=== PATIENT | male | born 1955 | race Caucasian/White ===

== ENCOUNTER → 2017-05-18 | Outpatient (CLI) | payer OTHER ==
[~2017-05-18] MED LIST: ATOR20TA OR; HYDROCODONE PO
[2017-05-18 10:06] LABS: Basophils # (auto) 0 uL; Basophils % (auto) 0.6 % (0.0-2.0); Eosinophils # (auto) 0.3 uL; Eosinophils % (auto) 5.7 % (0.0-7.0); Hematocrit 47.2 % (41.0-53.0); Hemoglobin 16.1 g/dL (13.5-17.5); Lymphocytes # (auto) 2.1 uL; Lymphocytes % (auto) 36.3 % (10.0-50.0); Mean Corpuscular Hemoglobin 32.7 pg (28.0-32.0); Mean Corpuscular Hgb Conc. 34.1 g/dL (32.0-36.0); Mean Corpuscular Volume 95.9 fL (80.0-100.0); Mean Platelet Volume 7.9 fL (6.9-10.8); Monocytes # (auto) 0.5 uL; Monocytes % (auto) 9.4 % (0.0-12.0); Neutrophils # (auto) 2.8 uL; Nucleated Red Blood Cells % 0.1 %; Platelet Count (auto) 238 10^3/uL (140-450); Red Cell Distribution Width 13.5 % (11.8-14.3); White Blood Cell 5.8 10^3/uL (4.4-10.8)
[2017-05-18 10:15] LABS: Urine Bilirubin Negative (Negative); Urine Blood Negative /uL (Negative); Urine Color Yellow (Yellow); Urine Glucose Normal (Normal); Urine Ketone Negative (Negative); Urine Nitrite Negative (Negative); Urine RBC 2 /hpf (0 - 3); Urine Urobilinogen Normal (Negative)
[2017-05-18 10:43] LABS: Albumin 3.9 g/dL (3.4-5.0); BUN/Creatinine Ratio 14.4; Bilirubin, Total 0.4 mg/dL (0.2-1.0); Potassium 4.2 mmol/L (3.5-5.1); Total Protein 7.4 g/dL (6.4-8.2)
== END | disposition home or self-care (01) ==
LOC: LAB 09:38
PROVIDERS: ATTEND Family Medicine
DX: I10 Essential (primary) hypertension (principal); E55.9 Vitamin D deficiency, unspecified; E78.5 Hyperlipidemia, unspecified
CPT/HCPCS: 36415; 80053; 80061; 81001; 82306; 84403; 85025

== ENCOUNTER → 2018-02-15 | Outpatient (CLI) | payer OTHER, MEDICARE ==
[2018-02-15 08:12] LABS: Basophils # (auto) 0 uL; Basophils % (auto) 0.5 % (0.0-2.0); Eosinophils # (auto) 0.3 uL; Eosinophils % (auto) 4.9 % (0.0-7.0); Hematocrit 48.6 % (41.0-53.0); Hemoglobin 16.2 g/dL (13.5-17.5); Lymphocytes # (auto) 2.2 uL; Lymphocytes % (auto) 30.6 % (10.0-50.0); Mean Corpuscular Hemoglobin 31.9 pg (28.0-32.0); Mean Corpuscular Hgb Conc. 33.4 g/dL (32.0-36.0); Mean Corpuscular Volume 95.7 fL (80.0-100.0); Monocytes # (auto) 0.6 uL; Nucleated Red Blood Cells % 0.1 %; Platelet Count (auto) 241 10^3/uL (140-450); Red Blood Cells 5.08 10^6/uL (4.5-5.90); Red Cell Distribution Width 13.7 % (11.8-14.3); White Blood Cell 7.2 10^3/uL (4.4-10.8)
[2018-02-15 08:22] LABS: Urine Bacteria NONE SEEN /hpf (None Seen); Urine Blood Negative /uL (Negative); Urine Specific Gravity 1.018 (1.001-1.035); Urine WBC 5 /hpf (0 - 3)
[2018-02-15 08:43] LABS: Alcohol, Urine < 3.0 mg/dL (0-5); Amphetamine Screen, Urine NEGATIVE (NEGATIVE); Barbiturate Scree,Urine POSITIVE (NEGATIVE); Benzodiazephine Screen, Urine NEGATIVE (NEGATIVE); Cannabinoid Screen, Urine NEGATIVE (NEGATIVE); Cocaine Screen, Urine NEGATIVE (NEGATIVE); Opiate Scree,Urine POSITIVE (NEGATIVE); Phencyclidine Screen, Urine NEGATIVE (NEGATIVE)
[2018-02-15 08:49] LABS: Albumin 3.7 g/dL (3.4-5.0); Bilirubin, Total 0.6 mg/dL (0.2-1.0); Calcium 8.7 mg/dL (8.5-10.1); Potassium 4.3 mmol/L (3.5-5.1); Total Protein 7.5 g/dL (6.4-8.2)
== END | disposition home or self-care (01) ==
LOC: LAB 07:36
PROVIDERS: ATTEND Nurse Practitioner
DX: Z02.83 Encounter for blood-alcohol and blood-drug test (principal); E78.5 Hyperlipidemia, unspecified; Z87.891 Personal history of nicotine dependence
CPT/HCPCS: 36415; 80053; 80061; 80307; 81001; 83036; 84153; 84403; 84443; 85025

== ENCOUNTER → 2018-04-10 | Outpatient (CLI) | payer OTHER, MEDICARE ==
[2018-04-10 09:41] LABS: Basophils # (auto) 0 uL; Basophils % (auto) 0.4 % (0.0-2.0); Eosinophils # (auto) 0.1 uL; Eosinophils % (auto) 2.2 % (0.0-7.0); Hemoglobin 17.3 g/dL (13.5-17.5); Lymphocytes # (auto) 1.3 uL; Lymphocytes % (auto) 20.4 % (10.0-50.0); Mean Corpuscular Hemoglobin 31.8 pg (28.0-32.0); Mean Corpuscular Hgb Conc. 33.8 g/dL (32.0-36.0); Mean Corpuscular Volume 94.1 fL (80.0-100.0); Monocytes # (auto) 0.9 uL; Monocytes % (auto) 13.7 % (0.0-12.0); Neutrophils # (auto) 3.9 uL; Neutrophils % (auto) 63.3 % (37.0-80.0); Platelet Count (auto) 273 10^3/uL (140-450); Red Blood Cells 5.42 10^6/uL (4.5-5.90); Red Cell Distribution Width 13.6 % (11.8-14.3); White Blood Cell 6.2 10^3/uL (4.4-10.8)
[2018-04-10 09:49] LABS: Urine Bacteria NONE SEEN /hpf (None Seen); Urine Blood Negative /uL (Negative); Urine Mucus FEW (None Seen); Urine Specific Gravity 1.018 (1.001-1.035); Urine WBC 2 /hpf (0 - 3)
[2018-04-10 09:58] LABS: BUN/Creatinine Ratio 15.1; Calcium 9.4 mg/dL (8.5-10.1); Potassium 3.6 mmol/L (3.5-5.1); Uric Acid 7.8 mg/dL (3.5-7.2)
[2018-04-10 10:36] LABS: Protein, Urine 11.9 mg/dL (0.0-11.9)
== END | disposition home or self-care (01) ==
LOC: LAB 09:10
PROVIDERS: ATTEND Nurse Practitioner
DX: I10 Essential (primary) hypertension (principal); E78.5 Hyperlipidemia, unspecified; E55.9 Vitamin D deficiency, unspecified
CPT/HCPCS: 36415; 80048; 81001; 82306; 82340; 82570; 84156; 84550; 85025

== ENCOUNTER → 2019-12-05 | Outpatient (CLI) | payer MEDICARE, OTHER ==
[2019-12-05 08:07] LABS: Basophils # (auto) 0 10 ^3/uL (0-0.2); Basophils % (auto) 0.4 % (0.0-2.0); Eosinophils # (auto) 0 10 ^3/uL (0-0.8); Eosinophils % (auto) 0.1 % (0.0-7.0); Hematocrit 43.4 % (41.0-53.0); Hemoglobin 14.7 g/dL (13.5-17.5); Lymphocytes # (auto) 1.7 10 ^3/uL (0.4-5.4); Lymphocytes % (auto) 21.2 % (10.0-50.0); Mean Corpuscular Hemoglobin 32.4 pg (28.0-32.0); Mean Corpuscular Hgb Conc. 33.8 g/dL (32.0-36.0); Mean Corpuscular Volume 95.8 fL (80.0-100.0); Monocytes # (auto) 0.6 10 ^3/uL (0-1.3); Monocytes % (auto) 8.3 % (0.0-12.0); Neutrophils # (auto) 5.5 10 ^3/uL (1.6-8.6); Nucleated Red Blood Cells % 0.1 %; Platelet Count (auto) 236 10^3/uL (140-450); Red Blood Cells 4.53 10^6/uL (4.5-5.90); Red Cell Distribution Width 13.7 % (11.8-14.3); White Blood Cell 7.8 10^3/uL (4.4-10.8)
[2019-12-05 08:08] LABS: Urine Bacteria FEW /hpf (None Seen); Urine Blood Negative /uL (Negative); Urine Specific Gravity 1.014 (1.001-1.035); Urine WBC 1 /hpf (0 - 3)
[2019-12-05 08:32] LABS: Albumin 3.6 g/dL (3.4-5.0); Potassium 3.7 mmol/L (3.5-5.1)
[2019-12-05 08:39] LABS: BUN/Creatinine Ratio 19.9; Bilirubin, Total 0.4 mg/dL (0.2-1.0)
== END | disposition home or self-care (01) ==
LOC: LAB 07:48
PROVIDERS: ATTEND Nurse Practitioner
DX: Z12.5 Encounter for screening for malignant neoplasm of prostate (principal); E78.5 Hyperlipidemia, unspecified; R30.0 Dysuria
CPT/HCPCS: 36415; 80053; 80061; 81001; 84153; 84443; 85025

== ENCOUNTER → 2020-12-16 | Outpatient (CLI) | payer MEDICARE, OTHER ==
[2020-12-16 09:21] LABS: Basophils # (auto) 0 10 ^3/uL (0-0.2); Basophils % (auto) 0.2 % (0.0-2.0); Eosinophils # (auto) 0 10 ^3/uL (0-0.8); Hematocrit 42.5 % (41.0-53.0); Hemoglobin 14.9 g/dL (13.5-17.5); Lymphocytes # (auto) 1.6 10 ^3/uL (0.4-5.4); Lymphocytes % (auto) 12.1 % (10.0-50.0); Mean Corpuscular Hemoglobin 32.9 pg (28.0-32.0); Mean Corpuscular Hgb Conc. 35.1 g/dL (32.0-36.0); Mean Corpuscular Volume 93.6 fL (80.0-100.0); Monocytes # (auto) 0.8 10 ^3/uL (0-1.3); Monocytes % (auto) 5.8 % (0.0-12.0); Neutrophils # (auto) 10.7 10 ^3/uL (1.6-8.6); Neutrophils % (auto) 81.9 % (37.0-80.0); Platelet Count (auto) 320 10^3/uL (140-450); Red Blood Cells 4.55 10^6/uL (4.5-5.90); Red Cell Distribution Width 13.2 % (11.8-14.3); White Blood Cell 13.1 10^3/uL (4.4-10.8)
[2020-12-16 10:01] LABS: Urine Amorphous Crystal FEW /hpf (None Seen); Urine Bacteria FEW /hpf (None Seen); Urine Blood Negative /uL (Negative); Urine Hyaline Cast FEW /lpf (0 - 2); Urine Mucus FEW (None Seen); Urine Specific Gravity 1.028 (1.001-1.035); Urine WBC 4 /hpf (0 - 3)
[2020-12-16 10:16] LABS: Calcium 9.4 mg/dL (8.5-10.1); Potassium 4.2 mmol/L (3.5-5.1)
[2020-12-16 10:27] LABS: Albumin 3.7 g/dL (3.4-5.0); BUN/Creatinine Ratio 20.5; Bilirubin, Total 0.5 mg/dL (0.2-1.0); Total Protein 7.5 g/dL (6.4-8.2)
== END | disposition home or self-care (01) ==
LOC: LAB 09:00
PROVIDERS: ATTEND Nurse Practitioner
DX: I10 Essential (primary) hypertension (principal); E78.5 Hyperlipidemia, unspecified
CPT/HCPCS: 36415; 80053; 80061; 81001; 84403; 84443; 85025; 85049

== ENCOUNTER → 2021-01-20 | Outpatient (CLI) | payer MEDICARE, OTHER | END | disposition home or self-care (01) | LOC: LAB 11:35 | PROVIDERS: ATTEND Nurse Practitioner Family | DX: Z20.822 Contact with and (suspected) exposure to COVID-19 (principal) | CPT/HCPCS: C9803; U0003 ==

== ENCOUNTER 2021-03-20 13:35 | Inpatient (IN) | payer MEDICARE, OTHER ==
[~2021-03-20] VITALS: Ht 172.7 cm; Wt 97.2 kg
[2021-03-20 14:30] LABS: Basophils # (auto) 0 10 ^3/uL (0-0.2); Basophils % (auto) 0.5 % (0.0-2.0); Eosinophils # (auto) 0.1 10 ^3/uL (0-0.8); Hemoglobin 15.3 g/dL (13.5-17.5); Lymphocytes # (auto) 2.2 10 ^3/uL (0.4-5.4); Lymphocytes % (auto) 23.1 % (10.0-50.0); Mean Corpuscular Hemoglobin 32.1 pg (28.0-32.0); Mean Corpuscular Hgb Conc. 34.1 g/dL (32.0-36.0); Mean Corpuscular Volume 94.4 fL (80.0-100.0); Monocytes % (auto) 10.8 % (0.0-12.0); Neutrophils # (auto) 6.2 10 ^3/uL (1.6-8.6); Neutrophils % (auto) 64.6 % (37.0-80.0); Red Blood Cells 4.76 10^6/uL (4.5-5.90); Red Cell Distribution Width 13.5 % (11.8-14.3); White Blood Cell 9.7 10^3/uL (4.4-10.8)
[2021-03-20 14:48] LABS: Alanine Aminotransferase 37 U/L (16-61); Albumin 3.5 g/dL (3.4-5.0); Anion Gap 6 (5-15); Blood Urea Nitrogen 39 mg/dL (7-18); Calcium 9.4 mg/dL (8.5-10.1); Carbon Dioxide 24 mmol/L (21-32); Chloride 108 mmol/L (98-107); Glucose 101 mg/dL (74-106); Magnesium 2.3 mg/dL (1.6-2.6); Potassium 3.8 mmol/L (3.5-5.1); Sodium 138 mmol/L (136-145)
[2021-03-20 14:52] LABS: Alkaline Phosphatase 38 U/L (45-117); Aspartate Aminotransferase 14 U/L (15-37); BUN/Creatinine Ratio 22.8; Bilirubin, Total 0.3 mg/dL (0.2-1.0); GFR African American 51 mL/min; GFR Non-African American 43 mL/min
[2021-03-20] MEDS ORDERED: ASPirin 81 mg TAB PO ONE (18:15)
[2021-03-20] MEDS ORDERED: MORPHINE SULFATE INJECTION 2 MG/ML SYRG IV PRN ×2 (18:15→19:00)
[2021-03-20] MEDS ORDERED: NITROGLYCERIN 0.4 MG SL TAB SL PRN (18:15)
[2021-03-20] MEDS ORDERED: HYDROcodone-ACET 10/325MG TAB PO ONE (18:45)
[2021-03-20] MEDS ORDERED: ONDANSETRON HCL 4 MG/2 ML VIAL IV PRN (19:00)
[2021-03-20] MEDS ORDERED: ACETAMINOPHEN 500 MG TAB PO PRN (19:00)
[2021-03-20] MEDS ORDERED: LACTULOSE 20Gm/30ML SOLN PO PRN (19:00)
[2021-03-20 20:28] VITALS: BP 111/73
[2021-03-20] MEDS: SODIUM CHLORIDE 0.9% 1,000 ML IV SCH ×2 (20:57→22:25)
[2021-03-20 22:00] VITALS: BP 115/60
[2021-03-20] MEDS: ATORVASTATIN 20 MG TAB PO SCH (22:26)
[2021-03-20] MEDS: CARVEDILOL 3.125 MG TAB PO SCH (22:26)
[2021-03-20] MEDS ORDERED: ZOLP10TA PO (22:29)
[2021-03-20] MEDS ORDERED: LISI-716 PO (22:29)
[2021-03-20] MEDS ORDERED: FENO1TAB41 PO (22:29)
[2021-03-20] MEDS ORDERED: CHLO25TA2 PO (22:29)
[2021-03-20] MEDS ORDERED: FINA5TAB4 PO (22:29)
[2021-03-20] MEDS ORDERED: TAM04C PO (22:29)
[2021-03-20] MEDS ORDERED: HYDR-4798 PO (22:29)
[2021-03-20] MEDS ORDERED: BUTA-280 OR (22:29)
[2021-03-21 05:00] VITALS: BP 102/60
[2021-03-21 07:07] LABS: Chloride 109 mmol/L (98-107); Sodium 139 mmol/L (136-145)
[2021-03-21 07:17] LABS: Alanine Aminotransferase 29 U/L (16-61); Alkaline Phosphatase 29 U/L (45-117); Anion Gap 6 (5-15); Aspartate Aminotransferase 15 U/L (15-37); BUN/Creatinine Ratio 27.8; Basophils # (auto) 0 10 ^3/uL (0-0.2); Basophils % (auto) 0.3 % (0.0-2.0); Bilirubin, Total 0.5 mg/dL (0.2-1.0); Blood Urea Nitrogen 37 mg/dL (7-18); Calcium 8.4 mg/dL (8.5-10.1); Carbon Dioxide 24 mmol/L (21-32); Cholesterol 155 mg/dL (< 200); Eosinophils # (auto) 0.1 10 ^3/uL (0-0.8); Eosinophils % (auto) 1.6 % (0.0-7.0); GFR African American 69 mL/min; GFR Non-African American 57 mL/min; Glucose 90 mg/dL (74-106); HDL Cholesterol 46 mg/dL (40-59); Hematocrit 42.5 % (41.0-53.0); LDL Cholesterol 92 mg/dL (< 100); Lymphocytes # (auto) 2.1 10 ^3/uL (0.4-5.4); Lymphocytes % (auto) 28.9 % (10.0-50.0); Mean Corpuscular Hemoglobin 31.5 pg (28.0-32.0); Mean Corpuscular Volume 95.7 fL (80.0-100.0); Monocytes # (auto) 0.6 10 ^3/uL (0-1.3); Monocytes % (auto) 7.9 % (0.0-12.0); Neutrophils # (auto) 4.5 10 ^3/uL (1.6-8.6); Neutrophils % (auto) 61.3 % (37.0-80.0); Nucleated Red Blood Cells % 0.1 %; Red Blood Cells 4.44 10^6/uL (4.5-5.90); Red Cell Distribution Width 13.6 % (11.8-14.3); Triglycerides 134 mg/dL (< 150); White Blood Cell 7.3 10^3/uL (4.4-10.8)
[2021-03-21] MEDS: SODIUM CHLORIDE 0.9% 1,000 ML IV SCH ×2 (08:16→22:47)
[2021-03-21 09:00] VITALS: BP 121/67
[2021-03-21] MEDS: ASPirin 81 mg TAB PO SCH (09:51)
[2021-03-21] MEDS: LISINOPRIL 10 MG TAB PO SCH (09:52)
[2021-03-21] MEDS: ENOXAPARIN SOD 40 MG/0.4 ML SYRINGE SC SCH (09:52)
[2021-03-21] MEDS: CARVEDILOL 3.125 MG TAB PO SCH ×2 (09:52→22:00)
[2021-03-21] MEDS: NITROGLYCERIN 0.2MG/HR TOPICAL PATCH TD SCH (09:53)
[2021-03-21] MEDS: HYDROcodone-ACET 10/325MG TAB PO PRN ×3 (10:14→22:49)
[2021-03-21 13:00] VITALS: BP 115/58
[2021-03-21 17:00] VITALS: BP 125/72
[2021-03-21] MEDS: TAMSULOSIN HYDROCHLORIDE 0.4 MG CAP PO SCH (18:09)
[2021-03-21 22:00] VITALS: BP 119/67
[2021-03-21] MEDS: ATORVASTATIN 20 MG TAB PO SCH (22:49)
[2021-03-22 05:00] VITALS: BP 96/72
[2021-03-22 05:57] LABS: BUN/Creatinine Ratio 22.4; Calcium 8.5 mg/dL (8.5-10.1)
[2021-03-22 06:00] VITALS: BP 113/70
[2021-03-22] MEDS: HYDROcodone-ACET 10/325MG TAB PO PRN ×2 (06:02→13:52)
[2021-03-22 08:00] VITALS: BP 112/69
[2021-03-22] MEDS ORDERED: ADENOSINE 82 MG in GIVE UN-DILUTED 0 ML IV STA (10:03)
[2021-03-22 10:47] VITALS: BP 118/72
[2021-03-22] MEDS: ASPirin 81 mg TAB PO SCH (12:20)
[2021-03-22] MEDS: ENOXAPARIN SOD 40 MG/0.4 ML SYRINGE SC SCH (12:21)
[2021-03-22] MEDS: LISINOPRIL 10 MG TAB PO SCH (12:21)
[2021-03-22] MEDS: CARVEDILOL 3.125 MG TAB PO SCH (12:21)
[2021-03-22] MEDS: SODIUM CHLORIDE 0.9% 1,000 ML IV SCH (12:22)
[2021-03-22] MEDS: NITROGLYCERIN 0.2MG/HR TOPICAL PATCH TD SCH (12:22)
[2021-03-22 13:00] VITALS: BP 128/75
[2021-03-22 17:09] VITALS: BP 115/72
[2021-03-22] MEDS: TAMSULOSIN HYDROCHLORIDE 0.4 MG CAP PO SCH (17:36)
[2021-03-22] MEDS ORDERED: ATORVASTATIN 20 MG TAB PO SCH (22:00)
== END 2021-03-22 20:09 | disposition home or self-care (01) | DRG 311 ==
LOC: ER 13:36 → TELE 18:12 → TELE-WESTW 19:50
PROVIDERS: ADMIT Internal Medicine; ATTEND Internal Medicine Geriatric Medicine
DX: I20.9 Angina pectoris, unspecified (principal); I48.91 Unspecified atrial fibrillation; I73.9 Peripheral vascular disease, unspecified; I12.9 Hypertensive chronic kidney disease with stage 1 through stage 4 chronic kidney disease, or unspecified chronic kidney disease; E78.5 Hyperlipidemia, unspecified; Z20.822 Contact with and (suspected) exposure to COVID-19; N40.0 Benign prostatic hyperplasia without lower urinary tract symptoms; G89.29 Other chronic pain; Z82.0 Family history of epilepsy and other diseases of the nervous system; Z82.49 Family history of ischemic heart disease and other diseases of the circulatory system; Z90.49 Acquired absence of other specified parts of digestive tract; N18.31 Chronic kidney disease, stage 3a
CPT/HCPCS: 36415; 71045; 78452; 80048; 80053; 80061; 82550; 83735; 83880; 84443; 84484; 85025; 85379; 87426; 93005; 93017; 93306; 96374; G0378; J0153

== ENCOUNTER 2021-05-02 00:32 | Emergency (ER) | payer MEDICARE, OTHER ==
[~2021-05-02] VITALS: Ht 172.7 cm; Wt 93.0 kg
[~2021-05-02 00:32] MED LIST changes: +BUTA-280 OR; +CHLO25TA2 PO; +FENO1TAB41 PO; +FINA5TAB4 PO; +HYDR-4798 PO; +LISI-716 PO; +TAM04C PO; +ZOLP10TA PO
[2021-05-02 00:33] VITALS: BP 115/81
== END 2021-05-02 00:58 | disposition left against medical advice (07) ==
LOC: ER 00:32
DX: R00.2 Palpitations (principal); Z53.21 Procedure and treatment not carried out due to patient leaving prior to being seen by health care provider
CPT/HCPCS: 93005

== ENCOUNTER → 2021-07-08 | Outpatient (CLI) | payer MEDICARE, OTHER ==
[2021-07-08 08:39] LABS: Albumin 3.6 g/dL (3.4-5.0); Calcium 9.1 mg/dL (8.5-10.1); Potassium 3.8 mmol/L (3.5-5.1)
[2021-07-08 08:43] LABS: BUN/Creatinine Ratio 19.1; Bilirubin, Total 0.5 mg/dL (0.2-1.0); Total Protein 6.9 g/dL (6.4-8.2)
== END | disposition home or self-care (01) ==
LOC: LAB 08:03
PROVIDERS: ATTEND Nurse Practitioner
DX: R73.9 Hyperglycemia, unspecified (principal)
CPT/HCPCS: 36415; 80053; 83036

== ENCOUNTER 2021-09-12 15:19 | Inpatient (IN) | payer MEDICARE, OTHER ==
[~2021-09-12] VITALS: Ht 172.7 cm; Wt 93.0 kg
[2021-09-12] MEDS ORDERED: ASPirin 81 mg TAB PO ONE (15:45)
[2021-09-12] MEDS ORDERED: METOPROLOL TARTRATE 1MG/1ML-5ML VIAL IV ONE (15:45)
[2021-09-12 17:19] LABS: Basophils # (auto) 0.1 10 ^3/uL (0-0.2); Basophils % (auto) 0.9 % (0.0-2.0); Eosinophils # (auto) 0.3 10 ^3/uL (0-0.8); Eosinophils % (auto) 3.4 % (0.0-7.0); Hematocrit 43.9 % (41.0-53.0); Hemoglobin 15.2 g/dL (13.5-17.5); Lymphocytes # (auto) 2.4 10 ^3/uL (0.4-5.4); Lymphocytes % (auto) 25.6 % (10.0-50.0); Mean Corpuscular Hemoglobin 32.3 pg (28.0-32.0); Mean Corpuscular Hgb Conc. 34.7 g/dL (32.0-36.0); Mean Corpuscular Volume 92.9 fL (80.0-100.0); Monocytes # (auto) 1.1 10 ^3/uL (0-1.3); Monocytes % (auto) 11.7 % (0.0-12.0); Neutrophils # (auto) 5.4 10 ^3/uL (1.6-8.6); Neutrophils % (auto) 58.4 % (37.0-80.0); Nucleated Red Blood Cells % 0.1 %; Red Blood Cells 4.72 10^6/uL (4.5-5.90); Red Cell Distribution Width 13.6 % (11.8-14.3); White Blood Cell 9.3 10^3/uL (4.4-10.8)
[2021-09-12 17:21] LABS: Albumin 3.5 g/dL (3.4-5.0); BUN/Creatinine Ratio 20.8; Calcium 9.5 mg/dL (8.5-10.1); Potassium 3.6 mmol/L (3.5-5.1)
[2021-09-12 17:25] LABS: Bilirubin, Total 0.4 mg/dL (0.2-1.0); Total Protein 7.2 g/dL (6.4-8.2)
[2021-09-12 17:45] LABS: INR 1.01 (0.9-1.15)
[2021-09-12] MEDS ORDERED: MORPHINE SULFATE INJECTION 2 MG/ML SYRG IV PRN ×2 (17:45→19:30)
[2021-09-12] MEDS ORDERED: NITROGLYCERIN 0.4 MG SL TAB SL PRN (17:45)
[2021-09-12 19:30] VITALS: BP 107/75
[2021-09-12] MEDS ORDERED: METOPROLOL TARTRATE 1MG/1ML-5ML VIAL IV PRN (19:30)
[2021-09-12] MEDS ORDERED: ACETAMINOPHEN 325 MG TAB PO PRN (19:30)
[2021-09-12] MEDS ORDERED: HYDROcodone-ACET 5/325MG TAB PO PRN (19:30)
[2021-09-12] MEDS ORDERED: METOPROLOL SUCCINATE XL 50 MG TAB PO ONE (19:30)
[2021-09-12] MEDS ORDERED: DOCUSATE SOD 100 MG CAP PO PRN (19:30)
[2021-09-12] MEDS ORDERED: SODIUM CHLORIDE 0.9% 1,000 ML IV SCH (19:30)
[2021-09-12] MEDS ORDERED: IPRATROPIUM BROM 0.5 MG/2.5ML INH SOL NEB ONE (19:30)
[2021-09-12] MEDS ORDERED: hydrALAZINE HCL 20 MG/ML VL IV PRN (19:30)
[2021-09-12] MEDS ORDERED: HYDROcodone-ACET 5/325MG TAB PO ONE (19:30)
[2021-09-12] MEDS ORDERED: LACTULOSE 20Gm/30ML SOLN PO PRN (19:30)
[2021-09-12] MEDS ORDERED: METOCLOPRAMIDE HCL 5MG/ml INJ 2ml VIAL IV PRN (19:30)
[2021-09-12] MEDS ORDERED: FAMOTIDINE (10MG/ML) 2ML VL IV ONE (19:30)
[2021-09-12] MEDS ORDERED: IPRATROPIUM BROM 0.5 MG/2.5ML INH SOL NEB PRN (19:36)
[2021-09-12 19:54] LABS: Magnesium 2.2 mg/dL (1.6-2.6)
[2021-09-12] MEDS ORDERED: IPRATROPIUM BROM 0.5 MG/2.5ML INH SOL NEB SCH (22:00)
[2021-09-12] MEDS ORDERED: ATORVASTATIN 20 MG TAB PO SCH (22:00)
[2021-09-12] MEDS ORDERED: APIXABAN 5 MG TAB PO SCH (22:00)
[2021-09-13 01:00] VITALS: BP 106/75
[2021-09-13] MEDS ORDERED: BENAZEPRIL HCL 10 MG TAB PO SCH (10:00)
[2021-09-13] MEDS ORDERED: HCTZ 25 MG TAB PO SCH (10:00)
[2021-09-13] MEDS ORDERED: METOPROLOL SUCCINATE XL 50 MG TAB PO SCH (10:00)
[2021-09-13] MEDS ORDERED: ASPirin 81 mg TAB PO SCH (10:00)
[2021-09-13] MEDS ORDERED: FAMOTIDINE (10MG/ML) 2ML VL IV SCH (10:00)
[2021-09-13] MEDS ORDERED: FINASTERIDE 5 MG TAB PO SCH (10:00)
[2021-09-13] MEDS ORDERED: GEMFIBROZIL 600 MG TAB PO SCH (10:00)
[2021-09-13] MEDS ORDERED: TAMSULOSIN HYDROCHLORIDE 0.4 MG CAP PO SCH (18:00)
== END 2021-09-13 01:15 | disposition left against medical advice (07) | DRG 308 ==
LOC: ER 15:19 → TELE 17:41
PROVIDERS: ADMIT Hospitalist; ATTEND Hospitalist
DX: I48.0 Paroxysmal atrial fibrillation (principal); N17.0 Acute kidney failure with tubular necrosis; N18.6 End stage renal disease; I12.0 Hypertensive chronic kidney disease with stage 5 chronic kidney disease or end stage renal disease; E29.1 Testicular hypofunction; E66.01 Morbid (severe) obesity due to excess calories; N40.0 Benign prostatic hyperplasia without lower urinary tract symptoms; Z53.29 Procedure and treatment not carried out because of patient's decision for other reasons; Z79.899 Other long term (current) drug therapy; Z90.49 Acquired absence of other specified parts of digestive tract; Z20.822 Contact with and (suspected) exposure to COVID-19
CPT/HCPCS: 36415; 71045; 80053; 83735; 83880; 84100; 84443; 84484; 85025; 85379; 85610; 85730; 87040; 87086; 93005; 94640; 96361; 96374; G0378; J3490

== ENCOUNTER 2022-04-28 11:43 | Emergency (ER) | payer MEDICARE, OTHER ==
[~2022-04-28] VITALS: Ht 172.7 cm; Wt 95.4 kg
[2022-04-28 12:13] LABS: Basophils # (auto) 0 10 ^3/uL (0-0.2); Basophils % (auto) 0.4 % (0.0-2.0); Eosinophils # (auto) 0 10 ^3/uL (0-0.8); Eosinophils % (auto) 0.1 % (0.0-7.0); Hematocrit 43.3 % (41.0-53.0); Hemoglobin 14.7 g/dL (13.5-17.5); Lymphocytes # (auto) 1.6 10 ^3/uL (0.4-5.4); Mean Corpuscular Hemoglobin 32.2 pg (28.0-32.0); Mean Corpuscular Hgb Conc. 33.9 g/dL (32.0-36.0); Mean Corpuscular Volume 95.2 fL (80.0-100.0); Monocytes # (auto) 0.7 10 ^3/uL (0-1.3); Monocytes % (auto) 8.9 % (0.0-12.0); Neutrophils # (auto) 5.9 10 ^3/uL (1.6-8.6); Neutrophils % (auto) 71.6 % (37.0-80.0); Red Blood Cells 4.55 10^6/uL (4.5-5.90); White Blood Cell 8.2 10^3/uL (4.4-10.8)
[2022-04-28 12:24] LABS: Albumin 3.4 g/dL (3.4-5.0); BUN/Creatinine Ratio 22.5; Calcium 9.1 mg/dL (8.5-10.1); Magnesium 2.1 mg/dL (1.6-2.6); Potassium 3.8 mmol/L (3.5-5.1)
[2022-04-28 12:27] LABS: Bilirubin, Total 0.4 mg/dL (0.2-1.0); Total Protein 6.6 g/dL (6.4-8.2)
[2022-04-28 14:42] VITALS: BP 106/64
== END 2022-04-28 14:52 | disposition home or self-care (01) ==
LOC: ER 11:43
DX: E11.22 Type 2 diabetes mellitus with diabetic chronic kidney disease (principal); I12.9 Hypertensive chronic kidney disease with stage 1 through stage 4 chronic kidney disease, or unspecified chronic kidney disease; R00.2 Palpitations; E11.65 Type 2 diabetes mellitus with hyperglycemia; N18.6 End stage renal disease; I48.91 Unspecified atrial fibrillation; Z79.84 Long term (current) use of oral hypoglycemic drugs; Z90.49 Acquired absence of other specified parts of digestive tract
CPT/HCPCS: 36415; 71045; 80053; 83735; 84443; 84484; 85025; 93005

== ENCOUNTER → 2022-07-13 | Outpatient (CLI) | payer MEDICARE, OTHER ==
[2022-07-13 09:55] LABS: Urine Bacteria NONE SEEN /hpf (None Seen); Urine Blood Negative /uL (Negative); Urine Specific Gravity 1.018 (1.001-1.035); Urine WBC 2 /hpf (0 - 3)
[2022-07-13 09:59] LABS: Basophils # (auto) 0 10 ^3/uL (0-0.2); Basophils % (auto) 0.5 % (0.0-2.0); Eosinophils # (auto) 0.2 10 ^3/uL (0-0.8); Eosinophils % (auto) 3.6 % (0.0-7.0); Hematocrit 42.5 % (41.0-53.0); Hemoglobin 14.1 g/dL (13.5-17.5); Lymphocytes # (auto) 1.6 10 ^3/uL (0.4-5.4); Lymphocytes % (auto) 26.6 % (10.0-50.0); Mean Corpuscular Hemoglobin 31.6 pg (28.0-32.0); Mean Corpuscular Hgb Conc. 33.3 g/dL (32.0-36.0); Mean Corpuscular Volume 95.1 fL (80.0-100.0); Monocytes # (auto) 0.6 10 ^3/uL (0-1.3); Monocytes % (auto) 10.2 % (0.0-12.0); Neutrophils # (auto) 3.6 10 ^3/uL (1.6-8.6); Neutrophils % (auto) 59.1 % (37.0-80.0); Red Blood Cells 4.47 10^6/uL (4.5-5.90); Red Cell Distribution Width 13.4 % (11.8-14.3); White Blood Cell 6.1 10^3/uL (4.4-10.8)
[2022-07-13 10:12] LABS: Potassium 4.4 mmol/L (3.5-5.1)
[2022-07-13 10:21] LABS: Albumin 3.6 g/dL (3.4-5.0); BUN/Creatinine Ratio 16.9; Bilirubin, Total 0.3 mg/dL (0.2-1.0); Calcium 9.2 mg/dL (8.5-10.1); Total Protein 6.8 g/dL (6.4-8.2)
== END | disposition home or self-care (01) ==
LOC: LAB 09:19
PROVIDERS: ATTEND Nurse Practitioner
DX: I10 Essential (primary) hypertension (principal); E78.5 Hyperlipidemia, unspecified
CPT/HCPCS: 36415; 80053; 80061; 81001; 85025

== ENCOUNTER → 2023-10-11 | Outpatient (CLI) | payer MEDICARE, OTHER ==
[~2023-10-11] MED LIST changes: -LISI-716 PO; +LISI10TA34 PO; -TAM04C PO; +TAMS-35 PO
[2023-10-11 08:33] LABS: Urine Bacteria None Seen /hpf (None Seen)
[2023-10-11 08:39] LABS: Basophils # (auto) 0 10 ^3/uL (0-0.2); Eosinophils # (auto) 0.2 10 ^3/uL (0-0.8); Monocytes # (auto) 0.6 10 ^3/uL (0-1.3); Neutrophils # (auto) 3.9 10 ^3/uL (1.6-8.6); White Blood Cell 6.3 10^3/uL (4.4-10.8)
[2023-10-11 08:40] LABS: Basophils % (auto) 0.4 % (0.0-2.0); Eosinophils % (auto) 3.2 % (0.0-7.0); Hemoglobin 18.4 g/dL (13.5-17.5); Lymphocytes # (auto) 1.5 10 ^3/uL (0.4-5.4); Lymphocytes % (auto) 24.5 % (10.0-50.0); Mean Corpuscular Hemoglobin 32.9 pg (28.0-32.0); Mean Corpuscular Hgb Conc. 34.1 g/dL (32.0-36.0); Mean Corpuscular Volume 96.6 fL (80.0-100.0); Monocytes % (auto) 9.4 % (0.0-12.0); Neutrophils % (auto) 62.5 % (37.0-80.0); Nucleated Red Blood Cells % 0.2 %; Red Blood Cells 5.59 10^6/uL (4.5-5.90); Red Cell Distribution Width 14.2 % (11.8-14.3)
[2023-10-11 08:51] LABS: Urine Blood Negative /uL (Negative); Urine Clarity Clear (Clear); Urine Color Yellow (Yellow); Urine Protein, UAD Negative (Negative); Urine Specific Gravity 1.019 (1.001-1.035); Urine Urobilinogen Normal (Negative); Urine WBC 1 /hpf (0 - 3)
[2023-10-11 09:38] LABS: Alanine Aminotransferase 17 U/L (7-40); Alkaline Phosphatase 40 U/L (46-116); Anion Gap 5 (5-15); BUN/Creatinine Ratio 13.3 (10.0-20.0); Blood Urea Nitrogen 19 mg/dL (9-23); Calcium 10.2 mg/dL (8.5-10.1); Carbon Dioxide 30 mmol/L (20-30); Chloride 103 mmol/L (98-107); Glucose 92 mg/dL (74-106); LDL Cholesterol 96 mg/dL (< 100); Potassium 4.3 mmol/L (3.5-5.1); Sodium 138 mmol/L (136-145); Triglycerides 127 mg/dL (< 150)
[2023-10-11 09:39] LABS: Albumin 4.5 g/dL (3.2-4.8); Aspartate Aminotransferase 18 U/L (13-40); Cholesterol 164 mg/dL (< 200)
[2023-10-11 09:40] LABS: HDL Cholesterol 50 mg/dL (40-59); Total Protein 7.2 g/dL (5.7-8.2)
== END | disposition home or self-care (01) ==
LOC: LAB 08:22
PROVIDERS: ATTEND Nurse Practitioner
DX: Z12.5 Encounter for screening for malignant neoplasm of prostate (principal); I10 Essential (primary) hypertension; E78.5 Hyperlipidemia, unspecified; E03.9 Hypothyroidism, unspecified; R73.9 Hyperglycemia, unspecified
CPT/HCPCS: 36415; 80053; 80061; 81001; 83036; 84153; 84403; 84443; 85025

== ENCOUNTER 2024-02-25 16:09 | Emergency (ER) | payer MEDICARE, OTHER ==
[~2024-02-25] VITALS: Ht 170.2 cm; Wt 88.3 kg
[2024-02-25 17:06] LABS: Basophils # (auto) 0 10 ^3/uL (0-0.2); Basophils % (auto) 0.4 % (0.0-2.0); Eosinophils # (auto) 0.1 10 ^3/uL (0-0.8); Eosinophils % (auto) 1.2 % (0.0-7.0); Hematocrit 31.6 % (41.0-53.0); Hemoglobin 10.8 g/dL (13.5-17.5); Lymphocytes # (auto) 1.3 10 ^3/uL (0.4-5.4); Lymphocytes % (auto) 13.8 % (10.0-50.0); Mean Corpuscular Hemoglobin 34.2 pg (28.0-32.0); Mean Corpuscular Hgb Conc. 34.3 g/dL (32.0-36.0); Monocytes # (auto) 0.6 10 ^3/uL (0-1.3); Neutrophils # (auto) 7.1 10 ^3/uL (1.6-8.6); Neutrophils % (auto) 77.6 % (37.0-80.0); Platelet Count (auto) 237 10^3/uL (140-450); Red Blood Cells 3.16 10^6/uL (4.5-5.90); Red Cell Distribution Width 14.2 % (11.8-14.3); White Blood Cell 9.2 10^3/uL (4.4-10.8)
[2024-02-25 17:26] LABS: Alanine Aminotransferase 12 U/L (7-40); Albumin 4.1 g/dL (3.2-4.8); Alkaline Phosphatase 28 U/L (46-116); Anion Gap 6 (5-15); Aspartate Aminotransferase 10 U/L (13-40); BUN/Creatinine Ratio 41.6 (10.0-20.0); Bilirubin, Total 0.5 mg/dL (0.2-1.0); Blood Urea Nitrogen 67 mg/dL (9-23); Calcium 10.6 mg/dL (8.7-10.4); Carbon Dioxide 27 mmol/L (20-30); Chloride 103 mmol/L (98-107); Glucose 111 mg/dL (74-106); Lipase 66 U/L (12-53); Potassium 3.4 mmol/L (3.5-5.1); Sodium 136 mmol/L (136-145); Total Protein 6.2 g/dL (5.7-8.2)
[2024-02-25] MEDS: DICYCLOMINE HCL (10MG/ML) 2 ML AMPULE IM ONE (17:41)
[2024-02-25 22:27] VITALS: BP 112/70; PULSE 92; RESP 16; TEMP 98; O2SAT 98
== END 2024-02-25 22:30 | disposition home or self-care (01) ==
LOC: ER 16:09
DX: S37.099A Other injury of unspecified kidney, initial encounter (principal); D64.9 Anemia, unspecified; R19.5 Other fecal abnormalities; I12.0 Hypertensive chronic kidney disease with stage 5 chronic kidney disease or end stage renal disease; N18.6 End stage renal disease; E78.5 Hyperlipidemia, unspecified; I48.91 Unspecified atrial fibrillation; E66.9 Obesity, unspecified; Z68.30 Body mass index [BMI] 30.0-30.9, adult; Z98.890 Other specified postprocedural states; Z79.899 Other long term (current) drug therapy; X58.XXXA Exposure to other specified factors, initial encounter; Y93.89 Activity, other specified; Y92.89 Other specified places as the place of occurrence of the external cause; Y99.8 Other external cause status
CPT/HCPCS: 36415; 80053; 83690; 85025; 93005; 96372; 99284; J0500

== ENCOUNTER 2024-02-26 08:11 | Inpatient (IN) | payer MEDICARE, OTHER ==
[~2024-02-26] VITALS: Ht 170.2 cm; Wt 88.0 kg
[2024-02-26 09:20] LABS: Basophils # (auto) 0 10 ^3/uL (0-0.2); Basophils % (auto) 0.4 % (0.0-2.0); Eosinophils # (auto) 0.1 10 ^3/uL (0-0.8); Hemoglobin 10.5 g/dL (13.5-17.5); Monocytes # (auto) 0.6 10 ^3/uL (0-1.3)
[2024-02-26 09:23] LABS: Eosinophils % (auto) 1.6 % (0.0-7.0); Hematocrit 29.9 % (41.0-53.0); Lymphocytes # (auto) 0.9 10 ^3/uL (0.4-5.4); Lymphocytes % (auto) 12.4 % (10.0-50.0); Mean Corpuscular Hemoglobin 35.2 pg (28.0-32.0); Mean Corpuscular Hgb Conc. 35.1 g/dL (32.0-36.0); Mean Corpuscular Volume 100.1 fL (80.0-100.0); Monocytes % (auto) 7.5 % (0.0-12.0); Neutrophils # (auto) 5.9 10 ^3/uL (1.6-8.6); Neutrophils % (auto) 78.1 % (37.0-80.0); Nucleated Red Blood Cells % 0.1 %; Platelet Count (auto) 219 10^3/uL (140-450); Red Blood Cells 2.98 10^6/uL (4.5-5.90); Red Cell Distribution Width 14.1 % (11.8-14.3); White Blood Cell 7.5 10^3/uL (4.4-10.8)
[2024-02-26 10:18] LABS: Chloride 102 mmol/L (98-107); Potassium 3.9 mmol/L (3.5-5.1); Sodium 137 mmol/L (136-145)
[2024-02-26 10:19] LABS: Anion Gap 7 (5-15); Calcium 9.8 mg/dL (8.7-10.4); Carbon Dioxide 28 mmol/L (20-30)
[2024-02-26 10:24] LABS: Blood Urea Nitrogen 64 mg/dL (9-23); Glucose 115 mg/dL (74-106)
[2024-02-26 14:21] LABS: Prothrombin Time 10.6 sec (9.3-11.8)
[2024-02-26] MEDS: PANTOPRAZOLE 40 MG/10 ML VIAL INJ IV ONE (14:23)
[2024-02-26] MEDS: SODIUM CHLORIDE 0.9% 1,000 ML IV ONE (14:43)
[2024-02-26] MEDS ORDERED: DOCUSATE SOD 100 MG CAP PO PRN (16:30)
[2024-02-26] MEDS ORDERED: MORPHINE SULFATE INJ 2 MG/ml SYRG IV PRN (16:30)
[2024-02-26] MEDS: PANTOPRAZOLE 80 MG in SODIUM CHL 0.9% 100 ML IV ONE (16:30)
[2024-02-26] MEDS ORDERED: ONDANSETRON HCL 4 MG/2 ML VIAL IV PRN (16:30)
[2024-02-26] MEDS ORDERED: NITROGLYCERIN 0.4 MG SL TAB SL PRN (16:30)
[2024-02-26] MEDS ORDERED: PIPERACILLIN-TAZOB 3.375GM 100 ML IV ONE (17:00)
[2024-02-26] MEDS: PIPERACILLIN-TAZOB 3.375GM 100 ML IV ONE (17:15)
[2024-02-26 18:20] LABS: Hemoglobin 9.2 g/dL (13.5-17.5)
[2024-02-26 18:23] LABS: Hematocrit 26.8 % (41.0-53.0)
[2024-02-26] MEDS: SODIUM CHLORIDE 0.9% 1,000 ML IV SCH (18:25)
[2024-02-26] MEDS: OCTREOTIDE ACETATE 100 MCG in SODIUM CHL 0.9% 50 ML IV ONE (18:45)
[2024-02-26 19:02] VITALS: BP 100/57; PULSE 85; PULSE 88; RESP 16; RESP 18; TEMP 97.7; O2SAT 95; O2SAT 99
[2024-02-26 19:11] VITALS: BP 99/60; PULSE 78; RESP 18; TEMP 98.1; O2SAT 97
[2024-02-26] MEDS: PIPERACILLIN-TAZOB 3.375GM 100 ML IV SCH (19:51)
[2024-02-26 20:00] VITALS: PULSE 88; RESP 16; O2SAT 98
[2024-02-26] MEDS: PANTOPRAZOLE 40mg/50ML NS AE 50 ML IV SCH (20:04)
[2024-02-26 21:00] VITALS: BP 100/57; PULSE 85; RESP 18; TEMP 97.7; O2SAT 95
[2024-02-26] MEDS: OCTREOTIDE ACETATE 500 MCG in SODIUM CHL 0.9% 99 ML IV SCH (23:41)
[2024-02-27] VITALS (8 sets, daily range): BP systolic 99–112; BP diastolic 59–63; PULSE 17–93; RESP 14–81; TEMP 97.8–98.4; O2SAT 91–99
[2024-02-27 00:30] LABS: Hematocrit 24.8 % (41.0-53.0); Hemoglobin 8.6 g/dL (13.5-17.5)
[2024-02-27] MEDS ORDERED: METO25TA93 PO ×2 (02:09)
[2024-02-27] MEDS ORDERED: RIV15T PO ×2 (02:09)
[2024-02-27] MEDS: OCTREOTIDE ACETATE 100 MCG/ML VL ONE (05:20)
[2024-02-27 06:22] LABS: Basophils # (auto) 0 10 ^3/uL (0-0.2); Basophils % (auto) 0.4 % (0.0-2.0); Eosinophils # (auto) 0.2 10 ^3/uL (0-0.8); Monocytes # (auto) 0.6 10 ^3/uL (0-1.3); Neutrophils # (auto) 3.2 10 ^3/uL (1.6-8.6); Nucleated Red Blood Cells % 0.1 %; Red Cell Distribution Width 14.3 % (11.8-14.3); White Blood Cell 5.1 10^3/uL (4.4-10.8)
[2024-02-27 06:25] LABS: Eosinophils % (auto) 4.1 % (0.0-7.0); Hematocrit 25.5 % (41.0-53.0); Hemoglobin 8.8 g/dL (13.5-17.5); Lymphocytes % (auto) 20.7 % (10.0-50.0); Mean Corpuscular Hemoglobin 34.9 pg (28.0-32.0); Mean Corpuscular Hgb Conc. 34.4 g/dL (32.0-36.0); Mean Corpuscular Volume 101.6 fL (80.0-100.0); Monocytes % (auto) 12.3 % (0.0-12.0); Neutrophils % (auto) 62.5 % (37.0-80.0); Platelet Count (auto) 190 10^3/uL (140-450); Red Blood Cells 2.51 10^6/uL (4.5-5.90)
[2024-02-27 06:45] LABS: Alanine Aminotransferase 21 U/L (7-40); Albumin 3.7 g/dL (3.2-4.8); Alkaline Phosphatase 28 U/L (46-116); Anion Gap 5 (5-15); Aspartate Aminotransferase 20 U/L (13-40); BUN/Creatinine Ratio 24.4 (10.0-20.0); Calcium 8.8 mg/dL (8.7-10.4); Carbon Dioxide 26 mmol/L (20-30); Chloride 105 mmol/L (98-107); Glucose 126 mg/dL (74-106); Potassium 3.7 mmol/L (3.5-5.1); Sodium 136 mmol/L (136-145)
[2024-02-27 06:46] LABS: Bilirubin, Total 0.7 mg/dL (0.2-1.0); Total Protein 5.5 g/dL (5.7-8.2)
[2024-02-27 06:52] LABS: Blood Urea Nitrogen 41 mg/dL (9-23)
[2024-02-27] MEDS ORDERED: NALOXONE HCL 0.4 MG/ML VIAL ONE (09:15)
[2024-02-27] MEDS ORDERED: FLUMAZENIL 0.1 MG/ML INJ 10ML MDV IV ONE (09:15)
[2024-02-27] MEDS ORDERED: SODIUM CHLORIDE LOCK 10 ML ONE (09:16)
[2024-02-27] MEDS ORDERED: SIMETHICONE 40 MG/0.6 ML ORAL DROP ONE (09:29)
[2024-02-27 10:04] LABS: INR 1.05 (0.9-1.15); Partial Thromboplastin Time 22.8 SEC (24.5-34.5); Prothrombin Time 11.1 sec (9.3-11.8)
[2024-02-27] MEDS: PANTOPRAZOLE 40 MG/10 ML VIAL INJ IV SCH (10:58)
[2024-02-27 12:59] LABS: Triglycerides 126 mg/dL (< 150)
[2024-02-27 13:00] LABS: LDL Cholesterol 63 mg/dL (< 100)
[2024-02-27 13:01] LABS: Cholesterol 116 mg/dL (< 200); HDL Cholesterol 32 mg/dL (40-59)
[2024-02-27 14:01] LABS: Hemoglobin 9.2 g/dL (13.5-17.5)
[2024-02-27 14:04] LABS: Hematocrit 26.1 % (41.0-53.0)
[2024-02-27] MEDS: LIDOCAINE VISCOUS 2% 15ML UD ONE (14:51)
[2024-02-27] MEDS: fentaNYL CITRATE 100 MCG/2 ML VL ONE (14:53)
[2024-02-27] MEDS: diphenhdrAMINE HCL 50 MG/1 ML VL ONE (14:53)
[2024-02-27] MEDS: MIDAZOLAM HCL 5 MG/ML-1ML VIAL ONE (14:53)
[2024-02-27] MEDS: LACTATED RINGER'S 1,000 ML IV ONE (16:12)
[2024-02-27 16:51] LABS: Urine Bacteria None Seen /hpf (None Seen)
[2024-02-27] MEDS ORDERED: SUCRALFATE 1 GM/10 ML ORAL SUSP GT SCH (17:00)
[2024-02-27 17:14] LABS: Urine Blood Negative /uL (Negative); Urine Clarity Clear (Clear); Urine Color Light-Yellow (Yellow); Urine Protein, UAD Negative (Negative); Urine Specific Gravity 1.015 (1.001-1.035); Urine Urobilinogen Normal (Negative); Urine WBC 1 /hpf (0 - 3); Urine pH 6.5 (5.0-9.0)
[2024-02-27 17:25] LABS: Sodium Urine 116 mmol/L (40-220)
[2024-02-27 17:30] LABS: Protein, Urine 7.5 mg/dL (0.0-11.9)
[2024-02-27 17:31] LABS: Amphetamine Screen, Urine Neg (NEGATIVE)
[2024-02-27 17:32] LABS: Barbiturate Scree,Urine Pos (NEGATIVE); Benzodiazephine Screen, Urine Pos (NEGATIVE); Cannabinoid Screen, Urine Neg (NEGATIVE); Cocaine Screen, Urine Neg (NEGATIVE); Creatinine, Urine 73.97 mg/dL (30.0-125.0); Opiate Scree,Urine Neg (NEGATIVE); Phencyclidine Screen, Urine Neg (NEGATIVE)
[2024-02-27 17:35] LABS: Micro Albumin < 3.0 mg/L (<30.0)
[2024-02-27] MEDS: SUCRALFATE 1 GM/10 ML ORAL SUSP PO SCH (18:00)
[2024-02-27] MEDS: TAMSULOSIN HYDROCHLORIDE 0.4 MG CAP PO SCH (18:01)
[2024-02-27] MEDS: HYDROcodone-ACET 5/325MG TAB PO PRN (18:02)
[2024-02-27 18:37] LABS: Hematocrit 26.3 % (41.0-53.0); Hemoglobin 9.2 g/dL (13.5-17.5)
[2024-02-27 19:04] LABS: % Iron Saturation 9.1 % (20-55)
[2024-02-27] MEDS: ATORVASTATIN 20 MG TAB PO SCH (21:45)
[2024-02-28 01:00] VITALS: BP 108/60; PULSE 79; RESP 18; TEMP 97.6; O2SAT 98
[2024-02-28 05:00] VITALS: BP 95/54; PULSE 69; RESP 17; TEMP 97.7; O2SAT 95
[2024-02-28 07:17] LABS: Basophils # (auto) 0 10 ^3/uL (0-0.2); Basophils % (auto) 0.4 % (0.0-2.0); Eosinophils # (auto) 0.2 10 ^3/uL (0-0.8); Lymphocytes # (auto) 1.2 10 ^3/uL (0.4-5.4); Monocytes # (auto) 0.4 10 ^3/uL (0-1.3); Neutrophils # (auto) 2.5 10 ^3/uL (1.6-8.6); White Blood Cell 4.3 10^3/uL (4.4-10.8)
[2024-02-28 07:19] LABS: Eosinophils % (auto) 4.5 % (0.0-7.0); Hematocrit 24.7 % (41.0-53.0); Hemoglobin 8.6 g/dL (13.5-17.5); Lymphocytes % (auto) 28.2 % (10.0-50.0); Mean Corpuscular Hemoglobin 35.5 pg (28.0-32.0); Mean Corpuscular Volume 101.3 fL (80.0-100.0); Monocytes % (auto) 9.1 % (0.0-12.0); Neutrophils % (auto) 57.8 % (37.0-80.0); Nucleated Red Blood Cells % 0.2 %; Platelet Count (auto) 196 10^3/uL (140-450); Red Blood Cells 2.44 10^6/uL (4.5-5.90); Red Cell Distribution Width 14.1 % (11.8-14.3)
[2024-02-28 07:23] LABS: Chloride 108 mmol/L (98-107); Potassium 3.5 mmol/L (3.5-5.1); Sodium 138 mmol/L (136-145)
[2024-02-28 07:24] LABS: Anion Gap 3 (5-15); Carbon Dioxide 27 mmol/L (20-30)
[2024-02-28 07:25] LABS: Calcium 8.8 mg/dL (8.7-10.4)
[2024-02-28 07:26] LABS: % Iron Saturation 6.8 % (20-55)
[2024-02-28 07:29] LABS: Blood Urea Nitrogen 20 mg/dL (9-23); Glucose 117 mg/dL (74-106)
[2024-02-28] MEDS: IRON SUCROSE COMPLEX 100 ML IV SCH (09:15)
[2024-02-28 09:22] VITALS: BP 137/75; PULSE 79; RESP 20; TEMP 98.2; O2SAT 97
[2024-02-28] MEDS: POTASSIUM CHL 10 Meq TABLET PO SCH (09:52)
[2024-02-28] MEDS: HYDROcodone-ACET 5/325MG TAB PO PRN (09:53)
[2024-02-28] MEDS: POTASSIUM PHOSPHATE 22 MEQ in SODIUM CHL 0.9% 100 ML IV ONE (09:54)
[2024-02-28 13:00] VITALS: BP 122/63; PULSE 91; RESP 18; TEMP 98.5; O2SAT 96
[2024-02-28] MEDS: POTASSIUM CHLORIDE 20 MEQ, LIDOCAINE 1% (LOCAL ANESTH.) 2 ML in SODIUM CHL 0.9% 100 ML IV ONE (16:00)
[2024-02-28 17:00] VITALS: BP 117/66; PULSE 81; RESP 18; TEMP 98.2; O2SAT 94
[2024-02-28] MEDS ORDERED: PANT40T PO ×2 (17:38)
[2024-02-28] MEDS ORDERED: SUCR1SUS26 PO ×2 (17:38)
[2024-02-28 18:18] VITALS: BP 122/63; PULSE 91; RESP 18; TEMP 36.8; O2SAT 96
== END 2024-02-28 18:50 | disposition home or self-care (01) | DRG 377 ==
LOC: ER 08:11 → OVERFLOW 16:39 → EAST 19:09
PROVIDERS: ADMIT Internal Medicine Pulmonary Disease; ATTEND Emergency Medicine
PROC: 0DB68ZX Excision of Stomach, Via Natural or Artificial Opening Endoscopic, Diagnostic (ICD-10-PCS; 2024-02-27)
PROC: 0DB48ZX Excision of Esophagogastric Junction, Via Natural or Artificial Opening Endoscopic, Diagnostic (ICD-10-PCS; 2024-02-27)
PROC: 0DB68ZZ Excision of Stomach, Via Natural or Artificial Opening Endoscopic (ICD-10-PCS; 2024-02-27)
PROC: 0DB98ZX Excision of Duodenum, Via Natural or Artificial Opening Endoscopic, Diagnostic (ICD-10-PCS; principal; 2024-02-27 14:45)
DX: K25.4 Chronic or unspecified gastric ulcer with hemorrhage (principal); N17.0 Acute kidney failure with tubular necrosis; D62 Acute posthemorrhagic anemia; E66.2 Morbid (severe) obesity with alveolar hypoventilation; K22.10 Ulcer of esophagus without bleeding; K52.9 Noninfective gastroenteritis and colitis, unspecified; K76.0 Fatty (change of) liver, not elsewhere classified; E78.5 Hyperlipidemia, unspecified; K57.30 Diverticulosis of large intestine without perforation or abscess without bleeding; I95.9 Hypotension, unspecified; K44.9 Diaphragmatic hernia without obstruction or gangrene; K31.7 Polyp of stomach and duodenum; I48.0 Paroxysmal atrial fibrillation; Z53.29 Procedure and treatment not carried out because of patient's decision for other reasons; K29.70 Gastritis, unspecified, without bleeding; N20.0 Calculus of kidney; N40.0 Benign prostatic hyperplasia without lower urinary tract symptoms; Z68.30 Body mass index [BMI] 30.0-30.9, adult; Z79.891 Long term (current) use of opiate analgesic; Z79.899 Other long term (current) drug therapy; Z90.49 Acquired absence of other specified parts of digestive tract; Z79.01 Long term (current) use of anticoagulants; Z82.0 Family history of epilepsy and other diseases of the nervous system; I12.9 Hypertensive chronic kidney disease with stage 1 through stage 4 chronic kidney disease, or unspecified chronic kidney disease; N18.30 Chronic kidney disease, stage 3 unspecified
CPT/HCPCS: 36415; 71045; 74176; 76705; 76775; 80048; 80053; 80061; 80307; 81001; 82043; 82306; 82570; 82607; 82728; 83036; 83540; 83550; 83690; 83735; 83970; 84100; 84156; 84300; 84443; 85014; 85018; 85025; 85384; 85610; 85730; 86704; 86706; 86708; 86803; 86850; 86900; 86901; 87340; 93005; 96365; 99291; G0378; J1756; J2001; J2250; J2470; J2543

== ENCOUNTER 2025-01-21 10:01 | Outpatient (CLI) | payer MEDICARE, OTHER ==
[~2025-01-21 10:01] MED LIST changes: +METO25TA93 PO; +PANT40T PO; +SUCR1SUS26 PO
[2025-01-21 10:24] LABS: Urine Protein, UAD Negative (Negative)
[2025-01-21 11:02] LABS: Hematocrit 45.6 % (41.0-53.0); Hemoglobin 15.5 g/dL (13.5-17.5); Mean Corpuscular Hemoglobin 30.3 pg (28.0-32.0); Mean Corpuscular Volume 89.5 fL (80.0-100.0); Nucleated Red Blood Cells % 0.1 %
[2025-01-21 11:03] LABS: Alanine Aminotransferase 22 U/L (7-40); Albumin 4.4 g/dL (3.2-4.8); Alkaline Phosphatase 99 U/L (46-116); Anion Gap 7 (5-15); BUN/Creatinine Ratio 11.9 (10.0-20.0); Blood Urea Nitrogen 14 mg/dL (9-23); Calcium 9.4 mg/dL (8.7-10.4); Carbon Dioxide 30 mmol/L (20-31); Chloride 99 mmol/L (98-107); Glucose 93 mg/dL (74-106); Potassium 3.6 mmol/L (3.5-5.1); Sodium 136 mmol/L (136-145); Total Protein 6.7 g/dL (5.7-8.2); Triglycerides 70 mg/dL (< 150)
[2025-01-21 11:04] LABS: Bilirubin, Total 0.5 mg/dL (0.2-1.0); Cholesterol 132 mg/dL (< 200); HDL Cholesterol 49 mg/dL (40-59)
== END 2025-01-21 17:00 | disposition home or self-care (01) ==
LOC: LAB 10:01
PROVIDERS: ATTEND Nurse Practitioner
DX: I10 Essential (primary) hypertension (principal); E78.5 Hyperlipidemia, unspecified; Z79.899 Other long term (current) drug therapy
CPT/HCPCS: 36415; 80053; 80061; 81003; 83036; 84153; 84443; 85025

== ENCOUNTER 2025-03-24 11:34 | Inpatient (IN) | payer MEDICARE, OTHER ==
[~2025-03-24] VITALS: Ht 170.2 cm; Wt 74.7 kg
[~2025-03-24 11:34] MED LIST changes: -ATOR20TA OR; +ATOR20TA PO; -BUTA-280 OR; +BUTA-280 PO
[2025-03-24] MEDS: SODIUM CHLORIDE 0.9% 1,000 ML IVB ONE (12:30)
--- NOTE | 2025-03-24 12:37 | ED.PDOC ---
History of Present Illness HPI Comments 70 year old male with PMHx HTN, ESRD, HLD, a-fib, gastric adenocarcinoma presents to the ED with a chief complaint of generalized body pain onset 3 weeks. Patient states he was diagnosed with gastric adenocarcinoma about 1 year ago, has gotten 80% stomach resection, 6 chemotherapy, 4 immunotherapy at [facility]. For the past 3 weeks, patient has been experiencing generalized body pain, neck pain, chest pain, RT hip pain, abdominal pain, back pain, has morphine patch in place, takes Percocet, last dose was this morning. Spouse states she noticed patient is experiencing poor appetite, generalized weakness, nausea, vomiting and constipation. Denies hematemesis, diarrhea, headache, dizz iness, dysuria, hematuria. No other symptoms or modifying factors present at this time. Chief Complaint: Body Pain Time Seen by MD: 12:25 Primary Care Provider: Floresita Reviewed Notes: Medications, Allergies Allergies: Coded Allergies: No Known Drug Allergy (Verified Allergy, Mild, 04/19/10) Home Meds Active Scripts Pantoprazole Sodium Sesquihydr (Pantoprazole Sodium) 40 Mg Tab, 40 MG PO BID for 30 Days, #60 TAB Prov:MAGEN KISER RESIDENT 02/28/24 Sucralfate (CARAFATE SUSP) 1 Gm/10 Ml Ss, 1 GM PO QID@0600,1130,1700,2200 for 30 Days, #100 ML Prov:MAGEN KISER RESIDENT 02/28/24 Reported Medications Metoprolol Succinate (Metoprolol Succinate Er) 25 Mg Tab, 25 MG PO DAILY for 30 Days, MG 02/27/24 Fenofibrate (Tricor) Unknown Strength Tab, PO, TAB 03/20/21 Tamsulosin Hcl (Flomax) 0.4 Mg Cap, 1 CAP PO DAILY, #30 CAP 11 Refills 03/20/21 Zolpidem Tartrate (Ambien) Unknown Strength Tab, PO QPM, #30 TAB 5 Refills 03/20/21 Rnpuuqusfw-Nkeiqrxipklfo-Rwnxz (FIORICET) Unknown Strength Cap, OR, CAP 03/20/21 Lisinopril (Lisinopril) 10 Mg Tab, 10 MG PO DAILY for 30 Days, MG 03/20/21 Finasteride (Finasteride) Unknown Strength Tab, PO DAILY for 30 Days, MG 03/20/21 Chlorthalidone (Chlorthalidone) Unknown Strength Tab, PO, TAB 03/20/21 Hydrocodone-Acetaminophen (Hydrocodone Bitartrate/AC 10-325 mg) 1 Tab Tab, 1 TAB PO QID, TAB 03/20/21 [Hydrocodone] No Conflict Check, 7.5 - 750 PO TIDP 04/14/10 Atorvastatin Calcium (Lipitor) 20 Mg Tab, 20 MG OR HS 04/14/10 Information Source: Patient, Spouse Mode of Arrival: Wheelchair Severity: Moderate Timing: Weeks Duration: Since onset Prehospital treatment: Pain Meds Past Medical History PAST MEDICAL HISTORY: AFIB, Cancer, ESRD, High Lipids, HTN Surgical History: Cholecystectomy Surgical History (Other): 80% stomach removal, RT knee, cardiac ablasion Family History Family History: Unknown Social History Smoker: Non-Smoker Alcohol: Occasionally Drugs: Denies Drug Use Lives In: Home Constitutional: reports: weakness; denies: chills, diaphoresis, fatigue, fever, malaise, sweats, others EENTM: denies: blurred vision, double vision, ear bleeding, ear discharge, ear drainage, ear pain, ear ringing, eye pain, eye redness, hearing loss, mouth pain, mouth swelling, nasal discharge, nose bleeding, nose congestion, nose pain, photophobia, tearing, throat pain, throat swelling, voice changes, others Respiratory: denies: cough, hemoptysis, orthopnea, SOB at rest, shortness of breath, SOB with excertion, stridor, wheezing, others Cardiovascular: reports: chest pain; denies: dizzy spells, diaphoresis, Dyspnea on exertion, edema, irregular heart beat, left arm pain, lightheadedness, palpitations, PND, syncope, others Gastrointestinal: reports: abdominal pain, constipated, nausea, poor appetite, vomiting; denies: abdomen distended, blood streaked bowels, diarrhea, dysphagia, difficulty swallowing, hematemesis, melena, poor fluid intake, rectal bleeding, rectal pain, others Genitourinary: denies: burning, dysuria, flank pain, frequency, hematuria, incontinence, penile discharge, penile sore, pain, testicle pain, testicle swelling, urgency, others Neurological: reports: weakness; denies: dizziness, fainting, headache, left sided numbness, left sided weakness, numbness, paresthesia, pre-existing deficit, right sided numbness, right sided weakness, seizure, speech problems, tingling, tremors, others Musculoskeletal: reports: back pain, neck pain, others (RT hip pain); denies: gout, joint pain, joint swelling, muscle pain, muscle stiffness Integumetry: denies: bruises, change in color, change in hair/nails, dryness, laceration, lesions, lumps, rash, wounds, others Allergic/Immunocompromised: denies: Difficulty Healing, Frequent Infections, Hives, Itching, others Hematologic/Lymphatic: denies: anemia, blood clots, easy bleeding, easy bruising, swollen glands, others Endocrine: denies: excessive hunger, excessive sweating, excessive thirst, excessive urination, flushing, intolerance to cold, intolerance to heat, unexplained weight gain, unexplained weight loss, others Psychiatric: denies: anxiety, bipolar disorder, depression, hopeless, panic disorder, schizophrenia, sleepless, suicidal, others All Other Systems: Reviewed and Negative Physical Exam General Appearance: Normal HEENT: Pharynx Normal, Scleral Icterus (L), Scleral Icterus (R), TMs Normal Neck: Full Range of Motion, Non-Tender, Normal, Normal Inspection Respiratory: Chest Non-Tender, Lungs Clear, No Accessory Muscle Use, No Respiratory Distress, Normal Breath Sounds Cardiovascular: No Edema, No JVD, No Murmur, No Gallop, Normal Peripheral Pulses, Regular Rate/Rhythm Breast Exam: Deferred Gastrointestinal: No Organomegaly, Non Tender, No Pulsatile Mass, Normal Bowel Sounds, Soft Genitalia: Deferred Pelvic: Deferred Rectal: Deferred Extremities: No calf tenderness, Normal capillary refill, Normal inspection, Normal range of motion, Non-tender, No pedal edema Musculoskeletal : Apperance: Normal Neurologic: Alert, director patient financial services II-XII nml as Tested, No Motor Deficits, Normal Affect, Normal Mood, No Sensory Deficits Cerebellar Function: Normal Reflexes: Normal Skin: Dry, Jaundice, Warm Lymphatic: No Adenopathy Was a procedure done? Was a procedure done?: No Differential Dx Considerations may include: Generalized weakness, electrolyte imbalance, autonomic dysfunction, dehydration X-Ray, Labs, Meds, VS Vital Signs Date Time Temp Pulse Resp B/P (MAP) Pulse Ox O2 Delivery O2 Flow Rate FiO2 03/24/25 13:55 139 20 123/75 (91) 93 03/24/25 11:39 97.7 139 18 114/70 94 97.7 Lab Test 03/24/25 14:55 03/24/25 12:55 Range/Units Lactic Acid Level 1.9 0.4-2.0 mmol/L Ammonia 23 11-32 umol/L White Blood Count 15.3 H 4.4-10.8 10^3/uL Red Blood Count 3.03 L 4.5-5.90 10^6/uL Hemoglobin 9.6 L 13.5-17.5 g/dL Hematocrit 28.6 L 41.0-53.0 % Mean Corpuscular Volume 94.6 80.0-100.0 fL Mean Corpuscular Hemoglobin 31.6 28.0-32.0 pg Mean Corpuscular Hemoglobin Concent 33.4 32.0-36.0 g/dL Red Cell Distribution Width 23.3 H 11.8-14.3 % Platelet Count 91 L 140-450 10^3/uL Mean Platelet Volume 10.3 6.9-10.8 fL Neutrophils (%) (Auto) 37.0-80.0 % Lymphocytes (%) (Auto) 10.0-50.0 % Monocytes (%) (Auto) 0.0-12.0 % Basophils (%) (Auto) 0.0-2.0 % Neutrophils # (Auto) 1.6-8.6 10 ^3/uL Lymphocytes # (Auto) 0.4-5.4 10 ^3/uL Monocytes # (Auto) 0-1.3 10 ^3/uL Differential Total Cells Counted 100.0 100 Neutrophils % (Manual) 83 H 37.0-80.0 Band Neutrophils % (Manual) 5 Lymphocytes % (Manual) 6 L 10.0-50.0 Monocytes % (Manual) 2 0-12 Eosinophils % (Manual) 0 0-7 Basophils % (Manual) 0 0.0-2.0 Metamyelocytes % (manual) 2 Myelocytes % (Manual) 2 Promyelocytes % (Manual) 0 Blast Cells % (Manual) 0 Nucleated Red Blood Cells 16.0 % Reactive Lymphocytes 0 Platelet Estimate Decreased Large Platelets Few Polychromasia Moderate Anisocytosis (manual) Slight Schistocytes Few Sodium Level 133 L 136-145 mmol/L Potassium Level 3.8 3.5-5.1 mmol/L Chloride Level 96 L 98-107 mmol/L Carbon Dioxide Level 24 20-31 mmol/L Anion Gap 13 5-15 Blood Urea Nitrogen 44 H 9-23 mg/dL Creatinine 1.43 H 0.700-1.30 mg/dL Glomerular Filtration Rate Calc 52 >90 mL/min BUN/Creatinine Ratio 30.8 H 10.0-20.0 Serum Glucose 132 H 74-106 mg/dL Hemoglobin A1c 4.1 <5.7 % A1C Calcium Level 9.0 8.7-10.4 mg/dL Total Bilirubin 7.8 H 0.2-1.0 mg/dL Aspartate Amino Transferase (AST) 133 H 13-40 U/L Alanine Aminotransferase (ALT) 69 H 7-40 U/L Alkaline Phosphatase 1042 H 46-116 U/L Total Protein 6.6 5.7-8.2 g/dL Albumin 3.8 3.2-4.8 g/dL Lipase 87 H 12-53 U/L Current Medications Medications (Trade) Dose Ordered Sig/Leonela Route Start Time Stop Time Status Last Admin Sodium Chloride 1,000 ml @ 1,000 mls/hr Q1H ONCE IVB 03/24/25 12:30 03/24/25 13:29 DC 03/24/25 12:30 PROCEDURE(s): ABPL - CT AB PEL WO CON-NO ORAL OR IV IMPRESSION: 1. Moderate bilateral pleural effusions, larger on the right. There is associated atelectasis of the lower lobes. 2. Postoperative changes of central line, cholecystectomy, and partial gastrectomy. 3. Low volume free fluid in the abdomen and pelvis, etiology unknown. 4. Nonobstructing bilateral nephrolithiasis. 5. The moderate prostatic enlargement. New 6. Diffusely mottled appearance of the visualized bony structures likely due to widespread lytic metastatic lesions, less likely due to metabolic disorder or other etiology. 7. No evidence of bowel obstruction, acute appendicitis, or other acute process in the abdomen or pelvis. At this time, the patient had an IV Hep-Lock established The patient was given a 1 L bolus of normal saline The liver enzymes are elevated The total bilirubin is 7.8 The CBC shows an elevated white blood cell count of 15.3 The ammonia level is within normal limits The patient is anemic with a hemoglobin of 9.6 The rest of the chemistry panel shows a BUN of 44 and a creatinine of 1.43 The patient is being admitted at this time. The patient's lactic acid level is within normal limits. Although the patient is tachycardic with an elevated white blood cell count, we feel that the patient does not meet sepsis criteria secondary to the cancer and dehydration. We feel that this most likely is secondary to the patient's cancer status We do not suspect sepsis We will not administer sepsis protocol Images Reviewed?: Images reviewed and evaluated by me Time of 1ST Reevaluation: 12:55 Reevaluation 1ST: Unchanged Patient Education/Counseling: Diagnosis, Treatment, Prognosis Family Education/Counseling: Diagnosis, Treatment, Prognosis SEPSIS Sepsis Screen Date sepsis recognized/suspect: Mar 24, 2025 Time Sepsis recognized/suspect: 1138 Recent Procedure: No On Antibiotic Therapy: No Respiratory Rate >20: No Heart Rate >90: Yes Temp<36 C (96.8 F) or >38.3 C: No SBP <90 or MAP <65 mmHG: No New Acute Mental Status Change: No Is the patient on CPAP, BIPAP,: No Physician Orders Urinalysis (03/24/25 12:30) Ct Ab Pel Wo Con-No Oral Or Iv (03/24/25 12:30) Heplock Iv (03/24/25 12:30) Famotidine Injection (Pepcid Injection) (03/24/25 22:00) Atorvastatin (Lipitor) (03/24/25 22:00) Lisinopril Tablet (Zestril Tablet) (03/25/25 10:00) Metoprolol Tartrate Tablet (Lopressor Ta (03/24/25 22:00) Spironolactone (Aldactone) (03/25/25 10:00) Metronidazole 500mg/100ml (Flagyl 500mg/ (03/24/25 22:00) Ceftriaxone 1gm/50ml (Rocephin) (03/25/25 09:00) * Gi Dvh Flat Cl[employer]ier (03/24/25 14:28) *Consult (03/24/25 14:28) Allergies (03/24/25 14:28) Code Status (03/24/25 14:) Sodium Chloride Lock (Saline Lock Ns) (03/24/25 22:00) Oxygen Per Hour (03/24/25 14:28) Hydrocodone-Acet 5/325mg Tab ([place] 5/32 (03/24/25 14:30) Ondansetron Hcl (Zofran) (03/24/25 14:30) Docusate Sodium Capsule (Colace Capsule) (03/24/25 14:30) Complete Blood Count (03/25/25 04:00) Comprehensive Metabolic Panel (03/25/25 04:00) Condition: Serious (03/24/25 14:28) Clear Liq Diet (03/24/25 Dinner) Bedrest With Bathroom Privileg (03/24/25 14:) Maintain Bed Rest (03/24/25 14:) Sequential Compression Device (03/24/25 ) Abdomen Complete Sonogram (03/24/25 14:) Vital Signs Date Time Temp Pulse Resp B/P (MAP) Pulse Ox O2 Delivery O2 Flow Rate FiO2 03/24/25 13:55 139 20 123/75 (91) 93 03/24/25 11:39 97.7 139 18 114/70 94 97.7 Laboratory Tests Test 03/24/25 12:55 03/24/25 14:55 White Blood Count 15.3 10^3/uL (4.4-10.8) H Lactic Acid Level 1.9 mmol/L (0.4-2.0) Medications Medications Dose Ordered Sig/Leonela Route Start Time Stop Time Status Last Admin Dose Admin Sodium Chloride 1,000 ml @ 1,000 mls/hr Q1H ONCE IVB 03/24/25 12:30 03/24/25 13:29 DC 03/24/25 12:30 Departure 1 Departure Time of Disposition: 16:19 Impression: Primary Impression: Intractable vomiting Additional Impressions: Autonomic dysfunction History of cancer Generalized weakness Disposition: ADMITTED INPATIENT Admit to: Med Surg Condition: Fair Critical Care Note Critical Care Time?: No Stability Stability form required: Yes Unstable for transfer: ED Physician Assesment (Clinical assesment) Heart Score Heart Score: Heart Score Response (Comments) Value History N/A 0 EKG N/A 0 Age N/A 0 Risk Factors N/A 0 Troponin N/A 0 Total 0 I personally scribed for RAJWINDER PALMER MD ([email or web address]) on 03/24/25 at 12:37. Electronically submitted by Katy Napoles ([email or web address]). I personally scribed for RAJWINDER PALMER MD ([email or web address]) on 03/24/25 at 13:53. Electronically submitted by Katy Napoles ([email or web address]). RAJWINDER PALMER MD Mar 24, 2025 12:37
[2025-03-24 13:23] LABS: Hematocrit 28.6 % (41.0-53.0); Hemoglobin 9.6 g/dL (13.5-17.5); Mean Corpuscular Hemoglobin 31.6 pg (28.0-32.0); Mean Corpuscular Volume 94.6 fL (80.0-100.0)
[2025-03-24 13:25] LABS: Albumin 3.8 g/dL (3.2-4.8); Anion Gap 13 (5-15); BUN/Creatinine Ratio 30.8 (10.0-20.0); Calcium 9.0 mg/dL (8.7-10.4); Carbon Dioxide 24 mmol/L (20-31); Potassium 3.8 mmol/L (3.5-5.1); Total Protein 6.6 g/dL (5.7-8.2)
[2025-03-24 13:30] LABS: Alanine Aminotransferase 69 U/L (7-40); Bilirubin, Total 7.8 mg/dL (0.2-1.0); Blood Urea Nitrogen 44 mg/dL (9-23); Chloride 96 mmol/L (98-107); Glucose 132 mg/dL (74-106); Lipase 87 U/L (12-53); Sodium 133 mmol/L (136-145)
[2025-03-24 13:33] LABS: Alkaline Phosphatase 1042 U/L (46-116)
--- NOTE | 2025-03-24 13:39 | DVH ---
EXAM: CT CT AB PEL WO CON-NO ORAL OR IV HISTORY: pain, history of stomach cancer COMPARISON: CT CT AB PEL WO CON-NO ORAL OR IV on DOS: 02/26/24 TECHNIQUE: Helical CT images of the abdomen and pelvis were performed without IV contrast. Sagittal a nd coronal reformatted images were obtained. This CT exam was performed using one or more of the foll owing dose reduction techniques: Automated exposure control, adjustment of the mA and/or kv according to patient size, or the use of iterative reconstruction techniques. Radiation Dose: Abdomen/Pelvis: CTDIvol 7.27 mGy, DLP 412.34 mGy*cm. FINDINGS: CT abdomen: There are moderate bilateral pleural effusions, larger on the right. There is interlobula r septal prominence in the lung bases. There is mild atelectasis in the bilateral lower lobes. Ther e is a partially visualized central line terminating in the SVC-RA junction. There are coronary filiberto ry calcifications. The heart is not enlarged. The noncontrast liver, spleen, pancreas, kidneys, and a drenal glands are unremarkable. The gallbladder is surgically absent. There are postoperative changes of partial gastrectomy. There are bilateral subcentimeter nonobstructing renal calculi. No abdominal aortic aneurysm. CT pelvis: No abnormal bowel dilatation or free air. There is low volume free fluid in the abdomen an d pelvis. There are descending and sigmoid colon diverticula without evidence of acute diverticulitis .. The appendix does not appear dilated or inflamed. The urinary bladder is unremarkable. The prosta te is moderately enlarged. There is a mottled appearance throughout the visualized bony structures. T here is advanced lumbar degenerative disc disease and facet arthropathy with multilevel significant n eural foraminal stenosis bilaterally. IMPRESSION: 1. Moderate bilateral pleural effusions, larger on the right. There is associated atelectasis of the lower lobes. 2. Postoperative changes of central line, cholecystectomy, and partial gastrectomy. 3. Low volume free fluid in the abdomen and pelvis, etiology unknown. 4. Nonobstructing bilateral nephrolithiasis. 5. The moderate prostatic enlargement. New 6. Diffusely mottled appearance of the visualized bony structures likely due to widespread lytic meta static lesions, less likely due to metabolic disorder or other etiology. 7. No evidence of bowel obstruction, acute appendicitis, or other acute process in the abdomen or pel vis.
[2025-03-24 14:04] LABS: Nucleated Red Blood Cells % 16.0 %; Total Cells Counted 100.0 (100)
[2025-03-24 14:06] LABS: Anisocytosis Slight; Polychromasia Moderate
[2025-03-24] MEDS ORDERED: DOCUSATE SOD 100 MG CAP PO PRN (14:30)
[2025-03-24] MEDS ORDERED: ONDANSETRON HCL 4 MG/2 ML VIAL IV PRN (14:30)
--- NOTE | 2025-03-24 15:39 | DVH ---
Technique: Real-time ultrasound imaging of the abdomen was performed with grayscale and color Doppler . Indication: Total bilirubin elevated Comparison: None Findings: Liver measures 15.8 cm. It is increased in echogenicity and echotexture without focal mass. Portal v ein is normal in caliber and demonstrates normal hepatopetal flow. Perihepatic ascites fluid. Gallbladder removed. The common bile duct measures 11 mm. No intrahepatic biliary ductal dilatation. The right kidney measures 10.2 cm. The left kidney measures 10.2 cm. No hydronephrosis or sonographic evidence of nephrolithiasis. The visualized portion of the pancreas is unremarkable. Spleen measures 11.4 cm. The visualized portion of the IVC is unremarkable. Right pleural effusion. Impression: Echogenic liver which can be seen with hepatic steatosis, cirrhosis. Dilated common bile duct which could be secondary to reservoir effect/ underlying cholecystectomy. C orrelate clinically. MRCP can be obtained to further evaluate as clinically indicated. Small amount of ascites fluid.
--- NOTE | 2025-03-24 16:37 | DVHHP2 ---
History of Present Illness Reason for Visit: Generalized weakness History of Present Illness The patient is a 70-year-old male with past medical history of gastric cancer, AFib, chronic renal disease, hyperlipidemia, and hypertension who presented to [facility] ED with complaint of generalized body pain for the past 3 weeks. Patient reports he was diagnosed with gastric adenocarcinoma about 1 year ago, has gotten 80% stomach resection, 6 chemotherapy, 4 immunotherapy at [facility], pending appointment next week with Oncology. Patient states in the last 3 weeks, pain has progressively gotten worse, radiating to the neck, chest, right hip, abdomen, back pain; has morphine patch in place, takes Percocet, last dose was this morning without relief. Patient/spouse reports that he has been experiencing poor appetite, generalized weakness, nausea, vomiting, and constipation. Patient was seen and evaluated in the ED, laboratory data shows WBC 15.3, hemoglobin 9.6, hematocrit 28.6, platelets 55640, sodium 133, potassium 3.8, BUN 44, creatinine 1.43, GFR 52, glucose 132, calcium 9.0, total bilirubin 7.8, AST 133, ALT 69, lipase 87, blood pressure 123/75, heart rate 138, temperature 97.7 F, O2 saturation 94% on oxygen. Abdomen/pelvis CT revealing moderate bilateral pleural effusions, large on the right; there is associated atelectasis of the lower lobes; nonobstructing bilateral nephrolithiasis, moderate prostatic enlargement; diffusely mottled appearance of the visualized bony structures likely due to widespread lytic metastatic lesions, less likely due to metabolic disorder other etiology. Patient was started on IV antibiotic regimen Rocephin, please see medication orders section in the computer. On my assessment, at bedside, patient denies chest pain at this moment, no headache, dizziness, diaphoresis, diarrhea, nausea or vomiting at this moment, fever, no chills. Patient was admitted for further evaluation and medical management. Past Medical History AFIB, Cancer, ESRD, High Lipids, HTN Past Surgical History Cholecystectomy, 80% stomach removal, Right knee surgery, cardiac ablation. Family History Reviewed, noncontributory to the management of this case. Past Social History The patient lives at home, denies smoking, alcohol or illicit drugs abuse. Review of Systems Constitutional: Yes: Weakness, Other (Fatigue); No: Fever, Chills, Sweats, Malaise Eyes: No: Pain, Vision change, Conjunctivae inflammation, Eyelid inflammation, Other, Redness ENT: No: Ear pain, Ear discharge, Nose pain, Nose discharge, Nose congestion, Mouth pain, Mouth swelling, Throat pain, Throat swelling, Other Respiratory: No: Cough, Dry, Shortness of breath, SOB with excertion, Wheezing, Hemoptysis, Pleuritic Pain, Sputum, Wheezing, Other Cardiovascular: Chest Pain; No: Palpitations, Orthopnea, Paroxysmal Noc. Dyspnea, Edema, Lt Headedness, Other Gastrointestinal: Nausea, Vomiting, Abdominal Pain, Constipation, Other (Poor appetite); No: Diarrhea, Melena, Hematochezia Genitourinary: No Dysuria, No Frequency, No Incontinence, No Hematuria, No Retention, No Other Musculoskeletal: other (Right hip pain); No: neck pain, shoulder pain, arm pain, back pain, hand pain, leg pain, foot pain Skin: No: Rash, Lesions, Jaundice, Bruising, Other Neurological: Weakness; No: Numbness, Incoordination, Change in speech, Confusion, Seizures, Other Allergies: Coded Allergies: No Known Drug Allergy (Verified Allergy, Mild, 04/19/10) Medications Current Medications Medications Dose Ordered Sig/Leonela Route Start Time Stop Time Status Last Admin Dose Admin Famotidine 20 mg Q12HR IV 03/24/25 22:00 Atorvastatin Calcium 10 mg HS PO 03/24/25 22:00 Lisinopril 10 mg DAILY PO 03/25/25 10:00 Metoprolol Tartrate 25 mg BID PO 03/24/25 22:00 Spironolactone 50 mg DAILY PO 03/25/25 10:00 Metronidazole 100 ml @ 100 mls/hr Q8HR IV 03/24/25 22:00 Ceftriaxone Sodium 50 ml @ 100 mls/hr DAILY@09 IV 03/25/25 09:00 Sodium Chloride 10 ml Q8HR IV 03/24/25 22:00 Acetaminophen/ Hydrocodone Bitart 1 tab Q4HP PRN PO 03/24/25 14:30 Ondansetron HCl 4 mg Q4HP PRN IV 03/24/25 14:30 Docusate Sodium 100 mg BIDPRN PRN PO 03/24/25 14:30 Exam Vital Signs Vital Signs Date Time Temp Pulse Resp B/P (MAP) Pulse Ox O2 Delivery O2 Flow Rate FiO2 03/24/25 13:55 139 20 123/75 (91) 93 03/24/25 11:39 97.7 97.7 General Appearance: Alert, Oriented X3, Cooperative, No acute distress HEENT: Atraumatic, PERRLA, EOMI, Mucous membr. moist/pink Respiratory: Normal air movement, Other (Diminished breath sound) Cardiovascular: Regular rate, Normal S1, Normal S2, No murmurs Abdominal: Normal bowel sounds, Soft, No hepatospenomegaly, No masses, Other (Reports tenderness) Extremities: No clubbing, No cyanosis, No edema, Normal pulses, No tenderness/swelling Skin: No rashes, No breakdown, No significant lesion Neuro: Normal speech, Normal tone, Sensation intact, Cranial nerves 3-12 NL, Reflexes 2+, Other (Generalized weakness) Psych/Mental Status: Mental status NL, Mood NL Labs/Xrays Labs Test 03/24/25 14:55 03/24/25 12:55 Range/Units Lactic Acid Level 1.9 0.4-2.0 mmol/L Ammonia 23 11-32 umol/L White Blood Count 15.3 H 4.4-10.8 10^3/uL Red Blood Count 3.03 L 4.5-5.90 10^6/uL Hemoglobin 9.6 L 13.5-17.5 g/dL Hematocrit 28.6 L 41.0-53.0 % Mean Corpuscular Volume 94.6 80.0-100.0 fL Mean Corpuscular Hemoglobin 31.6 28.0-32.0 pg Mean Corpuscular Hemoglobin Concent 33.4 32.0-36.0 g/dL Red Cell Distribution Width 23.3 H 11.8-14.3 % Platelet Count 91 L 140-450 10^3/uL Mean Platelet Volume 10.3 6.9-10.8 fL Neutrophils (%) (Auto) 37.0-80.0 % Lymphocytes (%) (Auto) 10.0-50.0 % Monocytes (%) (Auto) 0.0-12.0 % Basophils (%) (Auto) 0.0-2.0 % Neutrophils # (Auto) 1.6-8.6 10 ^3/uL Lymphocytes # (Auto) 0.4-5.4 10 ^3/uL Monocytes # (Auto) 0-1.3 10 ^3/uL Differential Total Cells Counted 100.0 100 Neutrophils % (Manual) 83 H 37.0-80.0 Band Neutrophils % (Manual) 5 Lymphocytes % (Manual) 6 L 10.0-50.0 Monocytes % (Manual) 2 0-12 Eosinophils % (Manual) 0 0-7 Basophils % (Manual) 0 0.0-2.0 Metamyelocytes % (manual) 2 Myelocytes % (Manual) 2 Promyelocytes % (Manual) 0 Blast Cells % (Manual) 0 Nucleated Red Blood Cells 16.0 % Reactive Lymphocytes 0 Platelet Estimate Decreased Large Platelets Few Polychromasia Moderate Anisocytosis (manual) Slight Schistocytes Few Sodium Level 133 L 136-145 mmol/L Potassium Level 3.8 3.5-5.1 mmol/L Chloride Level 96 L 98-107 mmol/L Carbon Dioxide Level 24 20-31 mmol/L Anion Gap 13 5-15 Blood Urea Nitrogen 44 H 9-23 mg/dL Creatinine 1.43 H 0.700-1.30 mg/dL Glomerular Filtration Rate Calc 52 >90 mL/min BUN/Creatinine Ratio 30.8 H 10.0-20.0 Serum Glucose 132 H 74-106 mg/dL Hemoglobin A1c 4.1 <5.7 % A1C Calcium Level 9.0 8.7-10.4 mg/dL Total Bilirubin 7.8 H 0.2-1.0 mg/dL Aspartate Amino Transferase (AST) 133 H 13-40 U/L Alanine Aminotransferase (ALT) 69 H 7-40 U/L Alkaline Phosphatase 1042 H 46-116 U/L Total Protein 6.6 5.7-8.2 g/dL Albumin 3.8 3.2-4.8 g/dL Lipase 87 H 12-53 U/L PATIENT: CHAPARRO BARROSO ACCT: [id number] UNIT: [id number] : 1955 LOC: ER ROOM / BED: / AGE / SEX: 70 / M ADM STATUS: REG ER SERVICE 1230 ORDERING PHYSICIAN: RAJWINDER PALMER MD PROCEDURE(s): ABPL - CT AB PEL WO CON-NO ORAL OR IV REASON: pain ORDER NUMBER(s): [id number], ACCESSION NUMBER(s): [id number] EXAM: CT CT AB PEL WO CON-NO ORAL OR IV HISTORY: pain, history of stomach cancer COMPARISON: CT CT AB PEL WO CON-NO ORAL OR IV on DOS: 02/26/24 TECHNIQUE: Helical CT images of the abdomen and pelvis were performed without IV contrast. Sagittal and coronal reformatted images were obtained. This CT exam was performed using one or more of the following dose reduction techniques: Automated exposure control, adjustment of the mA and/or kv according to patient size, or the use of iterative reconstruction techniques. Radiation Dose: Abdomen/Pelvis: CTDIvol 7.27 mGy, DLP 412.34 mGy*cm. FINDINGS: CT abdomen: There are moderate bilateral pleural effusions, larger on the right. There is interlobular septal prominence in the lung bases. There is mild atelectasis in the bilateral lower lobes. There is a partially visualized ce ntral line terminating in the SVC-RA junction. There are coronary artery calcifications. The heart is not enlarged. The noncontrast liver, spleen, pancreas, kidneys, and adrenal glands are unremarkable. The gallbladder is surgically absent. There are postoperative changes of partial gastrectomy. There are bilateral subcentimeter nonobstructing renal calculi. No abdominal aortic aneurysm. CT pelvis: No abnormal bowel dilatation or free air. There is low volume free fluid in the abdomen and pelvis. There are descending and sigmoid colon diverticula without evidence of acute diverticulitis. The appendix does not appear dilated or inflamed. The urinary bladder is unremarkable. The prostate is moderately enlarged. There is a mottled appearance throughout the visualized bony structures. There is advanced lumbar degenerative disc disease and facet arthropathy with multilevel significant neural foraminal stenosis bilaterally. IMPRESSION: 1. Moderate bilateral pleural effusions, larger on the right. There is assoc iated atelectasis of the lower lobes. 2. Postoperative changes of central line, cholecystectomy, and partial gastrectomy. 3. Low volume free fluid in the abdomen and pelvis, etiology unknown. 4. Nonobstructing bilateral nephrolithiasis. 5. The moderate prostatic enlargement. New 6. Diffusely mottled appearance of the visualized bony structures likely due to widespread lytic metastatic lesions, less likely due to metabolic disorder or other etiology. 7. No evidence of bowel obstruction, acute appendicitis, or other acute process in the abdomen or pelvis. ORDERING PHYSICIAN: DEEDEE MORALES DNP PROCEDURE(s): ABDC - ABDOMEN COMPLETE SONOGRAM REASON: Total bilirubin elevated ORDER NUMBER(s): [id number], ACCESSION NUMBER(s): [id number] Technique: Real-time ultrasound imaging of the abdomen was performed with grayscale and color Doppler. Indication: Total bilirubin elevated Comparison: None Findings: Liver measures 15.8 cm. It is increased in echogenicity and echotexture without focal mass. Portal vein is normal in caliber and demonstrates normal hepatopetal flow. Perihepatic ascites fluid. Gallbladder removed. The common bile duct measures 11 mm. No intrahepatic biliary ductal dilatation. The right kidney measures 10.2 cm. The left kidney measures 10.2 cm. No hydronephrosis or sonographic evidence of nephrolithiasis. The visualized portion of the pancreas is unremarkable. Spleen measures 11.4 cm. The visualized portion of the IVC is unremarkable. Right pleural effusion. Impression: Echogenic liver which can be seen with hepatic steatosis, cirrhosis. Dilated common bile duct which could be secondary to reservoir effect/underlying cholecystectomy. Correlate clinically. MRCP can be obtained to further evaluate as clinically indicated. Small amount of ascites fluid. SEPSIS Sepsis Screen Date sepsis recognized/suspect: Mar 24, 2025 Time Sepsis recognized/suspect: 1139 Recent Procedure: No On Antibiotic Therapy: No Respiratory Rate >20: No Heart Rate >90: Yes Temp<36 C (96.8 F) or >38.3 C: No SBP <90 or MAP <65 mmHG: No New Acute Mental Status Change: No Is the patient on CPAP, BIPAP,: No Physician Orders Urinalysis (03/24/25 12:30) Ct Ab Pel Wo Con-No Oral Or Iv (03/24/25 12:30) Heplock Iv (03/24/25 12:30) Famotidine Injection (Pepcid Injection) (03/24/25 22:00) Atorvastatin (Lipitor) (03/24/25 22:00) Lisinopril Tablet (Zestril Tablet) (03/25/25 10:00) Metoprolol Tartrate Tablet (Lopressor Ta (03/24/25 22:00) Spironolactone (Aldactone) (03/25/25 10:00) Metronidazole 500mg/100ml (Flagyl 500mg/ (03/24/25 22:00) Ceftriaxone 1gm/50ml (Rocephin) (03/25/25 09:00) * [facility] Neurologist (03/24/25 14:28) *Consult (03/24/25 14:) Allergies (03/24/25:) Code Status (03/24/25 14:) Sodium Chloride Lock (Saline Lock Ns) (03/24/25 22:00) Oxygen Per Hour (03/24/25 14:) Hydrocodone-Acet 5/325mg Tab ([place] 5/32 (03/24/25 14:30) Ondansetron Hcl (Zofran) (03/24/25 14:30) Docusate Sodium Capsule (Colace Capsule) (03/24/25 14:30) Complete Blood Count (03/25/25 04:00) Comprehensive Metabolic Panel (03/25/25 04:00) Condition: Serious (03/24/25 14:) Clear Liq Diet (03/24/25 Dinner) Bedrest With Bathroom Privileg (03/24/25:) Maintain Bed Rest (03/24/25:) Sequential Compression Device (03/24/25 ) Abdomen Complete Sonogram (03/24/25:) Vital Signs Date Time Temp Pulse Resp B/P (MAP) Pulse Ox O2 Delivery O2 Flow Rate FiO2 03/24/25 13:55 139 20 123/75 (91) 93 03/24/25 11:39 97.7 139 18 114/70 94 97.7 Laboratory Tests Test 03/24/25 12:55 03/24/25 14:55 White Blood Count 15.3 10^3/uL (4.4-10.8) H Lactic Acid Level 1.9 mmol/L (0.4-2.0) Medications Medications Dose Ordered Sig/Leonela Route Start Time Stop Time Status Last Admin Dose Admin Sodium Chloride 1,000 ml @ 1,000 mls/hr Q1H ONCE IVB 03/24/25 12:30 03/24/25 13:29 DC 03/24/25 12:30 1,000 MLS/HR Assessment/Plan Assessment/Plan Generalized weakness Intractable vomiting Hyponatremia Acute renal injury Metastatic disease Liver cirrhosis Anemia, unspecified Autonomic dysfunction Bilateral pleural effusions Sepsis, unspecified organism Plan 1. Admit to telemetry unit 2. Breathing treatment 3. Pain control management 4. IV antibiotic management 5. Management of fluids and electrolytes 6. Consultation for GI/pulmonology 7. Diagnostic test abdomen/pelvis CT 8. DVT prophylaxis-on SCDs 9. Repeat labs CBC, CMP in a.m. 10. Home medication reviewed and reconciled 11. Continue with current medical management 12. Treatment plan discussed with patient/ and RN. Patient/ verbalized understanding. Plan discussed with: Patient, Other (RN) My Orders Orders - DEEDEE MORALES DNP Procedure Category Date Status Time Famotidine Injection PHA 03/24/25 In Process (Pepcid Injection) 22:00 Atorvastatin (Lipitor) PHA 03/24/25 In Process 22:00 Lisinopril Tablet PHA 03/25/25 In Process (Zestril Tablet) 10:00 Metoprolol Tartrate PHA 03/24/25 In Process Tablet (Lopressor Ta 22:00 Spironolactone PHA 03/25/25 In Process (Aldactone) 10:00 Metronidazole PHA 03/24/25 In Process 500mg/100ml (Flagyl 22:00 Ceftriaxone 1gm/50ml PHA 03/25/25 In Process (Rocephin) 09:00 * [facility] Neurolog[facility] CONS 03/24/25 Transmitted 14:28 *Consult CONS 03/24/25 Transmitted 14:28 Allergies ALTAGRACIA 03/24/25 In Process 14:28 Code Status CODE 03/24/25 Transmitted 14:28 Sodium Chloride Lock PHA 03/24/25 In Process (Saline Lock Ns) 22:00 Oxygen Per Hour RT 03/24/25 Transmitted 14:28 Hydrocodone-Acet PHA 03/24/25 In Process 5/325mg Tab ([place] 14:30 Ondansetron Hcl PHA 03/24/25 In Process (Zofran) 14:30 Docusate Sodium PHA 03/24/25 In Process Capsule (Colace 14:30 Complete Blood Count LAB 03/25/25 Verified 04:00 Comprehensive LAB 03/25/25 Verified Metabolic Panel 04:00 Condition: Serious ALTAGRACIA 03/24/25 In Process 14:28 Clear Liq Diet DIET 03/24/25 Transmitted Dinner Bedrest With Bathroom ALTAGRACIA 03/24/25 In Process Privileg 14:28 Maintain Bed Rest ALTAGRACIA 03/24/25 In Process 14:28 Sequential ALTAGRACIA 03/24/25 In Process Compression Device Abdomen Complete US 03/24/25 Resulted Sonogram 14:28 Problem List: (1) Generalized weakness (2) Metastatic disease (3) Hyponatremia (4) Autonomic dysfunction (5) Intractable vomiting (6) Liver cirrhosis (7) Acute kidney injury (8) Anemia, unspecified (9) Bilateral pleural effusion (10) Sepsis, unspecified organism Date of Service: Mar 24, 2025 Billing Provider: DEEDEE MORALES DNP Common Visit Codes: [id number] INP/OBS CARE (HIGH) DEEDEE MORALES DNP Mar 24, 2025 16:37
[2025-03-24] MEDS ORDERED: NITROGLYCERIN 0.4 MG SL TAB SL PRN (16:45)
[2025-03-24] MEDS ORDERED: MORPHINE SULFATE INJ 2 MG/ml SYRG IV PRN (16:45)
[2025-03-24] MEDS: methylPREDNISolone SOD SUCC 125 MG/2 ML VL IV ONE (18:34)
[2025-03-24] MEDS: TAMSULOSIN HYDROCHLORIDE 0.4 MG CAP PO SCH (18:34)
[2025-03-24] MEDS: HYDROcodone-ACET 5/325MG TAB PO PRN (18:34)
[2025-03-24] MEDS: SODIUM CHLOR 0.9% PF (SALINE LOCK) 10ML VIAL/SYR IV SCH (22:47)
[2025-03-24] MEDS: FAMOTIDINE (10MG/ML) 2ML VL IV SCH (22:47)
[2025-03-24] MEDS: ATORVASTATIN 20 MG TAB PO SCH (22:49)
[2025-03-24] MEDS: METOPROLOL TARTRATE 25 MG TAB PO SCH (22:50)
[2025-03-24] MEDS ORDERED: ESCI1TAB36 PO (23:22)
[2025-03-24] MEDS ORDERED: BUPR20DI TOP (23:22)
[2025-03-24] MEDS ORDERED: BACL10TA PO (23:22)
[2025-03-24] MEDS ORDERED: OXYC-963 PO (23:22)
[2025-03-25 04:39] LABS: Hemoglobin 7.8 g/dL (13.5-17.5)
[2025-03-25 04:41] LABS: Hematocrit 22.9 % (41.0-53.0); Mean Corpuscular Hemoglobin 32.6 pg (28.0-32.0); Mean Corpuscular Volume 95.4 fL (80.0-100.0)
[2025-03-25 04:52] LABS: Albumin 3.3 g/dL (3.2-4.8); Anion Gap 13 (5-15); BUN/Creatinine Ratio 39.7 (10.0-20.0); Carbon Dioxide 23 mmol/L (20-31); Potassium 3.8 mmol/L (3.5-5.1); Total Protein 5.7 g/dL (5.7-8.2)
[2025-03-25 04:53] LABS: Alanine Aminotransferase 61 U/L (7-40); Alkaline Phosphatase 943 U/L (46-116); Bilirubin, Total 5.4 mg/dL (0.2-1.0); Blood Urea Nitrogen 58 mg/dL (9-23); Calcium 8.4 mg/dL (8.7-10.4); Chloride 96 mmol/L (98-107); Glucose 147 mg/dL (74-106); Sodium 132 mmol/L (136-145)
[2025-03-25] MEDS: methylPREDNISolone SOD SUCC 40 MG/ML VL IV SCH (05:30)
[2025-03-25 05:38] LABS: Nucleated Red Blood Cells % 6.0 %; Total Cells Counted 100.0 (100)
[2025-03-25 05:39] LABS: Anisocytosis Moderate; Polychromasia Moderate
[2025-03-25 09:45] VITALS: BP 119/72; PULSE 105; RESP 19; TEMP 98.2; O2SAT 92
[2025-03-25] MEDS: SODIUM CHLORIDE 0.9% 1,000 ML IV SCH (11:30)
[2025-03-25] MEDS: LISINOPRIL 5 MG TAB PO SCH (11:51)
[2025-03-25] MEDS: SPIRONOLACTONE 25 MG TAB PO SCH (11:52)
--- NOTE | 2025-03-25 12:07 | DVHPN2 ---
Subjective Continues to have generalized body pain, more so noted in right left lower quadrant Reviewed: Care Plan, H&P, Labs, Medications, Previous Orders Changes from previous H/P or p: No Changes General: Per HPI Eyes: No Pain, No Vision change, No Conjunctivae inflammation, No Eyelid inflammation, No Other, No Redness ENT: No Ear pain, No Ear discharge, No Nose pain, No Nose discharge, No Nose congestion, No Mouth pain, No Mouth swelling, No Throat pain, No Throat swelling, No Other Cardiovascular: Chest Pain; No Palpitations, No Orthopnea, No Paroxysmal Noc. Dyspnea, No Edema, No Lt Headedness, No Other Respiratory: No Cough, No Dry, No Shortness of breath, No SOB with excertion, No Wheezing, No Hemoptysis, No Pleuritic Pain, No Sputum, No Other Gastrointestinal: Nausea, Vomiting, Abdominal Pain; No Diarrhea; Constipation; No Melena, No Hematochezia; Other (Poor appetite) Genitourinary: No Dysuria, No Frequency, No Incontinence, No Hematuria, No Retention, No Other Musculoskeletal: other (Right hip pain); No neck pain, No shoulder pain, No arm pain, No back pain, No hand pain, No leg pain, No foot pain Skin: No Rash, No Lesions, No Jaundice, No Bruising, No Other Objective Vitals Vital Signs Date Time Temp Pulse Resp B/P (MAP) Pulse Ox O2 Delivery O2 Flow Rate FiO2 03/25/25 11:51 105 119/70 03/25/25 09:45 98.2 19 92 98.2 Intake/Output Intake and Output 03/25/25 07:00 Intake Total 200 ml Balance 200 ml Intake IV Total 200 ml General Appearance: Alert, Oriented X3, Cooperative HEENT: Atraumatic, PERRLA Lungs: Clear to auscultation, Normal air movement Cardiovascular: Normal S1, Normal S2 Abdomen: Normal bowel sounds, Soft, No tenderness, No hepatospenomegaly, No masses Genitourinary: No Apparent Abnormalities Back: Flank Tenderness, Midline Tenderness Musculoskeletal: Normal sensory function, Normal motor function Extremities: No clubbing, No cyanosis Skin: Dry, Intact Psych/Mental Status: Mental status NL, Mood NL Medications Current Medications Medications Dose Ordered Sig/Leonela Route Start Time Stop Time Status Last Admin Dose Admin Famotidine 20 mg Q12HR IV 03/24/25 22:00 03/25/25 11:53 20 MG Atorvastatin Calcium 10 mg HS PO 03/24/25 22:00 03/24/25 22:49 10 MG Lisinopril 10 mg DAILY PO 03/25/25 10:00 03/25/25 11:51 10 MG Metoprolol Tartrate 25 mg BID PO 03/24/25 22:00 03/25/25 11:51 25 MG Spironolactone 50 mg DAILY PO 03/25/25 10:00 03/25/25 11:52 50 MG Metronidazole 100 ml @ 100 mls/hr Q8HR IV 03/24/25 22:00 03/25/25 05:31 100 MLS/HR Ceftriaxone Sodium 50 ml @ 100 mls/hr DAILY@09 IV 03/25/25 09:00 03/25/25 11:53 100 MLS/HR Sodium Chloride 10 ml Q8HR IV 03/24/25 22:00 03/25/25 05:30 10 ML Acetaminophen/ Hydrocodone Bitart 1 tab Q4HP PRN PO 03/24/25 14:30 03/25/25 05:35 1 TAB Ondansetron HCl 4 mg Q4HP PRN IV 03/24/25 14:30 Docusate Sodium 100 mg BIDPRN PRN PO 03/24/25 14:30 Nitroglycerin 0.4 mg Q5MINP PRN SL 03/24/25 16:45 Morphine Sulfate 2 mg Q30M PRN IV 03/24/25 16:45 Methylprednisolone Sodium Succinate 40 mg BID@0600,1800 IV 03/25/25 06:00 03/25/25 05:30 40 MG Tamsulosin HCl 0.4 mg QPM PO 03/24/25 18:00 03/24/25 18:34 0.4 MG Sodium Chloride 1,000 ml @ 75 mls/hr [id number] IV 03/25/25 11:30 Laboratory Results Laboratory Tests 03/25/25 03:31 Chemistry Test 03/24/25 12:55 03/25/25 03:31 Albumin 3.8 g/dL (3.2-4.8) 3.3 g/dL (3.2-4.8) Calcium Level 9.0 mg/dL (8.7-10.4) 8.4 mg/dL (8.7-10.4) L Total Protein 6.6 g/dL (5.7-8.2) 5.7 g/dL (5.7-8.2) Lipid panel Test 03/24/25 12:55 Lipase 87 U/L (12-53) H LFT Test 03/24/25 12:55 03/25/25 03:31 Alanine Aminotransferase (ALT) 69 U/L (7-40) H 61 U/L (7-40) H Alkaline Phosphatase 1042 U/L (46-116) H 943 U/L (46-116) H Aspartate Amino Transferase (AST) 133 U/L (13-40) H 121 U/L (13-40) H Total Bilirubin 7.8 mg/dL (0.2-1.0) H 5.4 mg/dL (0.2-1.0) H HgA1c, TSH Test 03/24/25 12:55 Hemoglobin A1c 4.1 % A1C (<5.7) Labs and/or images reviewed: Labs reviewed by me, Image(s) reviewed by me Assessment/Plan Assessment/Plan Impression: -sepsis -gastric adenocarcinoma with probable metastasis -elevated LFTs, probable cirrhosis versus metastatic disease -rule out bone metastasis -acute kidney injury -anemia, rule out GI bleed Plan: -continue antibiotic therapy with Rocephin and Flagyl -stool for occult blood -CT scan and abdominal ultrasound reviewed -three-phase bone scan -blood and urine culture -pain management: Add morphine and Percocet -repeat labs in a.m. -chest x-ray Total time spent with patient discussing and formulating plan of care: 35 minutes. This medical document was created using an electronic medical record system with [email or web address] dictation system. Although this document has been carefully reviewed, there may still be some phonetic and typographical errors. These areas are purely typographical due to imperfections of the software programs, and do not reflect any compromise in the patient's medical care. Plan discussed with: Patient, Other (RN) My Orders Orders - CORINE ASKEW [employer] SUPERVISOR Procedure Category Date Status Time Sodium Chloride 0.9% PHA 03/25/25 In Process 11:30 Complete Blood Count LAB 03/26/25 Verified 04:00 Comprehensive LAB 03/26/25 Verified Metabolic Panel 04:00 Urinalysis LAB 03/25/25 Logged 11:20 Date of Service: Mar 25, 2025 Billing Provider: CORINE ASKEW NP Common Visit Codes: [id number] INP/OBS CARE(HIGH) CORINE ASKEW NP Mar 25, 2025 12:07
[2025-03-25 12:41] LABS: Urine Protein, UAD Negative (Negative)
[2025-03-25 13:00] VITALS: BP 108/71; PULSE 99; RESP 18; TEMP 98; O2SAT 95
--- NOTE | 2025-03-25 13:31 | DVH ---
EXAM: XY CHEST XRAY 1 VIEW HISTORY: sepsis COMPARISON: XY CHEST XRAY 1 VIEW on DOS: 02/27/24, CHEST PORTABLE on DOS: 04/28/22, CXRP on DOS: 04/28, CHEST PORTABLE on DOS: 09/12/21, CXRP on DOS: 09/12/21 TECHNIQUE: Portable upright AP view of the chest was performed. FINDINGS: There is a new right chest port-A-Cath with its tip in the SVC -RA junction. There are diffuse bilate ral interstitial infiltrates, new versus prior chest x-ray. No pneumothorax or consolidative infiltra isael. The heart is not enlarged. The central pulmonary arteries may be ectatic. There is an old right mid clavicular fracture. IMPRESSION: 1. New diffuse bilateral interstitial infiltrates which may be due to interstitial edema or interstit ial pneumonia. 2. Possible pulmonary arterial hypertension.
--- NOTE | 2025-03-25 14:24 | DVHINCON2 ---
GI Consult Consult Note GI consult note Date of Consultation: 03/25/2025 Chief Complaint: Elevated LFTs Referring Physician: Kvng VERONICA H&P: 70-year-old male admitted with complains of generalized body pain for the past three weeks. Patient diagnosed with gastric adenocarcinoma one year ago and has 80% stomach resection at [facility]. Status post six chemotherapy. Ongoing immunotherapy since November with Opdivo and has about four treatments done so far. Patient complaining of poor appetite abdominal discomfort. And also has nausea vomiting, denies hematemesis. Patient is complaining of constipation no melena or red blood in stool Patient admits to taking about 3000 mg of Tylenol every day along with his pain medications Past Medical History: AFIB, Cancer, ESRD, High Lipids, HTN Past Surgical History: Cholecystectomy, 80% stomach removal, Right knee surgery, cardiac ablation. Social History: NO smoking, drinking ETOH and use of illegal drugs. Family History: Noncontributory Review of Systems: Constitutional: Weakness and fatigue HEENT: no eye pain, no hearing loss, no oral lesion, no scleral icterus Heart: no chest pain, no chest pressure Lung: no cough, no dyspnea with exertion Abdomen: see HPI Physical exam: General: NAD, AAOX3 Chest: lung deluna clear to auscultation Heart: RRR, no murmur Abdomen: non-distended, no tenderness to palpation, +BS Labs: Labs Test 03/25/25 12:00 03/25/25 03:31 03/24/25 14:55 03/24/25 12:55 Range/Units Urine Color Yellow Yellow Urine Clarity Turbid H Clear Urine pH 5.5 5.0-9.0 Urine Specific [place] 1.023 1.001-1.035 Urine Protein Negative Negative Urine Ketones Negative Negative Urine Blood Negative Negative /uL Urine Nitrite Negative Negative Urine Bilirubin Negative Negative Urine Urobilinogen 6 Negative mg/dL Urine Leukocyte Esterase 1+ Negative /uL Urine RBC 1 0 - 3 /hpf Urine Microscopic WBC 7 H 0-3 /HPF Urine Squamous Epithelial Cells Few <5 /hpf Urine Bacteria None seen None Seen /hpf Urine Mucus Few None Seen Urine Glucose Normal Normal mg/dL White Blood Count 14.6 H 4.4-10.8 10^3/uL Red Blood Count 2.40 L 4.5-5.90 10^6/uL Hemoglobin 7.8 #L 13.5-17.5 g/dL Hematocrit 22.9 #L 41.0-53.0 % Mean Corpuscular Volume 95.4 80.0-100.0 fL Mean Corpuscular Hemoglobin 32.6 H 28.0-32.0 pg Mean Corpuscular Hemoglobin Concent 34.1 32.0-36.0 g/dL Red Cell Distribution Width 24.2 H 11.8-14.3 % Platelet Count 72 L 140-450 10^3/uL Mean Platelet Volume 10.9 H 6.9-10.8 fL Neutrophils (%) (Auto) 37.0-80.0 % Lymphocytes (%) (Auto) 10.0-50.0 % Monocytes (%) (Auto) 0.0-12.0 % Basophils (%) (Auto) 0.0-2.0 % Neutrophils # (Auto) 1.6-8.6 10 ^3/uL Lymphocytes # (Auto) 0.4-5.4 10 ^3/uL Monocytes # (Auto) 0-1.3 10 ^3/uL Differential Total Cells Counted 100.0 100 Neutrophils % (Manual) 80 37.0-80.0 Band Neutrophils % (Manual) 5 Lymphocytes % (Manual) 14 10.0-50.0 Monocytes % (Manual) 0 0-12 Eosinophils % (Manual) 0 0-7 Basophils % (Manual) 0 0.0-2.0 Metamyelocytes % (manual) 0 Myelocytes % (Manual) 1 Promyelocytes % (Manual) 0 Blast Cells % (Manual) 0 Nucleated Red Blood Cells 6.0 % Reactive Lymphocytes 0 Platelet Estimate Decreased Large Platelets Few Polychromasia Moderate Anisocytosis (manual) Moderate Schistocytes Few Sodium Level 132 L 136-145 mmol/L Potassium Level 3.8 3.5-5.1 mmol/L Chloride Level 96 L 98-107 mmol/L Carbon Dioxide Level 23 20-31 mmol/L Anion Gap 13 5-15 Blood Urea Nitrogen 58 #H 9-23 mg/dL Creatinine 1.46 H 0.700-1.30 mg/dL Glomerular Filtration Rate Calc 51 >90 mL/min BUN/Creatinine Ratio 39.7 H 10.0-20.0 Serum Glucose 147 H 74-106 mg/dL Calcium Level 8.4 L 8.7-10.4 mg/dL Total Bilirubin 5.4 H 0.2-1.0 mg/dL Aspartate Amino Transferase (AST) 121 H 13-40 U/L Alanine Aminotransferase (ALT) 61 H 7-40 U/L Alkaline Phosphatase 943 H 46-116 U/L Total Protein 5.7 5.7-8.2 g/dL Albumin 3.3 3.2-4.8 g/dL Lactic Acid Level 1.9 0.4-2.0 mmol/L Ammonia 23 11-32 umol/L Hemoglobin A1c 4.1 <5.7 % A1C Lipase 87 H 12-53 U/L Imaging: CT abdomen pelvis IMPRESSION: 1. Moderate bilateral pleural effusions, larger on the right. There is associated atelectasis of the lower lobes. 2. Postoperative changes of central line, cholecystectomy, and partial gastrectomy. 3. Low volume free fluid in the abdomen and pelvis, etiology unknown. 4. Nonobstructing bilateral nephrolithiasis. 5. The moderate prostatic enlargement. New 6. Diffusely mottled appearance of the visualized bony structures likely due to widespread lytic metastatic lesions, less likely due to metabolic disorder or other etiology. 7. No evidence of bowel obstruction, acute appendicitis, or other acute process in the abdomen or pelvis. Abdominal ultrasound Impression: Echogenic liver which can be seen with hepatic steatosis, cirrhosis. Dilated common bile duct which could be secondary to reservoir effect/ underlying cholecystectomy. Correlate clinically. MRCP can be obtained to further evaluate as clinically indicated. Small amount of ascites fluid. Assessment: Gastric adenocarcinoma with probable metastasis Elevated LFTs possible immunotherapy mediated hepatitis Hepatic steatosis Anemia Plan: -discussed with Dr. Sandoval Tylenol level Continue IV steroids Monitor labs in a.m. We will continue to follow patient Plan discussed with patient and RN Thank you for this consult Date of Service: Mar 25, 2025 Billing Provider: MARLYS HAN Common Visit Codes: CONSULT ONLY Consultation Codes: [id number] CONSULT <60MIN MARLYS HAN Mar 25, 2025 14:24
[2025-03-25 17:14] VITALS: BP 107/60; PULSE 99; RESP 18; TEMP 98.2; O2SAT 95
[2025-03-25 20:00] VITALS: PULSE 97; RESP 18
[2025-03-25 21:00] VITALS: BP 102/66; PULSE 103; RESP 19; TEMP 97.9; O2SAT 96
--- NOTE | 2025-03-25 21:22 | DVHINCON2 ---
Date of service: Mar 25, 2025 Referring Physician GLENYS Bagley [facility] Reason for Consultation Acute hypoxic respiratory failure and pleural effusion. History of Present Illness A 70-year-old man with past medical history of gastric cancer, AFib, chronic renal disease, hyperlipidemia, and hypertension who presented to ED on 03/24/25 with complaint of generalized body pain for the past 3 weeks. Patient reports he was diagnosed with gastric adenocarcinoma about 1 year ago, has gotten 80% stomach resection, 6 chemotherapy, 4 immunotherapy at [facility], pending appointment next week with Oncology. Patient states in the last 3 weeks, pain has progressively gotten worse, radiating to the neck, chest, right hip, abdomen, back pain; has morphine patch in place, takes Percocet, last dose was on the morning of presentation without relief. Patient/spouse reports poor appetite, generalized weakness, nausea, vomiting, and constipation. Workup in ED shows WBC 15.3, hemoglobin 9.6, hematocrit 28.6, platelets 65183, sodium 133, potassium 3.8, BUN 44, creatinine 1.43, GFR 52, glucose 132, calcium 9.0, total bilirubin 7.8, AST 133, ALT 69, lipase 87. Initial vitals show blood pressure 123/75, heart rate 138, temperature 97.7 F, O2 saturation 94% on oxygen. Abdomen/pelvis CT revealing moderate bilateral pleural effusions, large on the right; there is associated atelectasis of the lower lobes; nonobstructing stuart ateral nephrolithiasis, moderate prostatic enlargement; diffusely mottled appearance of the visualized bony structures likely due to widespread lytic metastatic lesions, less likely due to metabolic disorder other etiology. Patient was admitted for further care. Pulmonary consultation is requested for evaluation and management of acute hypoxic respiratory failure and pleural effusion. Review of Systems: 14-point review of systems negative unless otherwise noted above. Past Medical History: AFIB, gastric cancer, chronic kidney disease, high Lipids, HTN Past Surgical History: Cholecystectomy, 80% stomach removal, Right knee surgery, cardiac ablation Medications: Reviewed. Allergies: No known drug allergies. Family History: Alzheimer's disease and hypercholesterolemia. Social History: Nonsmoker. No alcohol or illicit drug use. Family History: Alzheimer's disease G8 MOTHER High cholesterol G8 FATHER Allergies: Coded Allergies: No Known Drug Allergy (Verified Allergy, Mild, 04/19/10) Home Meds Active Scripts Pantoprazole Sodium Sesquihydr (Pantoprazole Sodium) 40 Mg Tab, 40 MG PO BID for 30 Days, #60 TAB Prov:MAGEN KISER RESIDENT 02/28/24 Reported Medications Oxycodone W/ Acetaminophen (Oxycodone/Acetaminophen 10-300 mg) 1 Tab Tab, 1 TAB PO QID PRN for PAIN SCALE 7 THRU 10 03/24/25 Escitalopram Oxalate (ESCITALOPRAM OXALATE) 10 Mg Tab, 1 TAB PO DAILY 03/24/25 Buprenorphine (Buprenorphine) 20 Mcg/Hr Dis, 1 PATCH TOP QWEEKLY 03/24/25 Baclofen (Baclofen) 10 Mg Tab, 1 TAB PO Q12HP PRN for MUSCLE SPASM 03/24/25 Metoprolol Succinate (Metoprolol Succinate Er) 25 Mg Tab, 25 MG PO DAILY for 30 Days, MG 02/27/24 Fenofibrate (Tricor) Unknown Strength Tab, 145 MG PO DAILY, TAB 03/20/21 Tamsulosin Hcl (Flomax) 0.4 Mg Cap, 1 CAP PO DAILY, #30 CAP 11 Refills 03/20/21 Zolpidem Tartrate (Ambien) Unknown Strength Tab, 5 MG PO HS, #30 TAB 5 Refills 03/20/21 Isdncunboq-[id number]-Jwkwo (FIORICET) Unknown Strength Cap, PO DAILY PRN for HEADACHE, CAP 03/20/21 Finasteride (Finasteride) Unknown Strength Tab, 5 MG PO DAILY for 30 Days, MG 03/20/21 Chlorthalidone (Chlorthalidone) Unknown Strength Tab, 25 MG PO DAILY, TAB 03/20/21 Atorvastatin Calcium (Lipitor) 20 Mg Tab, 20 MG PO HS 04/14/10 Current Medications Current Medications Medications (Trade) Dose Ordered Sig/Leonela Route PRN Reason Start Time Stop Time Status Last Admin Famotidine (Pepcid Injection) 20 mg Q12HR IV 03/24/25 22:00 03/25/25 20:31 Atorvastatin Calcium (Lipitor) 10 mg HS PO 03/24/25 22:00 03/25/25 12:09 DC 03/24/25 22:49 Lisinopril (Zestril Tablet) 10 mg DAILY PO 03/25/25 10:00 03/25/25 11:51 Metoprolol Tartrate (Lopressor Tablet) 25 mg BID PO 03/24/25 22:00 03/25/25 20:30 Spironolactone (Aldactone) 50 mg DAILY PO 03/25/25 10:00 03/25/25 12:09 DC 03/25/25 11:52 Metronidazole 100 ml @ 100 mls/hr Q8HR IV 03/24/25 22:00 03/25/25 20:31 Ceftriaxone Sodium 50 ml @ 100 mls/hr DAILY@09 IV 03/25/25 09:00 03/25/25 11:53 Sodium Chloride (Saline Lock Ns) 10 ml Q8HR IV 03/24/25 22:00 03/25/25 20:31 Methylprednisolone Sodium Succinate (Solu Medrol) 40 mg BID@0600,1800 IV 03/25/25 06:00 03/25/25 17:05 Sodium Chloride 1,000 ml @ 75 mls/hr [id number] IV 03/25/25 11:30 03/25/25 11:30 Vital Signs Vital Signs Date Time Temp Pulse Resp B/P (MAP) Pulse Ox O2 Delivery O2 Flow Rate FiO2 03/25/25 20:30 103 102/66 03/25/25 17:14 98.2 18 95 98.2 Physical Exam Gen.: Patient lying in bed in no apparent distress. On supplemental oxygen. Head: Normocephalic, atraumatic. Eyes: EOMI/PERRLA. Ears: Normal hearing. Normal anatomy. Neck/trachea: Trachea midline, supple. Nose: Normal external anatomy. Mouth: Moist mucous membranes. Chest: Decreased air entry bilaterally. No wheezing or rhonchi. Cardiovascular: Positive S1, positive S2. Regular rate and rhythm. Abdomen: Positive bowel sounds in all 4 quadrants. Soft, non-tender, non- distended. : Deferred. Rectal: Deferred. Skin: Warm, dry. Intact. Extremities: 2+ radial pulses bilaterally. No lower extremity edema. Neuro: Awake, alert, oriented x3. No gross motor or sensory deficits. Cranial n erves II through XII intact. Gait not assessed. Labs/Diagnostic Data Labs Test 03/25/25 12:00 03/25/25 03:31 03/24/25 14:55 03/24/25 12:55 Range/Units Urine Color Yellow Yellow Urine Clarity Turbid H Clear Urine pH 5.5 5.0-9.0 Urine Specific [place] 1.023 1.001-1.035 Urine Protein Negative Negative Urine Ketones Negative Negative Urine Blood Negative Negative /uL Urine Nitrite Negative Negative Urine Bilirubin Negative Negative Urine Urobilinogen 6 Negative mg/dL Urine Leukocyte Esterase 1+ Negative /uL Urine RBC 1 0 - 3 /hpf Urine Microscopic WBC 7 H 0-3 /HPF Urine Squamous Epithelial Cells Few <5 /hpf Urine Bacteria None seen None Seen /hpf Urine Mucus Few None Seen Urine Glucose Normal Normal mg/dL White Blood Count 14.6 H 4.4-10.8 10^3/uL Red Blood Count 2.40 L 4.5-5.90 10^6/uL Hemoglobin 7.8 #L 13.5-17.5 g/dL Hematocrit 22.9 #L 41.0-53.0 % Mean Corpuscular Volume 95.4 80.0-100.0 fL Mean Corpuscular Hemoglobin 32.6 H 28.0-32.0 pg Mean Corpuscular Hemoglobin Concent 34.1 32.0-36.0 g/dL Red Cell Distribution Width 24.2 H 11.8-14.3 % Platelet Count 72 L 140-450 10^3/uL Mean Platelet Volume 10.9 H 6.9-10.8 fL Neutrophils (%) (Auto) 37.0-80.0 % Lymphocytes (%) (Auto) 10.0-50.0 % Monocytes (%) (Auto) 0.0-12.0 % Basophils (%) (Auto) 0.0-2.0 % Neutrophils # (Auto) 1.6-8.6 10 ^3/uL Lymphocytes # (Auto) 0.4-5.4 10 ^3/uL Monocytes # (Auto) 0-1.3 10 ^3/uL Differential Total Cells Counted 100.0 100 Neutrophils % (Manual) 80 37.0-80.0 Band Neutrophils % (Manual) 5 Lymphocytes % (Manual) 14 10.0-50.0 Monocytes % (Manual) 0 0-12 Eosinophils % (Manual) 0 0-7 Basophils % (Manual) 0 0.0-2.0 Metamyelocytes % (manual) 0 Myelocytes % (Manual) 1 Promyelocytes % (Manual) 0 Blast Cells % (Manual) 0 Nucleated Red Blood Cells 6.0 % Reactive Lymphocytes 0 Platelet Estimate Decreased Large Platelets Few Polychromasia Moderate Anisocytosis (manual) Moderate Schistocytes Few Sodium Level 132 L 136-145 mmol/L Potassium Level 3.8 3.5-5.1 mmol/L Chloride Level 96 L 98-107 mmol/L Carbon Dioxide Level 23 20-31 mmol/L Anion Gap 13 5-15 Blood Urea Nitrogen 58 #H 9-23 mg/dL Creatinine 1.46 H 0.700-1.30 mg/dL Glomerular Filtration Rate Calc 51 >90 mL/min BUN/Creatinine Ratio 39.7 H 10.0-20.0 Serum Glucose 147 H 74-106 mg/dL Calcium Level 8.4 L 8.7-10.4 mg/dL Total Bilirubin 5.4 H 0.2-1.0 mg/dL Aspartate Amino Transferase (AST) 121 H 13-40 U/L Alanine Aminotransferase (ALT) 61 H 7-40 U/L Alkaline Phosphatase 943 H 46-116 U/L Total Protein 5.7 5.7-8.2 g/dL Albumin 3.3 3.2-4.8 g/dL Acetaminophen Level 5.0 L 10.0-20.0 UG/ML Lactic Acid Level 1.9 0.4-2.0 mmol/L Ammonia 23 11-32 umol/L Hemoglobin A1c 4.1 <5.7 % A1C Lipase 87 H 12-53 U/L Assessment Impression: Acute hypoxic respiratory failure Dependence on supplemental oxygen Liver cirrhosis Pleural effusion Atelectasis Metastatic disease Sepsis Plan: Supplemental oxygen Titrate to keep O2 sats above 92%. Currently on 2 LPM NC Taper O2 as tolerated. CXR reviewed, demonstrates new diffuse bilateral interstitial infiltrates which may be due to interstitial edema or interstitial pneumonia. Possible pulmonary arterial hypertension. Continue antibiotics Follow up cultures IV steroids Incentive spirometry d/t atelectasis. Blood pressure control Pepcid for GI prophylaxis Diurese as tolerated Monitor renal function. Monitor electrolytes. Supplement as necessary. Monitor ins and outs. Plan for right thoracentesis in the AM. Obtain limited chest ultrasound in AM to evaluate if pleural effusion amenable for thoracentesis. Abdomen/pelvis CT on 03/24 revealing moderate bilateral pleural effusions, large on the right; associated atelectasis of the lower lobes; nonobstructing bilateral nephrolithiasis, moderate prostatic enlargement; diffusely mottled appearance of the visualized bony structures likely due to widespread lytic metastatic lesions, less likely due to metabolic disorder other etiology. Abdominal ultrasound on 03/24 showed echogenic liver which can be seen with hepatic steatosis, cirrhosis. Dilated common bile duct which could be secondary to reservoir effect/ underlying cholecystectomy. Small amount of ascites. Monitor LFTs Follow up GI recommendations Pain control Avoid oversedation Monitor hemoglobin Transfuse if less than 7.0 g/dL. GI/DVT prophylaxis. Prognosis: Poor given patient's multiple co-morbidities. Rest of plan per hospitalist and other consultants. Thank you, GLENYS Bagley, for allowing me to participate in this patient's care. Further recommendations will depend on the patient's clinical course. Please do not hesitate to contact me if you have any questions or concerns. This medical document was created using an electronic medical record system with [employer] dictation system. Although these documentations are being carefully reviewed, there may still be some phonetic and typographical changes. The errors are purely typographical, due to imperfection on the software program, and do not reflect any compromise in the patient's medical care. Plan discussed with: Patient, Other (RN/GLENYS Bagley/) Visit Coding Pulmonary Billing Provider: KEELY FUENTES MD Date of Service if different f: Mar 25, 2025 Common Visit Codes: [id number] INP/OBS CARE (HIGH) KEELY FUENTES MD Mar 25, 2025 21:22
[2025-03-26] VITALS (13 sets, daily range): BP systolic 83–108; BP diastolic 52–75; PULSE 82–117; RESP 18–30; TEMP 97.3–97.9; O2SAT 63–98
[2025-03-26 07:12] LABS: Hematocrit 18.6 % (41.0-53.0)
[2025-03-26 07:15] LABS: Mean Corpuscular Hemoglobin 33.4 pg (28.0-32.0); Mean Corpuscular Volume 98.0 fL (80.0-100.0)
[2025-03-26 07:34] LABS: INR 1.54 (0.9-1.15); Partial Thromboplastin Time 26.7 SEC (24.5-34.5); Prothrombin Time 15.6 sec (9.3-11.8)
[2025-03-26 07:38] LABS: Hemoglobin 6.4 g/dL (13.5-17.5)
[2025-03-26 07:54] LABS: Anion Gap 15 (5-15); BUN/Creatinine Ratio 55.2 (10.0-20.0); Carbon Dioxide 21 mmol/L (20-31); Chloride 100 mmol/L (98-107)
[2025-03-26 07:57] LABS: Alanine Aminotransferase 60 U/L (7-40); Albumin 3.1 g/dL (3.2-4.8); Alkaline Phosphatase 877 U/L (46-116); Bilirubin, Total 4.1 mg/dL (0.2-1.0); Calcium 7.9 mg/dL (8.7-10.4); Glucose 137 mg/dL (74-106); Potassium 3.5 mmol/L (3.5-5.1); Sodium 136 mmol/L (136-145); Total Protein 5.2 g/dL (5.7-8.2)
[2025-03-26 07:59] LABS: Blood Urea Nitrogen 85 mg/dL (9-23)
[2025-03-26] MEDS ORDERED: MORPHINE SULFATE INJ 2 MG/ml SYRG IV PRN (08:30)
[2025-03-26 08:59] LABS: Giant Platelets Few; Nucleated Red Blood Cells % 20.0 %; Smudge Cells 6 /100 WBC; Total Cells Counted 100.0 (100)
[2025-03-26 09:00] LABS: Anisocytosis Moderate
[2025-03-26 09:01] LABS: Polychromasia Moderate
[2025-03-26] MEDS: PANTOPRAZOLE 40 MG/10 ML VIAL INJ IV SCH (10:29)
[2025-03-26] MEDS: OXYCODONE W/ ACETAMINOPHEN 5/325MG TABLET PO PRN ×2 (10:30→16:07)
[2025-03-26] MEDS ORDERED: VANCOMYCIN PER PHARMACY 0 MG IV SCH (13:15)
--- NOTE | 2025-03-26 13:45 | DVHPN2 ---
Subjective Continues to have generalized body pain, more so noted in right left lower quadrant Reviewed: Care Plan, H&P, Labs, Medications, Previous Orders Changes from previous H/P or p: No Changes General: Per HPI Eyes: No Pain, No Vision change, No Conjunctivae inflammation, No Eyelid inflammation, No Other, No Redness ENT: No Ear pain, No Ear discharge, No Nose pain, No Nose discharge, No Nose congestion, No Mouth pain, No Mouth swelling, No Throat pain, No Throat swelling, No Other Cardiovascular: Chest Pain; No Palpitations, No Orthopnea, No Paroxysmal Noc. Dyspnea, No Edema, No Lt Headedness, No Other Respiratory: No Cough, No Dry, No Shortness of breath, No SOB with excertion, No Wheezing, No Hemoptysis, No Pleuritic Pain, No Sputum, No Other Gastrointestinal: Nausea, Vomiting, Abdominal Pain; No Diarrhea; Constipation; No Melena, No Hematochezia; Other (Poor appetite) Genitourinary: No Dysuria, No Frequency, No Incontinence, No Hematuria, No Retention, No Other Musculoskeletal: other (Right hip pain); No neck pain, No shoulder pain, No arm pain, No back pain, No hand pain, No leg pain, No foot pain Skin: No Rash, No Lesions, No Jaundice, No Bruising, No Other Objective Vitals Vital Signs Date Time Temp Pulse Resp B/P (MAP) Pulse Ox O2 Delivery O2 Flow Rate FiO2 03/26/25 13:00 97.4 105 18 105/69 (81) 91 97.4 03/25/25 20:00 Nasal Cannula* 2 28 Intake/Output Intake and Output 03/26/25 07:00 Intake Total 740 ml Output Total 1580 ml Balance -840 ml Intake Oral 740 ml Output Urine Total 1580 ml General Appearance: Alert, Oriented X3, Cooperative HEENT: Atraumatic, PERRLA Lungs: Clear to auscultation, Normal air movement Cardiovascular: Normal S1, Normal S2 Abdomen: Normal bowel sounds, Soft, No tenderness, No hepatospenomegaly, No masses Genitourinary: No Apparent Abnormalities Back: Flank Tenderness, Midline Tenderness Musculoskeletal: Normal sensory function, Normal motor function Extremities: No clubbing, No cyanosis Skin: Dry, Intact Psych/Mental Status: Mental status NL, Mood NL Medications Current Medications Medications Dose Ordered Sig/Leonela Route Start Time Stop Time Status Last Admin Dose Admin Metoprolol Tartrate 25 mg BID PO 03/24/25 22:00 03/26/25 10:30 25 MG Sodium Chloride 10 ml Q8HR IV 03/24/25 22:00 03/26/25 05:18 10 ML Ondansetron HCl 4 mg Q4HP PRN IV 03/24/25 14:30 Docusate Sodium 100 mg BIDPRN PRN PO 03/24/25 14:30 Nitroglycerin 0.4 mg Q5MINP PRN SL 03/24/25 16:45 Morphine Sulfate 2 mg Q30M PRN IV 03/24/25 16:45 Methylprednisolone Sodium Succinate 40 mg BID@0600,1800 IV 03/25/25 06:00 03/26/25 05:18 40 MG Tamsulosin HCl 0.4 mg QPM PO 03/24/25 18:00 03/25/25 17:04 0.4 MG Pantoprazole Sodium 40 mg BID IV 03/26/25 10:00 03/26/25 10:29 40 MG Morphine Sulfate 2 mg Q3HPRN PRN IV 03/26/25 08:30 Oxycodone/ Acetaminophen 2 tab Q6HP PRN PO 03/26/25 12:00 Albuterol 2.5 mg Q4HPRN PRN NEB 03/26/25 12:00 Ipratropium [place] 0.5 mg Q4HPRN PRN NEB 03/26/25 12:00 Meropenem 50 ml @ 17 mls/hr Q8HR IV 03/26/25 14:00 UNV Vancomycin HCl 0 ml @ 0 mls/hr UD IV 03/26/25 13:15 UNV Laboratory Results Laboratory Tests 03/26/25 06:15 Chemistry Test 03/26/25 06:15 Albumin 3.1 g/dL (3.2-4.8) L Calcium Level 7.9 mg/dL (8.7-10.4) L Total Protein 5.2 g/dL (5.7-8.2) L Coagulation Test 03/26/25 06:15 Prothrombin Time 15.6 sec (9.3-11.8) H Prothrombin Time INR 1.54 (0.9-1.15) H Activated Partial Thromboplast Time 26.7 SEC (24.5-34.5) Cardiac Markers Test 03/26/25 06:15 B-Type Natriuretic Peptide 76.04 pg/mL (0-100) LFT Test 03/26/25 06:15 Alanine Aminotransferase (ALT) 60 U/L (7-40) H Alkaline Phosphatase 877 U/L (46-116) H Aspartate Amino Transferase (AST) 157 U/L (13-40) H Total Bilirubin 4.1 mg/dL (0.2-1.0) H Urinalysis Test 03/25/25 12:00 Urine Color Yellow (Yellow) Urine Clarity Turbid (Clear) H Urine pH 5.5 (5.0-9.0) Urine Specific [place] 1.023 (1.001-1.035) Urine Protein Negative (Negative) Urine Ketones Negative (Negative) Urine Blood Negative /uL (Negative) Urine Nitrite Negative (Negative) Urine Bilirubin Negative (Negative) Urine Urobilinogen 6 mg/dL (Negative) Urine Leukocyte Esterase 1+ /uL (Negative) Urine RBC 1 /hpf (0 - 3) Urine Microscopic WBC 7 /HPF (0-3) H Urine Squamous Epithelial Cells Few /hpf (<5) Urine Bacteria None seen /hpf (None Seen) Urine Mucus Few (None Seen) Urine Glucose Normal mg/dL (Normal) Microbiology Microbiology Date/Time Source Procedure Growth Status 03/25/25 13:08 Blood Blood Culture - Preliminary NO GROWTH AFTER 24 HOURS OF INCUBATION. Resulted Labs and/or images reviewed: Labs reviewed by me, Image(s) reviewed by me Assessment/Plan Assessment/Plan Impression: -sepsis -gastric adenocarcinoma with probable metastasis -elevated LFTs, probable cirrhosis versus metastatic disease -rule out bone metastasis -acute kidney injury -anemia, rule out GI bleed -thrombocytopenia -acute hypoxic respiratory failure -community-acquired pneumonia, probable Gram-positive/Gram-negative etiology Plan: Events: Patient with worsening generalized weakness. Also reports some dyspnea. Chest x-ray with bilateral opacities. BNP checked, within normal limits. Worsening anemia. -pulmonary consultation -broaden antibiotic therapy to Meropenem and vancomycin -PRBC transfusion -stool for occult blood -CT scan and abdominal ultrasound reviewed -three-phase bone scan: Pending -blood and urine culture -pain management: Add morphine and Percocet -repeat labs in a.m. Total time spent with patient and family regarding advance care plannin minutes. Total time spent with patient discussing and formulating plan of care: 35 minutes. This medical document was created using an electronic medical record system with [employer] dictation system. Although this document has been carefully reviewed, there may still be some phonetic and typographical errors. These areas are purely typographical due to imperfections of the software programs, and do not reflect any compromise in the patient's medical care. Plan discussed with: Patient, Other (RN) My Orders Orders - CORINE ASKEW NP Procedure Category Date Status Time Pantoprazole PHA 03/26/25 In Process (Protonix) 10:00 Hemoglobin & LAB 03/26/25 Logged Hematocrit 15:00 Morphine Sulfate PHA 03/26/25 In Process Injection 08:30 Complete Blood Count LAB 03/27/25 Verified 04:00 Comprehensive LAB 03/27/25 Verified Metabolic Panel 04:00 *Dr. [facility] CONS 03/26/25 Transmitted -[place] 09:28 B-Type Natriuretic LAB 03/26/25 Logged Peptide 11:48 Echo 2d Mode Cardiac US 03/26/25 Logged DOP 11:48 Oxycodone W/ Acet PHA 03/26/25 In Process 5/325mg Tab (Percocet 12:00 Albuterol Medneb PHA 03/26/25 In Process (Ventolin Medneb) 12:00 Ipratropium Medneb PHA 03/26/25 In Process (Atrovent Medneb) 12:00 Meropenem 1gm Ivpb PHA 03/26/25 Logged (Merrem 1gm/50ml) 14:00 Vancomycin Per PHA 03/26/25 Logged Pharmacy 13:15 Mechanical Soft Diet DIET 03/26/25 Verified Dinner Date of Service: Mar 26, 2025 Billing Provider: CORINE ASKEW NP Common Visit Codes: [id number] INP/OBS CARE(HIGH) Secondary Visit Codes: [id number] CARE PLAN 30 MINUTES CORINE ASKEW NP Mar 26, 2025 13:45
--- NOTE | 2025-03-26 13:47 | DVHPN2 ---
Subjective Patient is still complaining of pain Complaining of dizziness Difficulty breathing Patient is being transfused RBCs No bowel movement since Monday Reviewed: Care Plan, H&P, Labs, Medications, Previous Orders Changes from previous H/P or p: No Changes Objective Vitals Vital Signs Date Time Temp Pulse Resp B/P (MAP) Pulse Ox O2 Delivery O2 Flow Rate FiO2 03/26/25 13:00 97.4 105 18 105/69 (81) 91 97.4 03/25/25 20:00 Nasal Cannula* 2 28 Intake/Output Intake and Output 03/26/25 07:00 Intake Total 740 ml Output Total 1580 ml Balance -840 ml Intake Oral 740 ml Output Urine Total 1580 ml Exam General: NAD, AAOX3 Chest: lung deluna clear to auscultation Heart: RRR, no murmur Abdomen: non-distended, no tenderness to palpation, +BS General Appearance: Alert, Oriented X3, Cooperative Lungs: Clear to auscultation, Normal air movement Cardiovascular: Normal S1, Normal S2 Abdomen: Normal bowel sounds, Soft, No tenderness, No hepatospenomegaly, No masses Medications Current Medications Medications Dose Ordered Sig/Leonela Route Start Time Stop Time Status Last Admin Dose Admin Metoprolol Tartrate 25 mg BID PO 03/24/25 22:00 03/26/25 10:30 25 MG Sodium Chloride 10 ml Q8HR IV 03/24/25 22:00 03/26/25 05:18 10 ML Ondansetron HCl 4 mg Q4HP PRN IV 03/24/25 14:30 Docusate Sodium 100 mg BIDPRN PRN PO 03/24/25 14:30 Nitroglycerin 0.4 mg Q5MINP PRN SL 03/24/25 16:45 Morphine Sulfate 2 mg Q30M PRN IV 03/24/25 16:45 Methylprednisolone Sodium Succinate 40 mg BID@0600,1800 IV 03/25/25 06:00 03/26/25 05:18 40 MG Tamsulosin HCl 0.4 mg QPM PO 03/24/25 18:00 03/25/25 17:04 0.4 MG Pantoprazole Sodium 40 mg BID IV 03/26/25 10:00 03/26/25 10:29 40 MG Morphine Sulfate 2 mg Q3HPRN PRN IV 03/26/25 08:30 Oxycodone/ Acetaminophen 2 tab Q6HP PRN PO 03/26/25 12:00 Albuterol 2.5 mg Q4HPRN PRN NEB 03/26/25 12:00 Ipratropium [place] 0.5 mg Q4HPRN PRN NEB 03/26/25 12:00 Meropenem 50 ml @ 17 mls/hr Q8HR IV 03/26/25 14:00 UNV Vancomycin HCl 0 ml @ 0 mls/hr UD IV 03/26/25 13:15 UNV Laboratory Results Laboratory Tests 03/26/25 06:15 Chemistry Test 03/26/25 06:15 Albumin 3.1 g/dL (3.2-4.8) L Calcium Level 7.9 mg/dL (8.7-10.4) L Total Protein 5.2 g/dL (5.7-8.2) L Coagulation Test 03/26/25 06:15 Prothrombin Time 15.6 sec (9.3-11.8) H Prothrombin Time INR 1.54 (0.9-1.15) H Activated Partial Thromboplast Time 26.7 SEC (24.5-34.5) Cardiac Markers Test 03/26/25 06:15 B-Type Natriuretic Peptide 76.04 pg/mL (0-100) LFT Test 03/26/25 06:15 Alanine Aminotransferase (ALT) 60 U/L (7-40) H Alkaline Phosphatase 877 U/L (46-116) H Aspartate Amino Transferase (AST) 157 U/L (13-40) H Total Bilirubin 4.1 mg/dL (0.2-1.0) H Urinalysis Test 03/25/25 12:00 Urine Color Yellow (Yellow) Urine Clarity Turbid (Clear) H Urine pH 5.5 (5.0-9.0) Urine Specific [place] 1.023 (1.001-1.035) Urine Protein Negative (Negative) Urine Ketones Negative (Negative) Urine Blood Negative /uL (Negative) Urine Nitrite Negative (Negative) Urine Bilirubin Negative (Negative) Urine Urobilinogen 6 mg/dL (Negative) Urine Leukocyte Esterase 1+ /uL (Negative) Urine RBC 1 /hpf (0 - 3) Urine Microscopic WBC 7 /HPF (0-3) H Urine Squamous Epithelial Cells Few /hpf (<5) Urine Bacteria None seen /hpf (None Seen) Urine Mucus Few (None Seen) Urine Glucose Normal mg/dL (Normal) Microbiology Microbiology Date/Time Source Procedure Growth Status 03/25/25 13:08 Blood Blood Culture - Preliminary NO GROWTH AFTER 24 HOURS OF INCUBATION. 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 Sandoval patient is transfusing RBCs recheck H and H Protonix and Zofran MiraLax We will continue to monitor patient Stool for occult blood Possible EGD to be considered if any GI bleed Plan discussed with: Patient, Other (RN) Date of Service: Mar 26, 2025 Billing Provider: MARLYS HAN Common Visit Codes: [id number] INP/OBS CARE(HIGH) MARLYS HAN Mar 26, 2025 13:47
[2025-03-26] MEDS: IPRATROPIUM BROM 0.5 MG/2.5ML INH SOL NEB PRN (14:31)
[2025-03-26] MEDS: ALBUTEROL SULF 2.5 MG/0.5ML(0.5%) NEB SOLN NEB PRN (14:31)
[2025-03-26 15:20] LABS: Hemoglobin 8.3 g/dL (13.5-17.5)
[2025-03-26 15:22] LABS: Hematocrit 24.4 % (41.0-53.0)
[2025-03-26 15:36] LABS: Total Iron Binding Capacity 255.0 ug/dL (250-425)
[2025-03-26 15:39] LABS: Iron 229.0 ug/dL (65-175)
[2025-03-26] MEDS: POLYETHYLENE GLYCOL 17 GM PWDR PO ONE (16:05)
[2025-03-26] MEDS: VANCOMYCIN 1.25GM/250ML 250 ML IV ONE (16:05)
[2025-03-26] MEDS: MEROPENEM 1GM IVPB 50 ML IV ONE (16:05)
--- NOTE | 2025-03-26 16:38 | DVHCONRES ---
Date Seen: Mar 26, 2025 Resident Creating Document: KITTY SANTOS RESIDENT Referring Physician GLENYS Bagley Reason for Consultation Worsening YRIS with azotemia History of Present Illness This is a 70-year-old male with past medical history of AFib, gastric adenocarcinoma status post partial gastrectomy with ongoing chemotherapy and immunotherapy, hyperlipidemia, CKD, hypertension, to the ED with a complaint of weakness and generalized body pain for the past 3 weeks prior to this visit. Ongoing immunotherapy since November with Opdivo and has about four treatments done so far. He is also complaining of poor appetite, abdominal discomfort, nausea, vomiting constipation. denies fever, chills, hematemesis, melena or any altered bowel habit. Patient was seen and examined on the bedside. He is alert oriented x3 and on nasal cannula 2 L. Mentioned generalized weakness and body pain. Past Medical History AFib, gastric adenocarcinoma, hyperlipidemia, CKD, hypertension Past Surgical History status post partial gastrectomy Family History: Alzheimer's disease G8 MOTHER High cholesterol G8 FATHER Allergies: Coded Allergies: No Known Drug Allergy (Verified Allergy, Mild, 04/19/10) Home Meds Active Scripts Pantoprazole Sodium Sesquihydr (Pantoprazole Sodium) 40 Mg Tab, 40 MG PO BID for 30 Days, #60 TAB Prov:MAGEN KISER RESIDENT 02/28/24 Reported Medications Oxycodone W/ Acetaminophen (Oxycodone/Acetaminophen 10-300 mg) 1 Tab Tab, 1 TAB PO QID PRN for PAIN SCALE 7 THRU 10 03/24/25 Escitalopram Oxalate (ESCITALOPRAM OXALATE) 10 Mg Tab, 1 TAB PO DAILY 03/24/25 Buprenorphine (Buprenorphine) 20 Mcg/Hr Dis, 1 PATCH TOP QWEEKLY 03/24/25 Baclofen (Baclofen) 10 Mg Tab, 1 TAB PO Q12HP PRN for MUSCLE SPASM 03/24/25 Metoprolol Succinate (Metoprolol Succinate Er) 25 Mg Tab, 25 MG PO DAILY for 30 Days, MG 02/27/24 Fenofibrate (Tricor) Unknown Strength Tab, 145 MG PO DAILY, TAB 03/20/21 Tamsulosin Hcl (Flomax) 0.4 Mg Cap, 1 CAP PO DAILY, #30 CAP 11 Refills 03/20/21 Zolpidem Tartrate (Ambien) Unknown Strength Tab, 5 MG PO HS, #30 TAB 5 Refills 03/20/21 Viuaxyiyyg-Jpbvyrdfrwuha-Nyias (FIORICET) Unknown Strength Cap, PO DAILY PRN for HEADACHE, CAP 03/20/21 Finasteride (Finasteride) Unknown Strength Tab, 5 MG PO DAILY for 30 Days, MG 03/20/21 Chlorthalidone (Chlorthalidone) Unknown Strength Tab, 25 MG PO DAILY, TAB 03/20/21 Atorvastatin Calcium (Lipitor) 20 Mg Tab, 20 MG PO HS 04/14/10 Current Medications Current Medications Medications (Trade) Dose Ordered Sig/Leonela Route PRN Reason Start Time Stop Time Status Last Admin Pantoprazole Sodium (Protonix) 40 mg BID IV 03/26/25 10:00 03/26/25 10:29 Oxycodone/ Acetaminophen (Percocet 5/ 325MG Tablet) 1 tab Q4HP PRN PO MODERATE PAIN (4-6 PAIN SCALE) 03/26/25 08:30 03/26/25 11:51 DC 03/26/25 10:30 Morphine Sulfate 2 mg Q3HPRN PRN IV SEVERE PAIN (7-10 PAIN SCALE) 03/26/25 08:30 Oxycodone/ Acetaminophen (Percocet 5/ 325MG Tablet) 2 tab Q6HP PRN PO MODERATE PAIN (4-6 PAIN SCALE) 03/26/25 12:00 03/26/25 16:07 Albuterol (Ventolin Medneb) 2.5 mg Q4HPRN PRN NEB SHORTNESS OF BREATH 03/26/25 12:00 03/26/25 14:31 Ipratropium [place] (Atrovent Medneb) 0.5 mg Q4HPRN PRN NEB SHORTNESS OF BREATH 03/26/25 12:00 03/26/25 14:31 Meropenem 50 ml @ 17 mls/hr Q12HR IV 03/26/25 22:00 Vancomycin HCl 0 ml @ 0 mls/hr UD IV 03/26/25 13:15 Review of Systems Constitutional: Weakness, Malaise No: Fever, Chills, Sweats, Other Eyes: No: Pain, Vision change, Conjunctivae inflammation, Eyelid inflammation, Other, Redness ENT: No: Ear pain, Ear discharge, Nose pain, Nose discharge, Nose congestion, Mouth pain, Mouth swelling, Throat pain, Throat swelling, Other Respiratory: Shortness of breath, improving No: Cough, Dry,Wheezing, Hemoptysis, Pleuritic Pain, Sputum, Wheezing, Other Cardiovascular: No: Chest Pain, Palpitations, Orthopnea, Paroxysmal Noc. Dyspnea, Edema, Lt Headedness, Other Gastrointestinal: Nausea, Vomiting, Abdominal Pain, Constipation, No Diarrhea, Melena, Hematochezia, Other Musculoskeletal: No: other, neck pain, shoulder pain, arm pain, back pain, hand pain, leg pain, foot pain Neurological:; No: Weakness, Numbness, Incoordination, Change in speech, Conf usion, Seizures Vital Signs Vital Signs Date Time Temp Pulse Resp B/P (MAP) Pulse Ox O2 Delivery O2 Flow Rate FiO2 03/26/25 14:39 108 20 98 03/26/25 14:31 Room Air 0.0 03/26/25 14:31 21 03/26/25 14:31 97.4 104/75 97.4 Physical Exam Physical examination: General Appearance: Alert, Oriented X3, Cooperative, mild resp distress with nasal cannula 2 L HEENT: Atraumatic, PERRLA, EOMI, Mucous membrane moist/pink Respiratory: Clear to auscultation, Normal air movement Cardiovascular: Regular rate, Normal S1, Normal S2, No murmurs, no chest wall tenderness Abdominal: Normal bowel sounds, Soft, distended and flanks are full, No tenderness, No hepatospenomegaly, No masses Extremities: No clubbing, No cyanosis, No edema, Normal pulses, No tenderness/swelling Skin: No rashes, No breakdown, No significant lesion Neuro: Normal speech, Strength at 5/5 X4 ext, Normal tone, Sensation intact, Cranial nerves 3-12 NL, Reflexes 2+ Psych/Mental Status: Mental status NL, Mood NL Labs/Diagnostic Data Labs Test 03/26/25 15:04 03/26/25 06:15 03/25/25 12:00 03/25/25 03:31 Range/Units Hemoglobin 8.3 #L 13.5-17.5 g/dL Hematocrit 24.4 #L 41.0-53.0 % Iron Level 229 H 65-175 ug/dL Total Iron Binding Capacity 255 250-425 ug/dL Percent Iron Saturation 89.8 H 20-55 % Ferritin 2541.6 H 22-322 ng/mL B-Type Natriuretic Peptide 116.92 0-100 pg/mL White Blood Count 15.7 H 4.4-10.8 10^3/uL Red Blood Count 1.90 L 4.5-5.90 10^6/uL Mean Corpuscular Volume 98.0 80.0-100.0 fL Mean Corpuscular Hemoglobin 33.4 H 28.0-32.0 pg Mean Corpuscular Hemoglobin Concent 34.1 32.0-36.0 g/dL Red Cell Distribution Width 27.8 H 11.8-14.3 % Platelet Count 59 L 140-450 10^3/uL Mean Platelet Volume 9.0 6.9-10.8 fL Neutrophils (%) (Auto) 37.0-80.0 % Lymphocytes (%) (Auto) 10.0-50.0 % Monocytes (%) (Auto) 0.0-12.0 % Basophils (%) (Auto) 0.0-2.0 % Neutrophils # (Auto) 1.6-8.6 10 ^3/uL Lymphocytes # (Auto) 0.4-5.4 10 ^3/uL Monocytes # (Auto) 0-1.3 10 ^3/uL Differential Total Cells Counted 100.0 100 Neutrophils % (Manual) 86 H 37.0-80.0 Band Neutrophils % (Manual) 1 Lymphocytes % (Manual) 8 L 10.0-50.0 Monocytes % (Manual) 1 0-12 Eosinophils % (Manual) 0 0-7 Basophils % (Manual) 0 0.0-2.0 Metamyelocytes % (manual) 0 Myelocytes % (Manual) 0 Promyelocytes % (Manual) 0 Blast Cells % (Manual) 0 Nucleated Red Blood Cells 20.0 % Reactive Lymphocytes 4 Smudge Cells 6 /100 WBC Platelet Estimate Decreased Large Platelets Few Giant Platelets Few Polychromasia Moderate Anisocytosis (manual) Moderate Schistocytes Moderate Prothrombin Time 15.6 H 9.3-11.8 sec Prothrombin Time INR 1.54 H 0.9-1.15 Activated Partial Thromboplast Time 26.7 24.5-34.5 SEC Sodium Level 136 136-145 mmol/L Potassium Level 3.5 3.5-5.1 mmol/L Chloride Level 100 98-107 mmol/L Carbon Dioxide Level 21 20-31 mmol/L Anion Gap 15 5-15 Blood Urea Nitrogen 85 #*H 9-23 mg/dL Creatinine 1.54 H 0.700-1.30 mg/dL Glomerular Filtration Rate Calc 48 >90 mL/min BUN/Creatinine Ratio 55.2 H 10.0-20.0 Serum Glucose 137 H 74-106 mg/dL Calcium Level 7.9 L 8.7-10.4 mg/dL Total Bilirubin 4.1 H 0.2-1.0 mg/dL Aspartate Amino Transferase (AST) 157 H 13-40 U/L Alanine Aminotransferase (ALT) 60 H 7-40 U/L Alkaline Phosphatase 877 H 46-116 U/L Total Protein 5.2 L 5.7-8.2 g/dL Albumin 3.1 L 3.2-4.8 g/dL Urine Color Yellow Yellow Urine Clarity Turbid H Clear Urine pH 5.5 5.0-9.0 Urine Specific [place] 1.023 1.001-1.035 Urine Protein Negative Negative Urine Ketones Negative Negative Urine Blood Negative Negative /uL Urine Nitrite Negative Negative Urine Bilirubin Negative Negative Urine Urobilinogen 6 Negative mg/dL Urine Leukocyte Esterase 1+ Negative /uL Urine RBC 1 0 - 3 /hpf Urine Microscopic WBC 7 H 0-3 /HPF Urine Squamous Epithelial Cells Few <5 /hpf Urine Bacteria None seen None Seen /hpf Urine Mucus Few None Seen Urine Glucose Normal Normal mg/dL Acetaminophen Level 5.0 L 10.0-20.0 UG/ML Test 03/24/25 14:55 03/24/25 12:55 Range/Units Lactic Acid Level 1.9 0.4-2.0 mmol/L Ammonia 23 11-32 umol/L Hemoglobin A1c 4.1 <5.7 % A1C Lipase 87 H 12-53 U/L Microbiology Date/Time Source Procedure Growth Status 03/25/25 13:22 Blood Blood Culture - Preliminary NO GROWTH AFTER 24 HOURS OF INCUBATION. Resulted 03/25/25 12:00 Voided Urine Urine Culture - Preliminary Resulted Assessment Assessment and plan: # YRIS superimposed on CKD in the setting of sepsis likely secondary to prerenal, hemodynamically mediated # Non-obstructing bilateral renal calculus # Acute on chronic anemia secondary to possible GI bleeding # Elevated BUN secondary to possible GI bleeding # Acute hypoxic respiratory failure secondary to community-acquired Gram- positive / Gram-negative pneumonia # sepsis due to above # Hyperbilirubinemia, transaminitis and coagulopathy likely secondary to metastasis from gastric adenocarcinoma Plan: - ultrasound of W/A demonstrated no hydronephrosis or sonographic evidence of nephrolithiasis - ordered urine sodium, creatinine, protein/ creatinine ratio to calculate FENA - IV normal saline at 75 mL/hours - Monitor H&H, transfuse if hemoglobin less than 7 - GI on board - continue IV antibiotic and other management as per primary - strict I&O - avoid nephrotoxic medication - monitor BMP Thank you so much for the opportunity to consult on your patient. Nephro team will follow the patient. In case of any questions or concerns please feel free to reach out. Plan discussed with Dr. Torres . The patient and caregiver team agreed to the plan. Addendum Patient seen and examined, plan discussed with resident. Agree with above, we will follow closely Plan discussed with: Patient, Spouse, Other (RN) KITTY SANTOS RESIDENT Mar 26, 2025 16:38 SHASHI TORRES MD Mar 26, 2025 17:53
[2025-03-26] MEDS: ALBUTEROL SULF 2.5 MG/0.5ML(0.5%) NEB SOLN NEB ONE (16:52)
[2025-03-26] MEDS: IPRATROPIUM BROM 0.5 MG/2.5ML INH SOL NEB ONE (16:52)
--- NOTE | 2025-03-26 17:45 | DVHNC2 ---
Procedure - Thoracentesis Procedure Note under ultrasound guidance INDICATION: Right sided pleural effusion PHYSICIAN: Edith Hillman MD ASST: MAYURI Castillo CONSENT: Consent was obtained from patient/patient's HCP prior to the procedure. Indications, risks, and benefits were explained at length. Time out time: Risks and benefits of the procedure and sedation options and risks were discussed with the patient/patient's HCP. All questions were answered and informed consent was obtained. Patient identification and proposed procedure were verified prior to the procedure by the physician, and the nurse in the patient's room. PROCEDURE SUMMARY: A time out was performed and the chest x-ray was reviewed, the appropriate side was confirmed and marked. My hands were washed immediately prior to the procedure. I wore a surgical cap, mask with protective eyewear, sterile gown and sterile gloves throughout the procedure. The patient was prepped and draped in a sterile manner using chlorhexidine scrub after the appropriate level was percussed and confirmed by ultrasound. 1% lidocaine was used to anesthesize the skin, subcutaneous tissue, superior aspect of the rib periosteum and parietal pleura. A finder needle was then introduced over the superior aspect of the rib to locate the pleural fluid; yellow-straw colored fluid was aspirated at a depth of approximately 2 cm. A 10-blade scalpel was used to anusha the skin at the insertion site. Under real-time ultrasound guidance, the 5 [place] Yueh Thora-Centesis needle was then introduced through the skin incision into the pleural space using negative aspiration pressure. The thoracentesis catheter was then threaded without difficulty. 1300 mL anne marie fluid was removed without difficulty. The catheter was then removed. No immediate complications were noted during the procedure. Using the linear probe, lung sliding was noted anteriorly and posteriorly and are an indication of no pneumothorax. A post-procedure chest x-ray is pending at the time of this note. The fluid will be sent for studies cell count and differential, fluid LDH, glucose, albumin and total protein, gram stain and culture, and cytology. Estimated blood loss is less than 5 mL. CPT: 34452 Visit Coding Pulmonary Billing Provider: KEELY HILLMAN MD Date of Service if different f: Mar 26, 2025 Common Visit Codes: PROCEDURE ONLY Procedure Codes: [id number] W/PUNCT (47458 RIGHT THORACENTESIS) KEELY HILLMAN MD Mar 26, 2025 17:45
[2025-03-26] MEDS: ENSURE CLEAR Mixed Berry 8oz Carton PO SCH (18:00)
[2025-03-26] MEDS: FUROSEMIDE 40 MG/4 ML VIAL IV ONE ×2 (18:00→21:01)
--- NOTE | 2025-03-26 18:13 | DVH ---
CHEST RADIOGRAPH Indication: S/P RIGHT THORACENTESIS R/O PTX Technique: XY CHEST XRAY 1 VIEW COMPARISON: None FINDINGS: Right IJ casa catheter tip projects over the SVC. The cardiac silhouette is enlarged. The lungs demonstrate bilateral patchy airspace opacities. The pu lmonary vasculature is prominent. Small bilateral pleural effusions. There is no pneumothorax. Old ri ght mid clavicular fracture deformity. IMPRESSION: As above
[2025-03-26] MEDS: SODIUM CHLORIDE 0.9% 500 ML IV ONE (18:15)
[2025-03-26] MEDS: ALBUMIN 25% 100 ML IV ONE (18:37)
[2025-03-26 18:40] LABS: Hemoglobin 7.6 g/dL (13.5-17.5)
[2025-03-26 18:41] LABS: Hematocrit 23.3 % (41.0-53.0); Mean Corpuscular Hemoglobin 32.7 pg (28.0-32.0); Mean Corpuscular Volume 100.7 fL (80.0-100.0)
[2025-03-26 18:48] LABS: Anion Gap 19 (5-15); Chloride 100 mmol/L (98-107); Magnesium 2.5 mg/dL (1.6-2.6)
[2025-03-26 18:56] LABS: BUN/Creatinine Ratio 49.4 (10.0-20.0)
[2025-03-26 19:02] LABS: Alanine Aminotransferase 69 U/L (7-40); Albumin 3.2 g/dL (3.2-4.8); Alkaline Phosphatase 912 U/L (46-116); Bilirubin, Total 5.0 mg/dL (0.2-1.0); Calcium 8.4 mg/dL (8.7-10.4); Carbon Dioxide 15 mmol/L (20-31); Glucose 164 mg/dL (74-106); Potassium 4.6 mmol/L (3.5-5.1); Sodium 134 mmol/L (136-145); Total Protein 5.5 g/dL (5.7-8.2)
[2025-03-26 19:05] LABS: Blood Urea Nitrogen 87 mg/dL (9-23); Lactic Acid w/Reflex 9.1 mmol/L (0.4-2.0)
--- NOTE | 2025-03-26 19:29 | RESUS ---
CODE ASSIST ASSESSSMENT Initial Information Code Assist Date: Mar 26, 2025 Code Assist Time: 18:05 Location of Arrest: [place] Room # 291-B Provider Name Dr. Leija Time Notified: 18:05 Time PMD returned call: 18:07 Crash Cart Opened and Supplies: No Situation Staff concerned/worried, speci: Non-responsive, SBP <90 or 10 from baseli Situation comment: Per primary nurse Booker RN, patient had thoracentesis done by Dr. Hillman. Approximately 1300 ml removed. Patient got up to use restroom via bedside commode right after procedure, then suddenly became unresponsive. Syncope. Patient was breathing with palpable pulses. Background Background: Hx: ESRD, Gastric CA, HTN, AFIB Assessment Blood Pressure Systolic: 98 (1805) Blood Pressure Diastolic: 51 Respiratory Rate: 14 O2 Sat by Pulse Oximetry: 94 Bedside Blood Glucose: 146 Assessment comment: 1810: BP 85/57, HR 67 1812: BP 87/62, HR 61, O2SAT 91% 6L NC 1818: BP 70/52, HR 106, 97%, TEMP 96.4 (A) 1823: BP 83/55, HR 90 1825: BP 87/57, HR 113, 97% 1830: BP 86/59, HR 113, 91%, TEMP 96.3 (A) Recommendations/Interventions Procedures: Accu check, CMP, CBC, O2 Mask/NC Other Interventions Lactic acid, Magnesium, phosphate, 0.9% NS 500 ml bolus x1, 1 unit PRBC, and Albumin (see order list). Outcome Outcome: Transfer to Stepdown (244-6) Follow up Report Follow up Report Patient blood pressure not improving with position change and/or fluid bolus. Upgraded to UBALDO for further observation and treatment. Team Members Team Members Dr. Hillman, Dr. Leija, Cassie Flowers RN, Booker RN, Angeles RN, Carla RN, Francisco RN, Kady Garcia RN Mar 26, 2025 19:29
[2025-03-26 20:27] LABS: Total Cells Counted 100.0 (100)
[2025-03-26 20:28] LABS: Anisocytosis Moderate; Macrocytosis Moderate
[2025-03-26 20:29] LABS: Nucleated Red Blood Cells % 26.0 %
[2025-03-26] MEDS: PANTOPRAZOLE 40 MG/10 ML VIAL INJ IV ONE (21:02)
[2025-03-26] MEDS: MEROPENEM 1GM IVPB 50 ML IV SCH (21:02)
[2025-03-26] MEDS ORDERED: SODIUM CHLORIDE 0.9% 500 ML IV ONE (22:15)
--- NOTE | 2025-03-26 22:53 | DVHPN2 ---
Subjective [facility] DOS: 03/26/2025 Patient seen and examined at bedside. Remains on supplemental oxygen Overnight events reviewed. Reviewed: Care Plan, H&P, Labs, Medications, Previous Orders Changes from previous H/P or p: No Changes Objective Vitals Vital Signs Date Time Temp Pulse Resp B/P (MAP) Pulse Ox O2 Delivery O2 Flow Rate FiO2 03/26/25 21:01 95/68 03/26/25 21:01 113 03/26/25 17:00 30 98 03/26/25 17:00 97.5 97.5 03/26/25 16:52 Nasal Cannula* 5 40 Intake/Output Intake and Output 03/26/25 07:00 Intake Total 740 ml Output Total 1580 ml Balance -840 ml Intake Oral 740 ml Output Urine Total 1580 ml General Appearance: Alert, Oriented X3, Cooperative, No acute distress HEENT: Atraumatic, PERRLA, EOMI Lungs: Clear to auscultation, Other (Decreased air entry bilaterally) Cardiovascular: Regular rate, Normal S1, Normal S2 Abdomen: Normal bowel sounds, Soft, No tenderness, No hepatospenomegaly, No masses Musculoskeletal: Normal sensory function, Normal motor function Extremities: No clubbing, No cyanosis, No edema Neuro: Normal gait, Normal speech, Strength at 5/5 X4 ext, Cranial nerves 3-12 NL Skin: No Bruising, No Significant Lesion, No Cyanosis; Dry, Intact; No Petechiae, No Rashes; Warm; No Wounds Psych/Mental Status: Mental status NL, Mood NL Medications Current Medications Medications Dose Ordered Sig/Leonela Route Start Time Stop Time Status Last Admin Dose Admin Metoprolol Tartrate 25 mg BID PO 03/24/25 22:00 03/26/25 21:01 25 MG Sodium Chloride 10 ml Q8HR IV 03/24/25 22:00 03/26/25 21:11 10 ML Ondansetron HCl 4 mg Q4HP PRN IV 03/24/25 14:30 Docusate Sodium 100 mg BIDPRN PRN PO 03/24/25 14:30 Nitroglycerin 0.4 mg Q5MINP PRN SL 03/24/25 16:45 Morphine Sulfate 2 mg Q30M PRN IV 03/24/25 16:45 Methylprednisolone Sodium Succinate 40 mg BID@0600,1800 IV 03/25/25 06:00 03/26/25 18:36 40 MG Tamsulosin HCl 0.4 mg QPM PO 03/24/25 18:00 03/25/25 17:04 0.4 MG Pantoprazole Sodium 40 mg BID IV 03/26/25 10:00 03/26/25 10:29 40 MG Morphine Sulfate 2 mg Q3HPRN PRN IV 03/26/25 08:30 Oxycodone/ Acetaminophen 2 tab Q6HP PRN PO 03/26/25 12:00 03/26/25 16:07 2 TAB Albuterol 2.5 mg Q4HPRN PRN NEB 03/26/25 12:00 03/26/25 16:52 2.5 MG Ipratropium [place] 0.5 mg Q4HPRN PRN NEB 03/26/25 12:00 03/26/25 16:52 0.5 MG Meropenem 50 ml @ 17 mls/hr Q12HR IV 03/26/25 22:00 03/26/25 21:02 17 MLS/HR Vancomycin HCl 0 ml @ 0 mls/hr UD IV 03/26/25 13:15 Enteral Nutritional Formula 240 ml BIDWM PO 03/26/25 18:00 Furosemide 40 mg DAILY IV 03/27/25 10:00 Albuterol 2.5 mg Q6HR NEB 03/27/25 00:00 Ipratropium [place] 0.5 mg Q6HR NEB 03/27/25 00:00 Laboratory Results Laboratory Tests 03/26/25 18:15 Chemistry Test 03/26/25 06:15 03/26/25 18:15 Albumin 3.1 g/dL (3.2-4.8) L 3.2 g/dL (3.2-4.8) Calcium Level 7.9 mg/dL (8.7-10.4) L 8.4 mg/dL (8.7-10.4) L Total Protein 5.2 g/dL (5.7-8.2) L 5.5 g/dL (5.7-8.2) L Magnesium Level 2.5 mg/dL (1.6-2.6) Phosphorus Level 6.1 mg/dL (2.4-5.1) H Coagulation Test 03/26/25 06:15 Prothrombin Time 15.6 sec (9.3-11.8) H Prothrombin Time INR 1.54 (0.9-1.15) H Activated Partial Thromboplast Time 26.7 SEC (24.5-34.5) Cardiac Markers Test 03/26/25 06:15 03/26/25 15:04 B-Type Natriuretic Peptide 76.04 pg/mL (0-100) 116.92 pg/mL (0-100) LFT Test 03/26/25 06:15 03/26/25 18:15 Alanine Aminotransferase (ALT) 60 U/L (7-40) H 69 U/L (7-40) H Alkaline Phosphatase 877 U/L (46-116) H 912 U/L (46-116) H Aspartate Amino Transferase (AST) 157 U/L (13-40) H 231 U/L (13-40) H Total Bilirubin 4.1 mg/dL (0.2-1.0) H 5.0 mg/dL (0.2-1.0) H Urinalysis Test 03/25/25 12:00 Urine Color Yellow (Yellow) Urine Clarity Turbid (Clear) H Urine pH 5.5 (5.0-9.0) Urine Specific [place] 1.023 (1.001-1.035) Urine Protein Negative (Negative) Urine Ketones Negative (Negative) Urine Blood Negative /uL (Negative) Urine Nitrite Negative (Negative) Urine Bilirubin Negative (Negative) Urine Urobilinogen 6 mg/dL (Negative) Urine Leukocyte Esterase 1+ /uL (Negative) Urine RBC 1 /hpf (0 - 3) Urine Microscopic WBC 7 /HPF (0-3) H Urine Squamous Epithelial Cells Few /hpf (<5) Urine Bacteria None seen /hpf (None Seen) Urine Mucus Few (None Seen) Urine Glucose Normal mg/dL (Normal) Microbiology Microbiology Date/Time Source Procedure Growth Status 03/25/25 13:22 Blood Blood Culture - Preliminary NO GROWTH AFTER 24 HOURS OF INCUBATION. Resulted 03/25/25 12:00 Voided Urine Urine Culture - Preliminary Resulted Assessment/Plan Assessment/Plan Impression: Acute hypoxic respiratory failure Dependence on supplemental oxygen Liver cirrhosis Pleural effusion Atelectasis Metastatic disease Sepsis Events: Remains on supplemental oxygen, 2 LPM NC Taper O2 as tolerated Patient received 1 unit PRBC transfusion. Monitor hemoglobin - currently 8.3, 7.6 g/dL Transfuse if less than 7.0 g/dL. Plan for limited chest ultrasound to evaluate if pleural effusion amenable for thoracentesis. Plan for right thoracentesis if amenable for drainage. Patient underwent right thoracentesis w/ 1300 mL anne marie fluid drained from right pleural space. Please see separate procedure note for details. Follow up pleural fluid cultures and cytology Note, rapid response was called at 1800 hours due to shortness of breath and decreased responsiveness. Patient's O2 saturation was noted to be 97% He was noted to be hypotensive with SBP of 88 mmHg. Albumin was ordered. Lasix administered 20 minutes after as chest x-ray notable for pulmonary vascular congestion. 250 mL normal saline IV bolus was given. Discussed with residents at bedside. Continue bronchodilators Continue steroids Continue antibiotics Monitor WBC - 25.2 K Incentive spirometry Protonix for GI ppx Monitor platelets - currently 57 K Diurese with Lasix as tolerated Monitor renal function - monitor BUN and Cr. Monitor electrolytes. Supplement as necessary. Hyponatremia - sodium of 134. Labs and imaging reviewed. Rest of plan as noted below. Plan: Supplemental oxygen Titrate to keep O2 sats above 92%. Continue antibiotics Follow up cultures IV steroids Incentive spirometry d/t atelectasis. Blood pressure control Protonix for GI prophylaxis Diurese as tolerated Monitor renal function. Monitor electrolytes. Supplement as necessary. Monitor ins and outs. Abdomen/pelvis CT on 03/24 revealing moderate bilateral pleural effusions, large on the right; associated atelectasis of the lower lobes; nonobstructing bilateral nephrolithiasis, moderate prostatic enlargement; diffusely mottled appearance of the visualized bony structures likely due to widespread lytic metastatic lesions, less likely due to metabolic disorder other etiology. Abdominal ultrasound on 03/24 showed echogenic liver which can be seen with hepatic steatosis, cirrhosis. Dilated common bile duct which could be secondary to reservoir effect/ underlying cholecystectomy. Small amount of ascites. Monitor LFTs Follow up GI recommendations Pain control Avoid oversedation Monitor hemoglobin Transfuse if less than 7.0 g/dL. GI/DVT prophylaxis. Prognosis: Poor given patient's multiple co-morbidities. Condition: Critical Rest of plan per hospitalist and other consultants. A total of 35 minutes of critical care time was spent reviewing the patient record, examining the patient, making a diagnostic and therapeutic plan, discussing this plan with the medical personnel, following up on diagnostic studies and following the patient for clinical stability excluding any and all procedures. At least 50% of this time was spent in direct, [id number] contact. Thank you, GLENYS Bagley, for allowing me to participate in this patient's care. Further recommendations will depend on the patient's clinical course. Please do not hesitate to contact me if you have any questions or concerns. This medical document was created using an electronic medical record system with [employer] dictation system. Although these documentations are being carefully reviewed, there may still be some phonetic and typographical changes. The errors are purely typographical, due to imperfection on the software program, and do not reflect any compromise in the patient's medical care. Plan discussed with: Patient, Other (RN Booker) My Orders Orders - KEELY FUENTES MD Procedure Category Date Status Time Body Fluid Culture W/ DOMENICA 03/26/25 In Process GS 17:42 Glucose Body Fluid LAB 03/26/25 In Process 17:42 Protein, Body Fluid LAB 03/26/25 In Process 17:42 Cytology DOMENICA 03/26/25 Transmitted 17:42 Lactate LAB 03/26/25 In Process Dehydrogenase, Fluid 17:42 Chest Xray 1 View XY 03/26/25 Resulted 17:43 Albuterol Medneb PHA 03/27/25 In Process (Ventolin Medneb) 00:00 Ipratropium Medneb PHA 03/27/25 In Process (Atrovent Medneb) 00:00 Visit Coding Pulmonary Billing Provider: KEELY FUENTES MD Date of Service if different f: Mar 26, 2025 Common Visit Codes: [id number] INP/OBS CARE(HIGH), 28527-[id number] CARE 30-74 MIN KEELY FUENTES MD Mar 26, 2025 22:53
[2025-03-26] MEDS ORDERED: FUROSEMIDE 40 MG/4 ML VIAL IV ONE (23:00)
[2025-03-26] MEDS ORDERED: EPINEPHrine HCL 1 MG/10 ML SYRG IV ONE (23:49)
[2025-03-27] MEDS ORDERED: ALBUTEROL SULF 2.5 MG/0.5ML(0.5%) NEB SOLN NEB SCH
[2025-03-27] MEDS ORDERED: IPRATROPIUM BROM 0.5 MG/2.5ML INH SOL NEB SCH
--- NOTE | 2025-03-27 | RESUS ---
CODE BLUE ASSESSSMENT History of Events History of Events: The patient is a 70-year-old male with past medical history of gastric cancer, AFib, chronic renal disease, hyperlipidemia, and hypertension who presented to [facility] ED with complaint of generalized body pain for the past 3 weeks. Patient reports he was diagnosed with gastric adenocarcinoma about 1 year ago, has gotten 80% stomach resection, 6 chemotherapy, 4 immunotherapy at [facility], pending appointment next week with Oncology. Patient was recieving platelets and RN was bedside, speaking with pt and suddenly became unresponsive. Initial Information Date: Mar 27, 2025 Time: 23:30 [place]rest[place] Witnessed: Yes CPR started initial time: 23:30 CPR started by whom: Hospital Staff Last seen well: 5 mins prior Pre-Hospital Care: ACLS Type of arrest: Cardiac, Respiratory, Adult, Witnessed Spontaneous Respirations: No Pulse Present: No Monitoring: ECG Crash Cart Opened and Supplies: Yes Airway Ventilation Breathing at Onset: Assisted Oxygen Delivery Method: Ambu-Bag Time of first Assisted Ventila: 23:31 Artificial Ventilation: Bag/Endo tube Intubation Time: 23:31 Intubation Size: 7.5 cuffed Intubated by: Tesfaye Garner NP Intubation Attempts: 1 Intubated orally: Yes Tube secured at: 25 (cm @ lip) Cricoid pressure done: Yes Confirmation: Auscultation (color change), Exhaled CO2 Suctioning (Oral/Tracheal): Yes Circulation Circulation #1: Time: 23:30 Pulse Rate (adult): 0 Blood Pressure Systolic: 0 Blood Pressure Diastolic: 0 Temperature (Fahrenheit): 97.3 Circulation Comment: CPR Initiated Circulation #2: Time: 23:32 Pulse Rate (adult): 0 Circulation Comment: PEA Circulation #3: Time: 23:34 Pulse Rate (adult): 0 Circulation Comment: PEA Circulation #4: Time: 23:36 Pulse Rate (adult): 145 Circulation Comment: VFIB Circulation #5: Time: 23:38 Pulse Rate (adult): 0 Circulation Comment: PEA Circulation #6: Time: 23:40 Pulse Rate (adult): 0 Circulation Comment: PEA Circulation #7: Time: 23:42 Circulation Comment: PEA Circulation #8: Time: 23:44 Pulse Rate (adult): 0 Circulation Comment: pea Circulation #9: Time: 23:46 Pulse Rate (adult): 0 Circulation Comment: PEA Circulation #10: Time: 23:48 Pulse Rate (adult): 0 Circulation Comment: PEA Circulation #11: Time: 23:50 Pulse Rate (adult): 0 Circulation Comment: PEA-TOD Defibrillation Defbrillation : Time Defibrillator Applied: 23:36 EKG Rhythm: V-Fibrillation Compressions: Manual Time Defibrillator Shocked Pt.: 23:36 Defib. Joules: 120 Pulse Present: Yes EKG Rhythm: V-Fibrillation Procedure - IV Procedure - IV : IV Side: Right IV Location: Wrist IV Placed: RN IV Gauge: 20 Comment placed prior to code Procedure - Intraosseous Time of intraosseous: 23:36 Site of Intraosseous: Tibia karsten-medial Intraosseous inserted by: ER charge Number of attempts for Intraos: 1 Comment: flushes well, blood return present Medications & Response Medications and Responses #1: Medication Time: 23:30 ADULT Medications Given ADULT: Epinephrine 1 mg Route of Administration: IV Heart Rate: 0 EKG Rhythm: PEA Medications and Responses #2: Medication Time: 23:32 ADULT Medications Given ADULT: Sodium Bacarbinate 50 meq, Calcium Chloride 10 mL Route of Administration: IV Heart Rate: 74 EKG Rhythm: PEA Medications and Responses #3: Medication Time: 23:33 ADULT Medications Given ADULT: Epinephrine 1 mg Route of Administration: IV Heart Rate: 0 EKG Rhythm: PEA Medications and Responses #4: Medication Time: 23:36 ADULT Medications Given ADULT: Epinephrine 1 mg, Sodium Bacarbinate 50 meq Route of Administration: IV Heart Rate: 0 Medications and Responses #5: Medication Time: 23:37 ADULT Medications Given ADULT: Amiodarone 300 mg, Calcium Chloride 10 mL Route of Administration: IV Heart Rate: 170 EKG Rhythm: V-Fibrillation EKG Rhythm: PEA Medications and Responses #6: Medication Time: 23:39 ADULT Medications Given ADULT: Epinephrine 1 mg Route of Administration: IV Medications and Responses #7: Medication Time: 23:42 ADULT Medications Given ADULT: Epinephrine 1 mg Route of Administration: IV EKG Rhythm: PEA Medications and Responses #8: Medication Time: 23:45 ADULT Medications Given ADULT: Epinephrine 1 mg Route of Administration: IV Medication Comment: Blood inititaed at this time, Pressure bag applied. EKG Rhythm: PEA Medications and Responses #9: Medication Time: 23:48 ADULT Medications Given ADULT: Epinephrine 1 mg, Sodium Bacarbinate 50 meq Route of Administration: IV EKG Rhythm: PEA Nurses Notes Evelyn Coma Scale Eye Opening: None (1) [place] Coma Scale Verbal: None (1) Evelyn Coma Scale Motor: None (1) Pupil Reaction: Non Reactive Bedside Blood Glucose: 130 EKG Rhythm: Asystole Time Code Ended Time Code Ended: 23:50 Post Arrest Status: Outcome of code: Unsuccessful Patient pronounced by: Pascual [employer] Time patient pronounced: 23:50 Family notified: Yes Attending called: No Code Team Present: Pascual Jimenez, Dr. Duran , Dr. Raman, Corey Thayer ER Charge, Maggie MESSINA MST Charge, Luz MST Charge, Charmaine ICU Charge, Ramya ICU resource, Yaya RN, Francisco Sanchez RN MST Shade Classifier, Merlene Lopez RN H/S Post Resuscitation Neurologica Pupil Size: 5 Comment: fixed, dilated, non reactive MERLENE PENDLETON Mar 27, 2025 00:00
--- NOTE | 2025-03-27 04:38 | DVHNC2 ---
Intubation Indication: Respiratory Insufficiency, Altered Mental Status, Airway Protection Intubation size: cm (7.5) Informed consent obtained: No Risks/benefits/alt described: No UTO Consent Emergent intubation during code blue Notes I wore a surgical cap, mask with protective eyewear, gown and gloves throughout the procedure. The patient was placed on a undercover operator including continuous pulse oximetry. Rapid Sequence Intubation was conducted.. Cricoid pressure was maintained from time induction agent was given to time of cuff balloon inflation. Using a MAC 4 laryngoscope and a size 7.5 endotracheal tube with stylet, the patient was intubated on the 1st attempt. The stylet was removed and cuff balloon was inflated. Appropriate endotracheal tube position was confirmed by direct visualization of vocal cord passage, fogging of the tube, CO2 colormetric indicator and symmetric breath sounds. Date of Service: Mar 26, 2025 Billing Provider: VINNY EDWARDS Common Visit Codes: PROCEDURE ONLY Procedure Codes: [id number], [id number] CODE BLUE VINNY EDWARDS Mar 27, 2025 04:38
--- NOTE | 2025-03-27 08:30 | DVHDS2 ---
Discharge Summary Date of Admission Mar 24, 2025 at 16:35 Date of Discharge: Mar 26, 2025 Admitting Diagnosis Generalized weakness Labs/Diagnostic Data: Laboratory Results Test 03/26/25 23:35 03/26/25 20:58 03/26/25 18:45 03/26/25 18:15 POC Glucose 130 mg/dl (70-106) Lactic Acid Level 6.2 mmol/L (0.4-2.0) Stool Occult Blood Positive (Negative) Stool Occult Blood Sample #3 (Negative) White Blood Count 25.2 10^3/uL (4.4-10.8) Red Blood Count 2.32 10^6/uL (4.5-5.90) Hemoglobin 7.6 g/dL (13.5-17.5) Hematocrit 23.3 % (41.0-53.0) Mean Corpuscular Volume 100.7 fL (80.0-100.0) Mean Corpuscular Hemoglobin 32.7 pg (28.0-32.0) Mean Corpuscular Hemoglobin Concent 32.5 g/dL (32.0-36.0) Red Cell Distribution Width 24.4 % (11.8-14.3) Platelet Count 57 10^3/uL (140-450) Mean Platelet Volume 8.5 fL (6.9-10.8) Neutrophils (%) (Auto) % (37.0-80.0) Lymphocytes (%) (Auto) % (10.0-50.0) Monocytes (%) (Auto) % (0.0-12.0) Basophils (%) (Auto) % (0.0-2.0) Neutrophils # (Auto) 10 ^3/uL (1.6-8.6) Lymphocytes # (Auto) 10 ^3/uL (0.4-5.4) Monocytes # (Auto) 10 ^3/uL (0-1.3) Differential Total Cells Counted 100.0 (100) Neutrophils % (Manual) 71 (37.0-80.0) Band Neutrophils % (Manual) 3 Lymphocytes % (Manual) 20 (10.0-50.0) Monocytes % (Manual) 6 (0-12) Eosinophils % (Manual) 0 (0-7) Basophils % (Manual) 0 (0.0-2.0) Metamyelocytes % (manual) 0 Myelocytes % (Manual) 0 Promyelocytes % (Manual) 0 Blast Cells % (Manual) 0 Nucleated Red Blood Cells 26.0 % Reactive Lymphocytes 0 Platelet Estimate Decreased Large Platelets Few Anisocytosis (manual) Moderate Macrocytosis Moderate Schistocytes Moderate Sodium Level 134 mmol/L (136-145) Potassium Level 4.6 mmol/L (3.5-5.1) Chloride Level 100 mmol/L (98-107) Carbon Dioxide Level 15 mmol/L (20-31) Anion Gap 19 (5-15) Blood Urea Nitrogen 87 mg/dL (9-23) Creatinine 1.76 mg/dL (0.700-1.30) Glomerular Filtration Rate Calc 41 mL/min (>90) BUN/Creatinine Ratio 49.4 (10.0-20.0) Serum Glucose 164 mg/dL (74-106) Calcium Level 8.4 mg/dL (8.7-10.4) Phosphorus Level 6.1 mg/dL (2.4-5.1) Magnesium Level 2.5 mg/dL (1.6-2.6) Total Bilirubin 5.0 mg/dL (0.2-1.0) Aspartate Amino Transferase (AST) 231 U/L (13-40) Alanine Aminotransferase (ALT) 69 U/L (7-40) Alkaline Phosphatase 912 U/L (46-116) Total Protein 5.5 g/dL (5.7-8.2) Albumin 3.2 g/dL (3.2-4.8) Test 03/26/25 17:40 03/26/25 15:04 03/26/25 06:15 03/25/25 12:00 Body Fluid Source Pleural fluid Body Fluid pH 8.0 Body Fluid WBC (Manual) 1716 CUMM (0-200) Body Fluid RBC (Manual) 1265 CUMM (0-2000) Body Fluid Mononuclear Cells 85 % Body Fluid Polymorphonuclear Cells 15 % (0-25) Iron Level 229 ug/dL (65-175) Total Iron Binding Capacity 255 ug/dL (250-425) Percent Iron Saturation 89.8 % (20-55) Ferritin 2541.6 ng/mL (22-322) B-Type Natriuretic Peptide 116.92 pg/mL (0-100) Smudge Cells 6 /100 WBC Giant Platelets Few Polychromasia Moderate Prothrombin Time 15.6 sec (9.3-11.8) Prothrombin Time INR 1.54 (0.9-1.15) Activated Partial Thromboplast Time 26.7 SEC (24.5-34.5) Urine Color Yellow (Yellow) Urine Clarity Turbid (Clear) Urine pH 5.5 (5.0-9.0) Urine Specific [place] 1.023 (1.001-1.035) Urine Protein Negative (Negative) Urine Ketones Negative (Negative) Urine Blood Negative /uL (Negative) Urine Nitrite Negative (Negative) Urine Bilirubin Negative (Negative) Urine Urobilinogen 6 mg/dL (Negative) Urine Leukocyte Esterase 1+ /uL (Negative) Urine RBC 1 /hpf (0 - 3) Urine Microscopic WBC 7 /HPF (0-3) Urine Squamous Epithelial Cells Few /hpf (<5) Urine Bacteria None seen /hpf (None Seen) Urine Mucus Few (None Seen) Urine Glucose Normal mg/dL (Normal) Test 03/25/25 03:31 03/24/25 14:55 03/24/25 12:55 Acetaminophen Level 5.0 UG/ML (10.0-20.0) Ammonia 23 umol/L (11-32) Hemoglobin A1c 4.1 % A1C (<5.7) Lipase 87 U/L (12-53) Other Laboratory Tests 03/26/25 18:15 Brief Hx & Hospital Course: History of Present Illness The patient is a 70-year-old male with past medical history of gastric cancer, AFib, chronic renal disease, hyperlipidemia, and hypertension who presented to [facility] ED with complaint of generalized body pain for the past 3 weeks. Patient reports he was diagnosed with gastric adenocarcinoma about 1 year ago, has gotten 80% stomach resection, 6 chemotherapy, 4 immunotherapy at [facility], pending appointment next week with Oncology. Patient states in the last 3 weeks, pain has progressively gotten worse, radiating to the neck, chest, right hip, abdomen, back pain; has morphine patch in place, takes Percocet, last dose was this morning without relief. Patient/spouse reports that he has been experiencing poor appetite, generalized weakness, nausea, vomiting, and constipation. Patient was seen and evaluated in the ED, laboratory data shows WBC 15.3, hemoglobin 9.6, hematocrit 28.6, platelets 85835, sodium 133, potassium 3.8, BUN 44, creatinine 1.43, GFR 52, glucose 132, calcium 9.0, total bilirubin 7.8, AST 133, ALT 69, lipase 87, blood pressure 123/75, heart rate 138, temperature 97.7 F, O2 saturation 94% on oxygen. Abdomen/pelvis CT revealing moderate bilateral pleural effusions, large on the right; there is associated atelectasis of the lower lobes; nonobstructing bilateral nephrolithiasis, moderate prostatic enlargement; diffusely mottled appearance of the visualized bony structures likely due to widespread lytic metastatic lesions, less likely due to metabolic disorder other etiology. Patient was started on IV antibiotic regimen Rocephin, please see medication orders section in the computer. On my assessment, at bedside, patient denies chest pain at this moment, no headache, dizziness, diaphoresis, diarrhea, nausea or vomiting at this moment, fever, no chills. Patient was admitted for further evaluation and medical management. Course of hospitalization: Patient had broadening of antibiotic therapy to Meropenem and vancomycin. Given patient's unknown metastasis but persistent generalized body aches with localized pain in his lumbar spine area, three-phase bone scan was ordered. Patient had worsening thrombocytopenia as well as anemia with noted positive stool for occult blood. GI consultation was placed. Patient was treated with Protonix 40 mg IV b.i.d. as well as being given 1 unit PRBC. Patient was on O2 supplementation. Chest x-ray reveals bilateral multifocal pneumonia. Bronchodilators were initiated. IV steroids were also initiated for noted acute liver failure. Pulmonology consultation has also placed. Patient underwent thoracentesis yesterday afternoon. Patient was noted to have decrease in blood pressure. It was noted that patient had a rapid response for which the patient was found unresponsive after using commode. Patient was given volume resuscitation with improvement with the patient's clinical status as well as being upgraded to step-down ICU. While awaiting for room, patient had cardiopulmonary arrest without achieving return of spontaneous circulation. Patient's was made aware yesterday evening. Total time spent with patient discussing and formulating plan of care: 35 minutes. This medical document was created using an electronic medical record system with [employer] system. Although this document has been carefully reviewed, there may still be some phonetic and typographical errors. These areas are purely typographical due to imperfections of the software programs, and do not reflect any compromise in the patient's medical care. Consults/Reason for consult Gastroenterology: Elevated LFTs, gastric cancer Pulmonology: Acute respiratory failure Condition at Discharge: Poor Final Diagnosis/Problems List -sepsis -gastric adenocarcinoma with probable metastasis -elevated LFTs, probable cirrhosis versus metastatic disease -rule out bone metastasis -acute kidney injury -anemia, rule out GI bleed Discharge Disposition: at Hospital Discharge Instruct/Medications Scheduled Atorvastatin Calcium (Lipitor), 20 MG PO HS, (Reported) Buprenorphine (Buprenorphine), 1 PATCH TOP QWEEKLY, (Reported) Chlorthalidone (Chlorthalidone), 25 MG PO DAILY, (Reported) Escitalopram Oxalate (Escitalopram Oxalate), 1 TAB PO DAILY, (Reported) Fenofibrate (Tricor), 145 MG PO DAILY, (Reported) Finasteride (Finasteride), 5 MG PO DAILY, (Reported) Metoprolol Succinate (Metoprolol Succinate Er), 25 MG PO DAILY, (Reported) Pantoprazole Sodium Sesquihydr (Pantoprazole Sodium), 40 MG PO BID Tamsulosin Hcl (Flomax), 1 CAP PO DAILY, (Reported) Zolpidem Tartrate (Ambien), 5 MG PO HS, (Reported) Scheduled PRN Baclofen (Baclofen), 1 TAB PO Q12HP PRN for MUSCLE SPASM, (Reported) Rcutiqhcqd-Khulmgchrirwt-Izedb (Fioricet), Unknown Dose PO DAILY PRN for HEADACHE, (Reported) Oxycodone W/ Acetaminophen (Oxycodone/Acetaminophen 10-300 mg), 1 TAB PO QID PRN for PAIN SCALE 7 THRU 10, (Reported) 36 Discharge Statement: "Patient was advised to return to the ER or call 911 if any headaches, dizziness, shortness of breath, chest pain, abdominal pain, bleeding, fevers, or worsening of medical condition. Patient was counseled about treatment plan, medications, possible side effects, patientverbalized understanding. All questions were answered to the best of my ability. This discharge took greater then 30 minutes in planning, reviewing documentation, counseling the patient, and discussing with other team members." ASSESSMENT ASSESSMENT Assessment Date of Service: Mar 27, 2025 Billing Provider: CORINE ASKEW NP Common Visit Codes: 99111-TZV/OBS DISCH DAY >30min CORINE ASKEW NP Mar 27, 2025 08:30
[2025-03-27] MEDS ORDERED: FUROSEMIDE 40 MG/4 ML VIAL IV SCH (10:00)
[2025-03-27 13:08] LABS: Prostate Specific Antigen 5.3 ng/mL (0.0-4.0)
[2025-03-27 14:07] LABS: Glucose, Body Fluid 43.0 mg/dL (.); LD, Body Fluid 632.0 IU/L (.)
--- NOTE | 2025-04-07 10:15 | DVHSR ---
APPROVED REPORT EXAM: Two-dimensional and M-mode echocardiogram with Doppler and color Doppler. Blood Pressure: 111/67 mmHg INDICATION Heart Failure RISK FACTORS Height: 5'7", Weight: 164 DIMENSIONS LVDd4.0 (3.8-5.7cm)LA (2D) (1.9-4.0cm)Aortic Root (2.0-3.7cm) LVDs2.6 (2.5-4.0cm)LA (MM) (1.9-4.0cm)Aortic Cusp Exc (1.5-2.0cm) EF (%) 64.0 (55-70%)Rt. Atrium5.6 (1.9-4.0cm)Asc. Aorta cm IVSd1.3 (0.7-1.1cm)RV (D)6.0 (1.8-2.4cm) Mitral Valve MitralMitral Stenosis E/A ratio0.02D MVAcm2 Tricuspid Valve TR Velocity3.76m/s [id number] Other Information Quality : Technically LimitedRhythm : Technically limited study due to body habitus and patient position. Conclusion lvef 55% normal rv function, RV enlarged moderately left atrium enlarged no severe valve abnormalities noted moderate pulm htn
== END 2025-03-26 23:50 | DRG 871 ==
LOC: ER 11:34 → OVERFLOW 16:35 → TELE-WESTW 03-25 17:44 → DOU 03-26 18:50 → TELE-WESTW 03-26 20:44
PROVIDERS: ADMIT Nurse Practitioner Acute Care; ATTEND Nurse Practitioner Acute Care
PROC: 0W993ZX Drainage of Right Pleural Cavity, Percutaneous Approach, Diagnostic (ICD-10-PCS; principal; 2025-03-26)
PROC: 30233R1 Transfusion of Nonautologous Platelets into Peripheral Vein, Percutaneous Approach (ICD-10-PCS; 2025-03-26)
PROC: 30233N1 Transfusion of Nonautologous Red Blood Cells into Peripheral Vein, Percutaneous Approach (ICD-10-PCS; 2025-03-26)
PROC: 5A12012 Performance of Cardiac Output, Single, Manual (ICD-10-PCS; 2025-03-26)
PROC: 0BH17EZ Insertion of Endotracheal Airway into Trachea, Via Natural or Artificial Opening (ICD-10-PCS; 2025-03-26)
PROC: 5A1935Z Respiratory Ventilation, Less than 24 Consecutive Hours (ICD-10-PCS; 2025-03-26)
DX: A41.9 Sepsis, unspecified organism (principal); J15.69 Pneumonia due to other Gram-negative bacteria; J96.01 Acute respiratory failure with hypoxia; J15.9 Unspecified bacterial pneumonia; E87.1 Hypo-osmolality and hyponatremia; I12.0 Hypertensive chronic kidney disease with stage 5 chronic kidney disease or end stage renal disease; J98.11 Atelectasis; N17.9 Acute kidney failure, unspecified; C16.9 Malignant neoplasm of stomach, unspecified; J91.8 Pleural effusion in other conditions classified elsewhere; D68.9 Coagulation defect, unspecified; G90.9 Disorder of the autonomic nervous system, unspecified; I48.91 Unspecified atrial fibrillation; D64.9 Anemia, unspecified; K59.00 Constipation, unspecified; K74.60 Unspecified cirrhosis of liver; D69.6 Thrombocytopenia, unspecified; N20.0 Calculus of kidney; D75.89 Other specified diseases of blood and blood-forming organs; E78.5 Hyperlipidemia, unspecified; K76.0 Fatty (change of) liver, not elsewhere classified; E80.6 Other disorders of bilirubin metabolism; I46.9 Cardiac arrest, cause unspecified; Z82.0 Family history of epilepsy and other diseases of the nervous system; Z85.028 Personal history of other malignant neoplasm of stomach; Z90.3 Acquired absence of stomach [part of]; Z99.81 Dependence on supplemental oxygen
CPT/HCPCS: 32555; 36415; 71045; 74176; 76700; 80053; 80329; 81001; 82140; 82270; 82728; 82962; 83036; 83540; 83550; 83605; 83690; 83735; 83880; 83986; 84100; 84154; 85007; 85014; 85018; 85027; 85610; 85730; 86850; 86900; 86901; 86920; 87040; 87071; 87086; 87205; 89051; 93306; 94640; G0378; J2185; J2470; J3490; P9047